=== PATIENT | female | born 1955 | race Caucasian/White ===

== ENCOUNTER 2016-05-11 05:45 | Inpatient (IN) | payer OTHER ==
[2016-05-11] MEDS ORDERED: ASPIRIN 81 MG CHEWABLE TABLETS PO ONE (06:04)
--- NOTE | 2016-05-11 06:14 | PDOC ---
History of Present Illness - General Chief Complaint: Respiratory Distress Stated Complaint: DIFFICULTY BREATHING Time Seen by Provider: 05/11/16 05:53 - History of Present Illness Initial Comments: 05/11/16 06:10 CHIEF COMPLAINT: shortness of breath HISTORY OF PRESENT ILLNESS: 61 yo F with significant PMH of ESRD, breast ca (s/ p surgery, currently undergoing radiation), HTN, SC (s/p CABG- Triple Bypass, 2 Stents), a-fib, aortic stenosis, CHF, GI bleed, anxiety, presents to the ED with shortness of breath. Patient states she is due for dialysis today but "might have drank too much liquid last night" and began feeling short of breath. No recent travel or sick contacts. PAST MEDICAL HISTORY: Denies past medical history FAMILY HISTORY: Denies SOCIAL HISTORY: Denies tobacco, alcohol, illicit drug use. SURGICAL HISTORY: thrombectomy, CABG, stent placement x 2 ALLERGIES: No known drug allergies REVIEW OF SYSTEMS General/Constitutional: Denies fever or chills. Denies weakness, weight change. HEENT: Denies change in vision. Denies ear pain or discharge. Denies sore throat. Cardiovascular: Denies chest pain or shortness of breath. Respiratory: Shortness of breath. Denies cough, wheezing, or hemoptysis. Gastrointestinal: Denies nausea, vomiting, diarrhea or constipation. Genitourinary: ESRD, due for dialysis today. Musculoskeletal: Denies joint or muscle swelling or pain. Denies neck or back pain. Skin and breasts: Denies rash or easy bruising. Neurologic: Denies headache, vertigo, loss of consciousness, or loss of sensation. PHYSICAL EXAM General Appearance: BP 153/136. Anxious, tearful. Appropriately dressed. No apparent distress. HEENT: EOMI, PERRLA. Neck: Supple. Trachea midline. No tenderness, rigidity, carotid bruit, stridor , lymphadenopathy, or thyromegaly. Respiratory/Chest: SOB. Lungs CTAB. No crackles, rales, rhonchi, stridor, wheezing, dullness Cardiovascular: RRR. S1, S2. No JVD, murmur, bradycardia, tachycardia. Vascular Pulses: Dorsalis-Pedis (R): 2+, Dorsalis-Pedis (L): 2+ Gastrointestinal/Abdominal: Normal bowel sounds. Abdomen soft, non-distended. Lymphatic: No adenopathy, tenderness. Musculoskeletal/Extremities: Dialysis fistula to L upper arm. Old dialysis fistula to L forearm, no longer in use. FROM of all extremities, normal capillary refill. No tenderness to extremities, pedal edema, swelling, erythema or deformity. Integumentary: Appropriate color, dry, warm. No cyanosis, erythema, jaundice or rash Neurologic: cleaning specialist II-XII intact. Fully oriented, alert. Appropriate mood/affect. Motor strength 5/5. No appreciable EOM palsy, facial droop or sensory deficit. Past History - Past Medical History Allergies/Adverse Reactions: Allergies Allergy/AdvReac Type Severity Reaction Status Date / Time No Known Drug Allergies Allergy Verified 05/11/16 05:56 PLASTIC TAPE Allergy "RASH,ITCHY Uncoded 05/11/16 05:56 " Home Medications: Ambulatory Orders Aspirin [ASA -] 81 mg PO DAILY 12/04/15 Clopidogrel Bisulfate [Plavix -] 75 mg PO DAILY 12/04/15 Omeprazole [Prilosec] 20 mg PO DAILY 12/04/15 Pravastatin Sodium [Pravachol -] 20 mg PO HS 12/04/15 Sevelamer Carbonate [Renvela -] 2,400 mg PO TID 12/04/15 Metoprolol Succinate [Toprol Xl -] 12.5 mg PO DAILY 01/21/16 Hydrocodone/Acetaminophen [Lortab 5-325 mg Tablet] 1 - 2 each PO QID #30 tablet MDD 5 pills 01/22/16 Anemia: Yes Asthma: Yes Cancer: No Cardiac Disorders: Yes (BYPASS SX X3, 3STENTS) CVA: No COPD: Yes CHF: No Dementia: No Diabetes: No Dialysis: Yes (tues, thurs, sat) GI Disorders: Yes (gerd) Disorders: Yes (esrd) HTN: Yes Hypercholesterolemia: Yes Liver Disease: No Seizures: No Thyroid Disease: No - Surgical History Abdominal Surgery: No Cardiac Surgery: Yes (BYPASS SX X3 stent x 3) Cholecystectomy: Yes Lung Surgery: No Neurologic Surgery: No - Immunization History Immunization Up to Date: Yes (FLU AND PNA ) - Psycho/Social/Smoking Cessation Hx Anxiety: No Suicidal Ideation: No Smoking Status: Yes Smoking History: Former smoker Years of Tobacco Use: 40 Have you smoked in the past 12 months: Yes Number of Cigarettes Smoked Daily: 20 If you are a former smoker, when did you quit?: 4 MONTHS AGO Information on smoking cessation initiated: Yes 'Breaking Loose' booklet given: 05/11/16 Hx Alcohol Use: No Drug/Substance Use Hx: No Substance Use Type: None Hx Substance Use Treatment: No *Physical Exam - Vital Signs Last Vital Signs Temp Pulse Resp BP Pulse Ox 98.1 F 91 H 22 153/136 100 05/11/16 05:56 05/11/16 05:56 05/11/16 05:56 05/11/16 05:56 05/11/16 05:56 ED Treatment Course - LABORATORY CBC & Chemistry Diagram: 05/11/16 10:00 05/11/16 08:03 - RADIOLOGY Radiology Studies Ordered: Category Date Time Status CHEST PA & LAT [RAD] Stat Radiology 05/11/16 06:04 Ordered Medical Decision Making - Medical Decision Making 05/11/16 06:22 61 yo F with significant PMH of ESRD, breast ca, HTN, SC (s/p CABG- Triple Bypass, 2 Stents), a-fib, aortic stenosis, CHF, GI bleed, anxiety, presents to the ED with shortness of breath. BP 153/136 on arrival to ED. EKG indicates ST & T wave changes, inferior/ anterolateral ischemia. Reviewed by myself and ER attending Dawson. Per MD Osman, will start Nitro drip at 10mcg/min. -CBC, CMP, PT/INR, Mg, cardiac profile -CXR -ASA -O2 2L via NC Reviewed most recent EKG from 12/01, EKG is unchanged from previous. BP continues to be elevated to 171/117. Patient complains of headache. -1g Tylenol -1.25 Vasotec IVPB Chest x-ray notable for increased fluids to lower lobes bilaterally. Will admit to tele. Cards consult placed. Nephrology consult ordered as patient is due for dialysis today. *DC/Admit/Observation/Transfer Diagnosis at time of Disposition: Shortness of breath at rest, Renal failure, ESRD (end stage renal disease) on dialysis
[2016-05-11] MEDS ORDERED: NITROGLYCERIN 25MG/D5W 250ML 250 ML IVPB SCH (06:15)
[2016-05-11] MEDS ORDERED: ASPIRIN 81 MG CHEWABLE TABLETS ONE (06:31)
[2016-05-11] MEDS ORDERED: NITROGLYCERIN 25MG/D5W 250ML 250 ML IVPB ONE (06:31)
[2016-05-11 06:40] LABS: EOSINOPHIL 0.2 % (0-4.5); MCH 35.5 pg (25.7-33.7); MCHC 32.7 g/dl (32.0-36.0); MEAN CELL VOLUME 108.4 fl (80-96); MEAN PLT VOLUME 9.7 fl (7.5-11.1); NEUTROPHILS 80.4 % (42.8-82.8); PLATELET COUNT 226 K/MM3 (134-434); RDW 17.9 % (11.6-15.6)
[2016-05-11] MEDS ORDERED: ENALAPRILAT DIHYDRATE 1.25 MG/1 ML VIAL IVPB ONE (07:00)
[2016-05-11] MEDS ORDERED: ACETAMINOPHEN 500 MG TABLET (FP) PO ONE (07:00)
[2016-05-11] MEDS ORDERED: ENALAPRILAT DIHYDRATE 2.5 MG/2 ML VIAL IVPB ONE (07:05)
--- NOTE | 2016-05-11 07:43 | PDOC ---
*Physical Exam - Vital Signs Last Vital Signs Temp Pulse Resp BP Pulse Ox 98.1 F 91 H 22 132/93 100 05/11/16 05:56 05/11/16 05:56 05/11/16 05:56 05/11/16 07:12 05/11/16 05:56 ED Treatment Course - LABORATORY CBC & Chemistry Diagram: 05/11/16 10:00 05/11/16 08:03 - ADDITIONAL ORDERS Additional order review: Laboratory Results 05/11/16 05/11/16 06:26 06:26 INR Cancelled Sodium Cancelled Potassium Cancelled Chloride Cancelled Carbon Dioxide Cancelled Anion Gap Cancelled BUN Cancelled Creatinine Cancelled Creat Clearance w eGFR Cancelled Random Glucose Cancelled Calcium Cancelled Magnesium Cancelled Total Bilirubin Cancelled AST Cancelled ALT Cancelled Alkaline Phosphatase Cancelled Creatine Kinase Cancelled Troponin I Cancelled Total Protein Cancelled Albumin Cancelled 05/11/16 06:26 RBC 3.04 L MCV 108.4 H MCHC 32.7 RDW 17.9 H MPV 9.7 D Neutrophils % 80.4 Lymphocytes % 12.8 D Monocytes % 3.6 L Eosinophils % 0.2 D Basophils % 3.0 H D - Medications Given in the ED: ED Medications Discontinued Medications Generic Name Dose Route Start Last Admin Trade Name Freq PRN Reason Stop Dose Admin Aspirin 162 mg 05/11/16 06:04 05/11/16 06:49 Asa - PO 05/11/16 06:05 162 mg ONCE ONE Administration Enalaprilat 1.25 mg 05/11/16 07:00 05/11/16 07:07 Vasotec Injection - IVPB 05/11/16 07:01 1.25 mg ONCE ONE Administration Nitroglycerin/Dextrose 250 mls @ 6 mls/hr 05/11/16 06:15 05/11/16 06:49 Nitroglycerin 25mg/D5w 250ml IVPB 6 mls/hr TITR JULIO Administration 10 MCG/MIN Medical Decision Making - Medical Decision Making 05/11/16 07:18 Patient received in sign out from KATIE Montanez. Patient with complaints of shortness of breath worsening this morning. Patient with history of end-stage renal, breast CA, and is followed by Dr. Piper for nephrology. Patient states is due for dialysis today. Patient initially was started on a nitro drip and was given Vasotec due to elevated blood pressure. Patient currently is normotensive. Patient be stopped on the nitro drip until I speak with Dr. Piper. Patient's chest x-ray does show increased lung markings, comp is pending. No acute EKG changes noted when compared to previous November 2015. BNP added 05/11/16 07:42 Case discussed with suborbital states will put patient on dialysis today and agrees that nature drip should be. Since she states patient is sensitive hypertensive patient and will become hypotensive in dialysis. Patient otherwise comfortable with 100% nonrebreather but will assess her O2 sat on 3 L nasal cannula. 05/11/16 08:33 D-dimer was also added. Patient currently satting at 97% with 3 L nasal cannula. Awaiting callback from Dr. Philip for [facility] inpatient admission. 05/11/16 10:00 comp hemolyzed and was resent. Case discussed with Dr. Philip who accepted patient. Patient currently in route to dialysis. *DC/Admit/Observation/Transfer Diagnosis at time of Disposition: Shortness of breath at rest, Renal failure, ESRD (end stage renal disease) on dialysis - Discharge Dispostion Admit: Yes
--- NOTE | 2016-05-11 09:47 | CON.NEP ---
Consult Consult Specialty:: Nephrology Referred by:: ER attending Reason for Consultation:: ESRD - History of Present Illness Chief Complaint: Shortness of breath History of Present Illness: 61 with CAD post CABG has stents as well LV dysf 2016 diagnosed with left breast cancer underwent left mastectomy in Jan 2016 Doing poorly post RT Lives alone Weak In with Shortness of breath was due today claims they took off 3 kg less than what she had on on because of hypotension - History Source History Provided By: Patient - Past Medical History Cardio/Vascular: Yes: AFIB, Aortic Stenosis, CAD, CHF, HTN, Hyperlipdemia, [place], Pulmonary Hypertension Pulmonary: Yes: Asthma, COPD Gastrointestinal: Yes: GI Bleed (colitis, requiring transfusions), Other ( COLITIS ) Renal/: Yes: Renal Failure, Hemodialysis ...LMP: 12/11/10 Psych: Yes: Anxiety - Past Surgical History Past Surgical History: Yes: None, AV Fistula/Graft, Stent - Alcohol/Substance Use Hx Alcohol Use: No - Smoking History Smoking history: Former smoker Have you smoked in the past 12 months: Yes Aproximately how many cigarettes per day: 20 If you are a former smoker, when did you quit?: 4 MONTHS AGO - Social History Usual Living Arrangement: Other (daughter is here for 5 days and then sister is arriving on from [facility]) ADL: Independent History of Recent Travel: No Home Medications - Allergies Allergies/Adverse Reactions: Allergies Allergy/AdvReac Type Severity Reaction Status Date / Time No Known Drug Allergies Allergy Verified 05/11/16 05:56 PLASTIC TAPE Allergy "RASH,ITCHY Uncoded 05/11/16 05:56 " - Home Medications Home Medications: Ambulatory Orders Aspirin [ASA -] 81 mg PO DAILY 12/04/15 Clopidogrel Bisulfate [Plavix -] 75 mg PO DAILY 12/04/15 Omeprazole [Prilosec] 20 mg PO DAILY 12/04/15 Pravastatin Sodium [Pravachol -] 20 mg PO HS 12/04/15 Sevelamer Carbonate [Renvela -] 2,400 mg PO TID 12/04/15 Metoprolol Succinate [Toprol Xl -] 12.5 mg PO DAILY 01/21/16 Hydrocodone/Acetaminophen [Lortab 5-325 mg Tablet] 1 - 2 each PO QID #30 tablet MDD 5 pills 01/22/16 Home Medications (free text): arimidex 1 mg daily Review of Systems - Review of Systems Respiratory: reports: Wheezing Nephrology Consult - Height Height: 5 ft 4 in - Weight Weight: 227 lb 1.218 oz - BMI Body Mass Index (BMI): 38.9 - Lab Results Anion Gap: Anion Gap Anion Gap Cancelled 05/11/16 06:26 - Imaging Chest X-ray: Image Reviewed - Physical Examination Vital Signs: Vital Signs Temperature 97.9 F 05/11/16 08:29 Pulse Rate 73 05/11/16 08:29 Respiratory Rate 18 05/11/16 08:29 Blood Pressure 136/92 05/11/16 08:29 O2 Sat by Pulse Oximetry (%) 100 05/11/16 08:29 Respiratory: Yes: Wheezes Edema: Yes Assessment/Plan 61 with CAD ESRD obesity breast cancer post mastectomy RT and now on po arimidex on asa plavix metoprolol REnvela as her binder Appears with fluid on board wheezing To UF her for 1.5 hr target 2 kg HD for 2 hrs target 2 kg admit repeat HD in am
[2016-05-11 09:49] LABS: ANISOCYTOSIS 1+; POLYCHROMASIA 1+
--- NOTE | 2016-05-11 10:54 | PN ---
Progress Note (short form) - Note Progress Note: Cardiology Consult Dictated 1. Chronic COPD 2. ESRD 3. CAD s/p CABG, PCI 11/2015 4. Chronic Diastolic CHF 5. Aortic stenosis, moderate 6. Moderate Carotid Stenosis 7. PAF 8. History of GI bleed 9. Breast CA s/p lumpectomy, completed XRT now on hormonal Rx. 10. Anxiety Presents to ER with worsening PEREZ, CXR appears volume overloaded. REC: 1. HD for volume removal, also planned for tomorrow 2. Echo to re-assess severity 3. Cycle cardiac enzymes 4. Cont ASA and Plavix, recent PCI (within the year) 5. Low dose Toprol XL- 12.5 daily (has been reduced due to low BP at HD)
--- NOTE | 2016-05-11 10:58 | EKG ---
Test Reason : Blood Pressure : / mmHG Vent. Rate : 105 BPM Atrial Rate : 107 BPM P-R Int : 000 ms QRS Dur : 100 ms QT Int : 332 ms P-R-T Axes : 000 049 229 degrees QTc Int : 438 ms UNDETERMINED RHYTHM ABNORMAL ECG WHEN COMPARED WITH ECG OF 06-DEC-2015 01:03, BASELINE ARTIFACT MAKES IT DIFFICULAT TO INTERPRETE Confirmed by ALIYAH HAN MD ([id number]) on 05/11/2016 10:58:08 AM Referred By: Confirmed By:ALIYAH HAN MD
[2016-05-11 11:20] LABS: ALBUMIN 3.3 g/dl (3.4-5.0); BILIRUBIN,TOTAL 0.4 mg/dL (0.2-1.0); CALCIUM 7.4 mg/dL (8.5-10.1); MAGNESIUM 2.1 mg/dL (1.8-2.4); PHOSPHOROUS 5.3 mg/dL (2.5-4.9); TOT PROT 6.7 g/dl (6.4-8.2)
[2016-05-11 11:30] LABS: MCH 35.5 pg (25.7-33.7); MCHC 32.4 g/dl (32.0-36.0); MEAN CELL VOLUME 109.8 fl (80-96); MEAN PLT VOLUME 9.2 fl (7.5-11.1); PLATELET COUNT 166 K/MM3 (134-434); RDW 17.5 % (11.6-15.6); WHITE BLOOD COUNT 5.7 K/mm3 (4.0-10.0)
[2016-05-11 11:34] LABS: TROPONIN I 0.05 ng/ml (0.00-0.05)
[2016-05-11 11:40] LABS: CREATININE 10.7 mg/dL (0.55-1.02)
[2016-05-11 11:48] LABS: INR 1.15 (0.82-1.09); PROTHROMBIN TIME (PATIENT) 12.7 SEC (9.98-11.88)
[2016-05-11] MEDS: METOPROLOL SUCCINATE 25 MG TAB.SR.24H (FP) PO SCH (14:38)
--- NOTE | 2016-05-11 16:35 | CONS ---
CARDIOLOGY CONSULTATION DATE OF CONSULTATION: 05/11/2016 REQUESTING PHYSICIAN: Roxanne Philip MD REASON FOR CONSULTATION: Congestive heart failure. HISTORY OF PRESENT ILLNESS: The patient is well known to our service from office and prior hospitalizations. She is a 61-year-old female with multiple medical problems including chronic COPD, recently quit smoking; end-stage renal disease on dialysis; coronary artery disease status post CABG several years ago and PCI, most recently November 2015; chronic diastolic CHF; moderate aortic stenosis; moderate carotid stenosis; paroxysmal atrial fibrillation, not on full anticoagulation due to history of previous severe GI bleed; breast cancer status post lumpectomy, completed radiation therapy, now on hormonal therapy; and anxiety. She now presents to the emergency room with approximately 1 day of worsening shortness of breath. Patient reports that she has not had dietary indiscretions; she has been going to dialysis regularly, although she reports several sessions have been cut slightly short due to the consistent development of hypotension during dialysis. She denies chest pain, palpitations, PND, orthopnea, fevers, chills, or cough. Her chest x-ray appears mildly volume overloaded, without gross infiltrates. She has allergies to PLASTIC TAPE but no known drug allergies. Her home medications include Toprol-XL 12.5 daily, aspirin 81 daily, Plavix 75 daily, Pravachol 20 mg nightly, Renvela, Prilosec. FAMILY HISTORY: Noncontributory. SOCIAL HISTORY: Patient quit smoking 1 week ago. She denies alcohol or illicit drug use. PHYSICAL EXAMINATION: General: Patient is currently stable, without complaints on dialysis. Vital Signs: Temperature 97.9, pulse 73 and regular, blood pressure 136/92, O2 saturation 100 on room air. Heart: S1, S2. There is a 2/6 systolic murmur at the right sternal border consistent with her known history of aortic stenosis. Chest: With decreased breath sounds at the bases. Abdomen: Generally soft, nontender. No rebound or guarding. Extremities: No edema. Her presenting EKG showed sinus tachycardia at 105 beats per minute with left ventricular hypertrophy and diffuse ST and T changes. Chest x-ray is as above. LABORATORY DATA: White count 8, hematocrit 33, platelets 226. D-dimer pending. Basic metabolic panel is pending including 1st set of troponins and BNP. ASSESSMENT: A 61-year-old female with end-stage renal disease on dialysis; chronic hypotension at dialysis, sometimes limiting full volume removal; coronary artery disease status post coronary artery bypass graft, percutaneous coronary intervention November 2015; paroxysmal atrial fibrillation, not on anticoagulation due to previous history of gastrointestinal bleed; moderate aortic stenosis; chronic diastolic congestive heart failure; now presents with worsening shortness of breath and volume overload. PLAN: 1. Dialysis today and planned again tomorrow for volume removal. 2. Cycle cardiac enzymes. 3. Echocardiogram to reassess EF and severity of aortic stenosis. 4. Continue aspirin and Plavix. 5. Try to continue low-dose Toprol for coronary disease benefit as well as prevention of paroxysmal atrial fibrillation - we have needed to reduce the dose due to hypotension at HD which may be due either to aortic stenosis or perhaps subclavian stenosis. Appreciate nephrology evaluation. Will follow. Thank you for the consultation. NICOLE MENDEZ M.D. [id number]
[2016-05-11] MEDS ORDERED: morphine CARPU-JECT 4 MG/1 ML DISP.SYRIN IVPUSH ONE (17:16)
[2016-05-11] MEDS ORDERED: morphine CARPU-JECT 4 MG/1 ML DISP.SYRIN ONE (17:17)
[2016-05-12 00:36] VITALS: BMI 38.1
--- NOTE | 2016-05-12 01:58 | HP ---
Admitting History and Physical - Admission Chief Complaint: SOB History of Present Illness: Pt is a 61 y/o morbidly obese female w/ multiple medical problems including ESRD on HD(TIW). Pt had dialysis on sat. but states she thinks they did not take off all of her fluid bc pt began to feel SOB. PT denied any chest pain/ palpitations. Pt has also been undergoing RT for breast ca wc has make her weaker. On admission her BNP was >86,000. - Past Medical History Cardiovascular: Yes: AFIB, Aortic Stenosis, CAD, CHF, HTN, Hyperlipdemia, [place], Pulmonary Hypertension Pulmonary: Yes: Asthma, COPD Gastrointestinal: Yes: GI Bleed (colitis, requiring transfusions), Other ( COLITIS ) Renal/: Yes: Renal Failure, Hemodialysis ...LMP: 12/11/10 ...: No Heme/Onc: Yes: Cancer (Recently diagnoses breast Cancer) Psych: Yes: Anxiety - Past Surgical History Past Surgical History: Yes: AV Fistula/Graft, CABG, Cholecystectomy, Stent Additional Past Surgical History: Lt mastectomy - Smoking History Smoking history: Former smoker Have you smoked in the past 12 months: Yes Aproximately how many cigarettes per day: 20 If you are a former smoker, when did you quit?: 1 weak ago - Alcohol/Substance Use Hx Alcohol Use: No - Social History ADL: Independent History of Recent Travel: No Home Medications - Allergies Allergies/Adverse Reactions: Allergies Allergy/AdvReac Type Severity Reaction Status Date / Time No Known Drug Allergies Allergy Verified 05/11/16 05:56 PLASTIC TAPE Allergy "RASH,ITCHY Uncoded 05/11/16 05:56 " - Home Medications Home Medications: Ambulatory Orders Aspirin [ASA -] 81 mg PO DAILY 12/04/15 Clopidogrel Bisulfate [Plavix -] 75 mg PO DAILY 12/04/15 Omeprazole [Prilosec] 20 mg PO DAILY 12/04/15 Pravastatin Sodium [Pravachol -] 20 mg PO HS 12/04/15 Sevelamer Carbonate [Renvela -] 2,400 mg PO TID 12/04/15 Metoprolol Succinate [Toprol Xl -] 12.5 mg PO DAILY 01/21/16 Hydrocodone/Acetaminophen [Lortab 5-325 mg Tablet] 1 - 2 each PO QID #30 tablet MDD 5 pills 01/22/16 Family Disease History - Family Disease History Family History: Unremarkable Review of Systems - Review of Systems Constitutional: reports: Malaise, Weakness Neck: reports: No Symptoms Cardiovascular: reports: Shortness of Breath Respiratory: reports: SOB Gastrointestinal: reports: No Symptoms Genitourinary: reports: No Symptoms Physical Examination Vital Signs: Vital Signs Temperature 97.7 F 05/11/16 23:25 Pulse Rate 85 05/11/16 23:25 Respiratory Rate 20 05/11/16 23:25 Blood Pressure 100/50 05/11/16 23:25 O2 Sat by Pulse Oximetry (%) 96 05/12/16 00:16 Constitutional: Yes: Well Nourished HENT: Yes: WNL Neck: Yes: Supple Cardiovascular: Yes: WNL, Regular Rate and Rhythm, Murmur Respiratory: Yes: Rales Gastrointestinal: Yes: WNL, Normal Bowel Sounds, Soft Musculoskeletal: Yes: WNL Edema: No Neurological: Yes: WNL, Alert, Oriented Labs: CBC, BMP 05/11/16 10:00 05/11/16 10:00 Problem List - Problems (1) ESRD (end stage renal disease) on dialysis Assessment/Plan: Pt received dialysis and is scheduled again for am Monitor electroyltes Cont renvela As per renal Code(s): N18.6 - END STAGE RENAL DISEASE Z99.2 - DEPENDENCE ON RENAL DIALYSIS (2) Chronic combined systolic (congestive) and diastolic (congestive) heart failure Assessment/Plan: Check echo Diuresis as per cardio Code(s): I50.42 - CHRONIC COMBINED SYSTOLIC AND DIASTOLIC HRT FAIL (3) HTN (hypertension) Assessment/Plan: BP stable Code(s): I10 - ESSENTIAL (PRIMARY) HYPERTENSION (4) Aortic stenosis Assessment/Plan: Repeat echo Code(s): I35.0 - NONRHEUMATIC AORTIC (VALVE) STENOSIS (5) Atrial fibrillation Assessment/Plan: Paroxysmal afib Pt is in NSR Code(s): I48.91 - UNSPECIFIED ATRIAL FIBRILLATION Qualifiers: Atrial fibrillation type: paroxysmal Qualified Code(s): I48.0 - Paroxysmal atrial fibrillation (6) CAD (coronary artery disease) Code(s): I25.10 - ATHSCL HEART DISEASE OF [place] CORONARY ARTERY W/O ANG PCTRS (7) HLD (hyperlipidemia) Code(s): E78.5 - HYPERLIPIDEMIA, UNSPECIFIED (8) S/P CABG (coronary artery bypass graft) Code(s): Z95.1 - PRESENCE OF AORTOCORONARY BYPASS GRAFT
[2016-05-12] MEDS ORDERED: ACETAMINOPHEN 325 MG TABLET (FP) PO ONE (06:45)
--- NOTE | 2016-05-12 09:02 | PN ---
Progress Note (short form) - Note Progress Note: RENAL FEELS BETTER CHEST CLEAR MASTECTOMY WOUND HEALED EXT NO EDEMA LEFT ARM AVG POS BRUIT 61 CAD LV DYSF ESRD OBESITY GAINS A LOT OF FLUID BETWEEN TREATMENTS INSPITE OF REPEATED COUNSELLING 4 KG REMOVED YESTERDAY K WAS ELEVATED AT 6.5 YESTERDAY BP LOW 90S TODAY BEST TO HOLD HD TODAY IF GOES HOME WILL COME TO [place] FOR DIALYSIS THURS IF INHOUSE WILL DO HER HERE ERNESTINA GETTING ECHO DONE HERE ALL NOTES REVIEWED
--- NOTE | 2016-05-12 09:18 | PN ---
Progress Note, Physician Chief Complaint: echo being performed. Patient reports skin sensitivity due to prior XRT Explained importance of obtaining echo to assess for progression, especially important in light of low BP at HD History of Present Illness: for HD again today BP running low: 90-100mmHg - Current Medication List Current Medications: Active Medications Aspirin (Asa -) 81 mg PO DAILY [facility] Atorvastatin Calcium (Lipitor -) 10 mg PO HS [facility]UL[facility] Clopidogrel Bisulfate (Plavix -) 75 mg PO DAILY [facility] Epoetin Lobo (Epogen -) 10,000 units SQ ONCE ONE Stop: 05/12/16 09:04 Heparin Sodium (Porcine) (Heparin -) 5,000 unit SQ BID [facility] Metoprolol Succinate (Toprol Xl -) 12.5 mg PO DAILY [facility] Last Admin: 05/11/16 14:38 Dose: Not Given Non-Formulary Medication (Hydrocodone/Acetaminophen [Lortab 5-325 Mg Tablet]) 1 - 2 each PO QID [facility] Sevelamer Carbonate (Renvela -) 2,400 mg PO TIDCM [facility] - Objective Vital Signs: Vital Signs Temperature 97.9 F 05/12/16 06:20 Pulse Rate 76 05/12/16 06:20 Respiratory Rate 20 05/12/16 06:20 Blood Pressure 93/52 05/12/16 06:20 O2 Sat by Pulse Oximetry (%) 96 05/12/16 00:16 Constitutional: Yes: No Distress Eyes: Yes: Conjunctiva Clear Cardiovascular: Yes: Regular Rate and Rhythm (2/6 IRISH RSB) Respiratory: Yes: Other (clear anteriorly with decreased basilar breath sounds, no wheezing.) Gastrointestinal: Yes: Soft, Abdomen, Obese Edema: No Neurological: Yes: Alert, Oriented ...Motor Strength: WNL Labs: INR, PTT INR 1.15 (0.82-1.09) H 05/11/16 10:00 Laboratory Tests 05/11/16 05/11/16 05/11/16 06:26 08:03 10:00 WBC 8.0 Hgb Hct 33.0 Plt Count 226 D Sodium 136 Pending Potassium 6.5 H* D Cancelled BUN 81 H D Pending Creatinine 10.7 H* D Pending Phosphorus 5.3 H Alkaline Phosphatase 228 H D Creatine Kinase 74 Troponin I 0.05 B-Natriuretic Peptide 27558.41 H 05/11/16 10:00 WBC 5.7 Hgb 10.1 L Hct 31.1 L Plt Count 166 D Sodium Potassium BUN Creatinine Phosphorus Alkaline Phosphatase Creatine Kinase Troponin I B-Natriuretic Peptide - ....Imaging Ultrasound: Report Reviewed (Repeat carotid US: moderate to severe b/l carotid stenosis.), Image Reviewed Assessment/Plan Cardiology Consult Dictated 1. Chronic COPD 2. ESRD 3. CAD s/p CABG, PCI 11/2015 at [facility] 4. Chronic Diastolic CHF 5. Aortic stenosis, moderate 6. Moderate to severe bilateral carotid stenosis 7. PAF 8. History of GI bleed 9. Breast CA s/p lumpectomy, completed XRT now on hormonal Rx. 10. Anxiety Presents to ER with worsening PEREZ, volume overloaded: acute on chronic decompensated diastolic CHF, possibly valvular CHF. REC: 1. HD for volume removal, planned again today as/if BP allows. 2. Echo to re-assess severity being performed this morning. 3. Cycle cardiac enzymes, 2nd set was cancelled for unclear reasons. 4. Cont ASA and Plavix, recent PCI (within the year) 5. Low dose Toprol XL- 12.5 daily as BP tolerates(has been reduced from 25mg due to low BP at HD) If aortic stenosis is not found to be severe, then vascular etiology of low BP should be explored (subclavian stenosis?).
[2016-05-12] MEDS ORDERED: HYDROCODONE PO SCH (10:00)
[2016-05-12] MEDS ORDERED: [UNRECOGNIZED DRUG - OTHER] PO SCH (10:00)
[2016-05-12] MEDS ORDERED: ACETAMINOPHEN PO SCH (10:00)
[2016-05-12] MEDS: ASPIRIN 81 MG CHEWABLE TABLETS PO SCH (10:42)
[2016-05-12] MEDS: HEPARIN NA (PORCINE) 5,000 UNITS/ML 1ML VIAL SQ SCH ×3 (10:42→21:57)
[2016-05-12] MEDS: METOPROLOL SUCCINATE 25 MG TAB.SR.24H (FP) PO SCH (10:43)
[2016-05-12] MEDS: CLOPIDOGREL BISULFATE 75 MG TABLET (FP) PO SCH (10:43)
[2016-05-12] MEDS: SEVELAMER CARBONATE 800 MG TAB (FP) PO SCH ×3 (10:48→17:58)
[2016-05-12] MEDS ORDERED: EPOETIN ALFA 10,000 UNIT/1 ML VIAL SQ ONE (11:30)
[2016-05-12] MEDS ORDERED: ACETAMINOPHEN 325 MG TABLET (FP) ONE (21:51)
[2016-05-12] MEDS ORDERED: ATORVASTATIN CA 10 MG TABLET (FP) PO SCH (22:00)
[2016-05-13 00:06] LABS: HEP B SURFACE AB Reactive (.)
[2016-05-13] MEDS: SEVELAMER CARBONATE 800 MG TAB (FP) PO SCH ×2 (09:00→13:45)
--- NOTE | 2016-05-13 10:08 | PN ---
Progress Note, Physician Chief Complaint: no distress HD not done yesterday, BP limited. Scheduled for today She denies CP, less SOB. Echo done yesterday but report not available - Current Medication List Current Medications: Active Medications Aspirin (Asa -) 81 mg PO DAILY [facility] Last Admin: 05/12/16 10:42 Dose: 81 mg Atorvastatin Calcium (Lipitor -) 10 mg PO HS [facility] Last Admin: 05/12/16 21:57 Dose: 10 mg Clopidogrel Bisulfate (Plavix -) 75 mg PO DAILY [facility] Last Admin: 05/12/16 10:43 Dose: 75 mg Epoetin Lobo (Epogen -) 10,000 units SQ ONCE ONE Stop: 05/12/16 09:04 Heparin Sodium (Porcine) (Heparin -) 5,000 unit SQ BID [facility] Last Admin: 05/12/16 21:57 Dose: Not Given Metoprolol Succinate (Toprol Xl -) 12.5 mg PO DAILY [facility] Last Admin: 05/12/16 10:43 Dose: 12.5 mg Non-Formulary Medication (Hydrocodone/Acetaminophen [Lortab 5-325 Mg Tablet]) 1 - 2 each PO QID [facility] Sevelamer Carbonate (Renvela -) 2,400 mg PO TIDCM [facility] Last Admin: 05/13/16 09:00 Dose: 2,400 mg - Objective Vital Signs: Vital Signs Temperature 98.2 F 05/13/16 08:41 Pulse Rate 81 05/13/16 08:41 Respiratory Rate 20 05/13/16 08:41 Blood Pressure 156/67 05/13/16 08:41 O2 Sat by Pulse Oximetry (%) 96 05/12/16 21:00 Constitutional: Yes: No Distress Cardiovascular: Yes: Regular Rate and Rhythm Respiratory: Yes: Other (slight rales right base, overall improved) Gastrointestinal: Yes: Soft Edema: No Neurological: Yes: Alert, Oriented Labs: INR, PTT INR 1.15 (0.82-1.09) H 05/11/16 10:00 Assessment/Plan Cardiology Consult Dictated 1. Chronic COPD 2. ESRD 3. CAD s/p CABG, PCI 11/[address] [facility] 4. Chronic Diastolic CHF 5. Aortic stenosis, moderate 6. Moderate to severe bilateral carotid stenosis 7. PAF 8. History of GI bleed 9. Breast CA s/p lumpectomy, completed XRT now on hormonal Rx. 10. Anxiety Admitted with worsening PEREZ, volume overloaded: acute on chronic decompensated diastolic CHF, possibly valvular CHF. REC: 1. HD for volume removal, planned again today (05/13) as/if BP allows- not done yesterday. 2. Echo to re-assess severity being performed 05/12, awaiting report. 3. Cycle cardiac enzymes, 2nd set was cancelled again yesterday; will order again for today with planned HD. 4. Cont ASA and Plavix, recent PCI (within the year) 5. Low dose Toprol XL- 12.5 daily as BP tolerates(has been reduced from 25mg due to low BP at HD) May need to hold completely on HD days.
[2016-05-13] MEDS: CLOPIDOGREL BISULFATE 75 MG TABLET (FP) PO SCH ×2 (10:52→14:26)
[2016-05-13] MEDS: METOPROLOL SUCCINATE 25 MG TAB.SR.24H (FP) PO SCH ×2 (10:52→14:26)
[2016-05-13] MEDS: ASPIRIN 81 MG CHEWABLE TABLETS PO SCH ×2 (10:52→14:26)
[2016-05-13] MEDS: HEPARIN NA (PORCINE) 5,000 UNITS/ML 1ML VIAL SQ SCH (10:52)
[2016-05-13 11:12] LABS: BASOPHIL 0.5 % (0-2.0); EOSINOPHIL 0.5 % (0-4.5); MCH 35.6 pg (25.7-33.7); MCHC 32.7 g/dl (32.0-36.0); MEAN CELL VOLUME 108.8 fl (80-96); MEAN PLT VOLUME 8.6 fl (7.5-11.1); NEUTROPHILS 78.4 % (42.8-82.8); PLATELET COUNT 149 K/MM3 (134-434); RDW 17.3 % (11.6-15.6); WHITE BLOOD COUNT 4.3 K/mm3 (4.0-10.0)
[2016-05-13] MEDS ORDERED: EPOETIN ALFA 10,000 UNIT/1 ML VIAL SQ ONE (11:30)
[2016-05-13 11:37] LABS: ALBUMIN 2.9 g/dl (3.4-5.0); BILIRUBIN,TOTAL 0.4 mg/dL (0.2-1.0); CALCIUM 7.5 mg/dL (8.5-10.1); TOT PROT 6.1 g/dl (6.4-8.2)
[2016-05-13 11:46] LABS: TROPONIN I 0.05 ng/ml (0.00-0.05)
[2016-05-13 12:07] LABS: CREATININE 10.9 mg/dL (0.55-1.02)
[2016-05-13 14:23] VITALS: BP 111/69; PULSE 82; TEMP 97.9
== END 2016-05-13 18:08 | disposition home or self-care (01) | DRG 291 ==
LOC: JER 05:45 → JERBED 09:12 → J6S 20:16 → OBSVTOIN 05-12 01:51
PROVIDERS: ADMIT Internal Medicine; ATTEND Internal Medicine
PROC: 5A1D60Z (ICD-10-PCS; principal; 2016-05-11)
DX: I13.2 Hypertensive heart and chronic kidney disease with heart failure and with stage 5 chronic kidney disease, or end stage renal disease (principal); N18.6 End stage renal disease; I50.33 Acute on chronic diastolic (congestive) heart failure; E66.2 Morbid (severe) obesity with alveolar hypoventilation; J44.9 Chronic obstructive pulmonary disease, unspecified; I25.10 Atherosclerotic heart disease of native coronary artery without angina pectoris; I35.0 Nonrheumatic aortic (valve) stenosis; I48.0 Paroxysmal atrial fibrillation; Z85.3 Personal history of malignant neoplasm of breast; F41.8 Other specified anxiety disorders; E78.5 Hyperlipidemia, unspecified; I25.2 Old myocardial infarction; I27.2 Other secondary pulmonary hypertension; I65.23 Occlusion and stenosis of bilateral carotid arteries; J45.909 Unspecified asthma, uncomplicated; Z68.38 Body mass index [BMI] 38.0-38.9, adult; Z71.3 Dietary counseling and surveillance; Z87.891 Personal history of nicotine dependence; Z95.1 Presence of aortocoronary bypass graft; Z95.5 Presence of coronary angioplasty implant and graft
CPT/HCPCS: 36415; 71010-TC; 80053; 82550; 83735; 83880; 84100; 84484; 85025; 85027; 85379; 85610; 86704; 86706; 86708; 86803; 87340; 93005; 93010; 93306-TC; 93880-TC; 99285-25; G0378; J0885; J1644

== ENCOUNTER → 2016-09-21 | Emergency (ER) | payer OTHER ==
[2016-09-21 12:33] VITALS: TEMP 97.8; BMI 35.2
--- NOTE | 2016-09-21 12:49 | PDOC ---
History of Present Illness - General History Source: Patient Exam Limitations: No Limitations <Taisha Rios - Last Filed: 09/21/16 14:11> - General History Source: Patient Exam Limitations: No Limitations - History of Present Illness Initial Comments: 09/21/16 13:47 The patient is a 61 year old, with significant past medical history of end stage renal disease (dialysis , , Tue), breast cancer (s/p left breast mastectomy 01/2017), HTN, [place] (s/p CABG - triple bypass, 2 stents), A-fib, aortic stenosis, CHF, GI bleed, and anxiety , who presents today complaining of shortness of breath starting at midnight, and left upper back pain. The patient is due for dialysis today. The patient was elevated on 4 pillows last night with mild relief. She also used her at home O2. The patient has a cough, but states that this usually occurs when she uses the nasal O2. The patients son states that the patient does not seem abnormally bloated and he has been watching what she ate.The patient notes that the left upper back pain has been present since the mastectomy. Her PCP already had an X Ray performed and she has followed up with her oncologist who states that it is muscular. She notes that her dry weight is 103.3 kilos. No chest pain. No fever, chills, nausea, vomiting. Allergies:plastic tape Social Hx: Tobacco use. PCP- Dr. Sandoval Brown Home Based Assistant: Dr. Piper [place] Supervisor: Dr. Cartwright <Geogrina Hanna - Last Filed: 09/21/16 18:34> - General Chief Complaint: Shortness of Breath Stated Complaint: Shortness of Breath Time Seen by Provider: 09/21/16 12:40 Past History - Past Medical History Anemia: Yes Asthma: Yes Cancer: No Cardiac Disorders: Yes (BYPASS SX X3, 3STENTS) CVA: No COPD: Yes CHF: No Dementia: No Diabetes: No Dialysis: Yes (, , tue) GI Disorders: Yes (gerd) Disorders: Yes (esrd) HTN: Yes Hypercholesterolemia: Yes Liver Disease: No Seizures: No Thyroid Disease: No - Surgical History Abdominal Surgery: No Cardiac Surgery: Yes (BYPASS SX X3 stent x 3) Cholecystectomy: Yes Lung Surgery: No Neurologic Surgery: No - Immunization History Immunization Up to Date: Yes (FLU AND PNA 2012-) - Psycho/Social/Smoking Cessation Hx Anxiety: No Suicidal Ideation: No Smoking Status: Yes Smoking History: Current some day smoker Years of Tobacco Use: 40 Have you smoked in the past 12 months: Yes Number of Cigarettes Smoked Daily: 1 If you are a former smoker, when did you quit?: 4 MONTHS AGO Information on smoking cessation initiated: No 'Breaking Loose' booklet given: 05/11/16 Hx Alcohol Use: No Drug/Substance Use Hx: No Substance Use Type: None Hx Substance Use Treatment: No <Taisha Rios - Last Filed: 09/21/16 14:11> <Georgina Hanna - Last Filed: 09/21/16 18:34> - Past Medical History Allergies/Adverse Reactions: Allergies Allergy/AdvReac Type Severity Reaction Status Date / Time No Known Drug Allergies Allergy Verified 09/21/16 12:29 PLASTIC TAPE Allergy "RASH,ITCHY Uncoded 09/21/16 12:29 " Home Medications: Ambulatory Orders Aspirin [ASA -] 81 mg PO DAILY 12/04/15 Omeprazole [Prilosec] 20 mg PO DAILY 12/04/15 Pravastatin Sodium [Pravachol -] 20 mg PO HS 12/04/15 Sevelamer Carbonate [Renvela -] 2,400 mg PO TID 12/04/15 Clopidogrel Bisulfate [Plavix -] 75 mg PO DAILY tablet 05/13/16 Metoprolol Succinate [Toprol XL -] 12.5 mg PO DAILY #30 tab.sr.24h 05/13/16 Review of Systems - Review of Systems Able to Perform ROS?: Yes Comments:: 09/21/16 13:49 GENERAL/CONSTITUTIONAL: No: fever, chills, weakness, loss of appetite. HEAD, EYES, EARS, NOSE AND THROAT: No: change in vision, ear pain, discharge, sore throat, throat swelling. CARDIOVASCULAR: No: chest pain, lightheadedness, palpitations, syncope RESPIRATORY: +cough, SOB. No: wheezing, hemoptysis, stridor. GASTROINTESTINAL: No: nausea, vomiting, abdominal cramping, diarrhea, rectal bleeding, constipation. GENITOURINARY: No: dysuria, hematuria, frequency, urgency, flank pain. MUSCULOSKELETAL: No: back pain, neck pain, joint pain, muscle swelling or pain SKIN: No: lesions, pallor, rash or easy bruising. NEUROLOGIC: No: headache, vertigo, paresthesias, weakness ENDOCRINE: No: unexplained weight gain or loss HEMATOLOGIC/LYMPHATIC: No: anemia, easy bleeding, swelling nodes <CelsabronwynGeorgina marie - Last Filed: 09/21/16 18:34> *Physical Exam - Vital Signs Last Vital Signs Temp Pulse Resp BP Pulse Ox 97.8 F 28 L 93 H 144/64 95 09/21/16 12:29 09/21/16 12:29 09/21/16 12:29 09/21/16 12:29 09/21/16 12:29 <GabrielTaisha - Last Filed: 09/21/16 14:11> - Vital Signs Last Vital Signs Temp Pulse Resp BP Pulse Ox 97.8 F 81 93 H 144/64 99 09/21/16 12:29 09/21/16 12:48 09/21/16 12:29 09/21/16 12:29 09/21/16 12:48 - Physical Exam Comments: 09/21/16 13:49 GENERAL: The patient is in no acute distress. HEAD: Normal with no signs of trauma. EYES: PERRLA, EOMI, sclera anicteric, conjunctiva clear. ENT: Ears normal, nares patent, oropharynx clear without exudates. Moist mucous membranes. NECK: Normal range of motion, supple without lymphadenopathy, JVD, or masses. LUNGS: Faint expiratory wheeze in left lower lobe. Decreased breath sounds. No crackles. HEART:Regular rate and rhythm, 3 out of 6 systolic ejection murmur, No rubs or gallop. CHEST: Left breast mastectomy. Radiation changes. ABDOMEN: Soft, nontender, normoactive bowel sounds. No guarding, no rebound. EXTREMITIES: Normal range of motion, no edema. No clubbing or cyanosis. No erythema, or tenderness. NEUROLOGICAL: Cranial nerves II through XII grossly intact. Normal speech. No focal neurological deficits. MUSCULOSKELETAL: Back nontender to palpation, no CVA tenderness SKIN: Warm, Dry, normal turgor, no rashes or lesions noted. <CyndiGeorgina - Last Filed: 09/21/16 18:34> Heart Score/ECG Review #1 ECG reviewed & interpreted by me at: 13:02 09/21/16 13:02 Twelve-lead EKG was performed and reviewed by me. There is normal sinus rhythm with a normal rate of 82 bpm. The axis is normal. The intervals are normal - pr: 148ms, QRS:104ms, QTc:42ms. There are no ST elevations. T wave inversion I, II , III, AVF, v4-v6 <Taisha Rios - Last Filed: 09/21/16 14:11> ED Treatment Course - LABORATORY CBC & Chemistry Diagram: 09/21/16 12:51 09/21/16 12:51 <Taisha Rios - Last Filed: 09/21/16 14:11> - LABORATORY CBC & Chemistry Diagram: 09/21/16 12:51 09/21/16 12:51 - ADDITIONAL ORDERS Additional order review: 09/21/16 12:51 RBC 3.22 L MCV 110.0 H MCHC 32.4 RDW 18.1 H MPV 8.0 Neutrophils % 82.1 Lymphocytes % 12.5 Monocytes % 3.5 L Eosinophils % 0.6 Basophils % 1.3 - RADIOLOGY Radiograph Interpretation: 09/21/16 13:54 EXAM#: TYPE/EXAM: RESULT: [id number] RAD/CHEST X-RAY PORTABLE* Shortness of breath. Single portable chest x-ray. Comparison study May 11, 2016. Cardiomegaly. Sternal wires. Calcified aortic arch. No evidence of widening of the superior mediastinum. No evidence of vascular congestion, moderate consolidation atelectasis. No pleural effusion, or pneumothorax is seen. Intact visualized osseous structures. Impression. No evidence of active disease. Reported By: Forest Jenkins MD 09/21/16 1329 <Georgina Hanna - Last Filed: 09/21/16 18:34> Medical Decision Making - Medical Decision Making 09/21/16 12:48 A portion of this note was documented by scribe services under my direction. I have reviewed the details of the note, within reason, and agree with the documentation with the following case summary and management plan written by me. Nursing documentation reviewed and incorporated into medical decision making 09/21/16 12:57 61 yo F h/o HTN, HLD, ESRD on HD (dialyzed Tuesday, , Tuesday) Last dialysis was [facility] Weight after dialysis 102.6 (Dry weight 103.3) Pt denies taking excessive salt She has had a cough with sputum, unchanged from prior No fevers or chills No chest pain Pt had left upper back pain which has been present since her mastectomy Presents to the ER with son via EMS due to shortness of breath pt unable to lay flat because she feels that she is drowning Pt has had to use her supplemental O2 According to patient son, she has a new cough He does not believe she is fluid overloaded Will do labs Will do portable cxr EKG Will re assess Pt needs dialysis 09/21/16 13:25 Laboratory Tests 09/21/16 12:51 WBC 6.0 D Hgb 11.5 D Hct 35.4 D Plt Count 205 D Laboratory Tests 09/21/16 12:51 Sodium 136 Potassium 6.1 H* Chloride 97 L Carbon Dioxide 24 BUN 80 H Creatinine 11.0 H* Random Glucose 91 D Creatine Kinase 37 Troponin I 0.04 B-Natriuretic Peptide 56943.64 H 09/21/16 14:[address] Piper Pt can be discharged to her dialysis center She requested that I contact them to be sure that they can take her I have contacted them - [phone] THey state patient should be sent to dialysis now I have explained this to the patient She is upset about this Requesting that she be admitted and have dialysis here I have contacted Dr Piper She states, pt should be sent to dialysis Pt son will pick her up Pt requesting food Will discharge to go to dialysis with son I have had a long conversation with this patient If she feels any new symptoms despite dialysis, she should return to the ER 09/21/16 14:10 <Taisha Rios - Last Filed: 09/21/16 14:11> - Medical Decision Making 09/21/16 18:33 Dr. Piper was called via office phone at 1:50pm. Dr. Piper was connected and spoke with her regarding the patient's care. <Georgina Hanna - Last Filed: 09/21/16 18:34> *DC/Admit/Observation/Transfer - Discharge Dispostion Admit: No <Taisha Rios - Last Filed: 09/21/16 14:11> - Attestations Scribe Attestion: 09/21/16 13:50 Documentation prepared by AMI Alejandro, acting as infertility medical assistant for Taisha Rios MD. <Georgina Hanna - Last Filed: 09/21/16 18:34> Diagnosis at time of Disposition: SOB (shortness of breath) - Discharge Dispostion Disposition: HOME Condition at time of disposition: Stable - Referrals Referrals: aSndoval Brown MD [Primary Care Provider] - Ania Piper MD [Staff Physician] - - Patient Instructions Printed Discharge Instructions: DI for Dialysis Additional Instructions: Return to the emergency department immediately with ANY new, persistent or worsening symptoms. Continue any medications as previously prescribed by your physician. You should follow up with your primary doctor as soon as possible regarding today's emergency department visit. . Please make sure your doctor reviews the results of your emergency evaluation. Thank you for coming to the Emergency Department today for your care. It was a pleasure to see you today. Please note that your evaluation is INCOMPLETE until you follow-up with your doctor.
[2016-09-21 12:57] LABS: BASOPHIL 1.3 % (0-2.0); EOSINOPHIL 0.6 % (0-4.5); MCH 35.6 pg (25.7-33.7); MCHC 32.4 g/dl (32.0-36.0); NEUTROPHILS 82.1 % (42.8-82.8); PLATELET COUNT 205 K/MM3 (134-434); RDW 18.1 % (11.6-15.6)
[2016-09-21 13:26] LABS: ALBUMIN 3.5 g/dl (3.4-5.0); BILIRUBIN,TOTAL 0.4 mg/dL (0.2-1.0); CALCIUM 8.9 mg/dL (8.5-10.1); TOT PROT 7.1 g/dl (6.4-8.2)
[2016-09-21 13:41] LABS: COCKROFT - GAULT 8.5; TROPONIN I 0.04 ng/ml (0.00-0.05)
[2016-09-21 14:20] VITALS: BP 159/59; PULSE 83
--- NOTE | 2016-09-22 12:34 | EKG ---
Test Reason : Blood Pressure : / mmHG Vent. Rate : 082 BPM Atrial Rate : 082 BPM P-R Int : 148 ms QRS Dur : 104 ms QT Int : 364 ms P-R-T Axes : -18 049 228 degrees QTc Int : 425 ms NORMAL SINUS RHYTHM ABNORMAL ECG WHEN COMPARED WITH ECG OF 11-MAY-2016 05:55, SINUS RHYTHM HAS REPLACED JUNCTIONAL RHYTHM Confirmed by FREIDA AREVALO MD ([id number]) on 09/22/2016 12:33:36 PM Referred By: Confirmed By:FREIDA AREVALO MD
== END | disposition home or self-care (01) ==
LOC: JER 12:20
DX: R06.02 Shortness of breath (principal); I25.10 Atherosclerotic heart disease of native coronary artery without angina pectoris; I13.2 Hypertensive heart and chronic kidney disease with heart failure and with stage 5 chronic kidney disease, or end stage renal disease; N18.6 End stage renal disease; I50.9 Heart failure, unspecified; Z99.2 Dependence on renal dialysis; Z95.1 Presence of aortocoronary bypass graft; Z95.5 Presence of coronary angioplasty implant and graft; I25.2 Old myocardial infarction; I48.91 Unspecified atrial fibrillation; Z79.01 Long term (current) use of anticoagulants; I35.0 Nonrheumatic aortic (valve) stenosis; F41.9 Anxiety disorder, unspecified; K21.9 Gastro-esophageal reflux disease without esophagitis; J45.909 Unspecified asthma, uncomplicated; Z85.3 Personal history of malignant neoplasm of breast; Z90.12 Acquired absence of left breast and nipple
CPT/HCPCS: 36415; 71010-TC; 80053; 82550; 83880; 84484; 85025; 93005; 93010; 99284-25

== ENCOUNTER 2017-01-13 13:19 | Inpatient (IN) | payer OTHER ==
--- NOTE | 2017-01-13 13:41 | PDOC ---
History of Present Illness - General Stated Complaint: DIFF BREATHING Time Seen by Provider: 01/13/17 13:39 Past History - Past Medical History Allergies/Adverse Reactions: Allergies Allergy/AdvReac Type Severity Reaction Status Date / Time No Known Drug Allergies Allergy Verified 09/21/16 12:29 PLASTIC TAPE Allergy "RASH,ITCHY Uncoded 09/21/16 12:29 " Home Medications: Ambulatory Orders Aspirin [ASA -] 81 mg PO DAILY 12/04/15 Omeprazole [Prilosec] 20 mg PO DAILY 12/04/15 Pravastatin Sodium [Pravachol -] 20 mg PO HS 12/04/15 Sevelamer Carbonate [Renvela -] 2,400 mg PO TID 12/04/15 Clopidogrel Bisulfate [Plavix -] 75 mg PO DAILY tablet 05/13/16 Metoprolol Succinate [Toprol XL -] 12.5 mg PO DAILY #30 tab.sr.24h 05/13/16 Anemia: Yes Asthma: Yes Cancer: No Cardiac Disorders: Yes (BYPASS SX X3, 3STENTS) CVA: No COPD: Yes CHF: No Dementia: No Diabetes: No Dialysis: Yes (tues, thurs, sat) GI Disorders: Yes (gerd) Disorders: Yes (esrd) HTN: Yes Hypercholesterolemia: Yes Liver Disease: No Seizures: No Thyroid Disease: No - Surgical History Abdominal Surgery: No Cardiac Surgery: Yes (BYPASS SX X3 stent x 3) Cholecystectomy: Yes Lung Surgery: No Neurologic Surgery: No - Immunization History Immunization Up to Date: Yes (FLU AND PNA 2012-) - Suicide/Smoking/Psychosocial Hx Smoking Status: Yes Smoking History: Former smoker Years of Tobacco Use: 40 Have you smoked in the past 12 months: Yes Number of Cigarettes Smoked Daily: 20 If you are a former smoker, when did you quit?: 4 MONTHS AGO 'Breaking Loose' booklet given: 05/11/16 Hx Alcohol Use: No Drug/Substance Use Hx: No Substance Use Type: None Hx Substance Use Treatment: No
--- NOTE | 2017-01-13 13:44 | PDOC ---
Attending Attestation - HPI HPI: 01/13/17 14:25 Pt is a 61 yo F with a PMHx of end stage renal disease (dialysis Tues, Thurs, Sat), breast cancer (s/p left breast mastectomy 01/2017), HTN, [place] (s/p CABG - triple bypass, 2 stents), A-fib, aortic stenosis, CHF, GI bleed, and anxiety who presents to the ED with cough for the past 2 days. Patient complains of diffuse body aches, generalized weakness and chills. Patient reports sick contact with her grand daughter. Note, patient missed HD today. PCP: Dr. Sandoval Brown Associate Software Development Engineer: Dr. Piper Diecast Machine Operator: Dr. Cartwright - Physicial Exam PE: 01/13/17 14:25 GENERAL: Awake, alert, and fully oriented, in no acute distress HEAD: No signs of trauma EYES: PERRLA, EOMI, sclera anicteric, conjunctiva clear ENT: Auricles normal inspection, hearing grossly normal, nares patent, oropharynx clear without exudates. Moist mucosa NECK: Normal ROM, supple, no lymphadenopathy, JVD, or masses LUNGS: + wheezing. Breath sounds equal, clear to auscultation bilaterally. No crackles HEART: Regular rate and rhythm, normal S1 and S2, no murmurs, rubs or gallops ABDOMEN: +obese. Soft, nontender, normoactive bowel sounds. No guarding, no rebound. No masses EXTREMITIES: +LUE AV Fistula with bruit and thrill. +legs are thin Normal range of motion, no edema. No clubbing or cyanosis. No cords, erythema, or tenderness NEUROLOGICAL: Cranial nerves II through XII grossly intact. Normal speech, normal gait SKIN: Warm, Dry, normal turgor, no rashes or lesions noted. - Medical Decision Making 01/13/17 14:25 01/13/17 16:15-- Call placed to Dr. Philip 01/13/17 16:19-- Second call placed to Dr. Philip 01/13/17 16:20-- Dr. Philip responded ot the page and the patients case was discussed. Patient admitted under Maria Luisa Philip's service Documentation prepared by Rhonda Lambert, acting as diploma medical assistant for Deborah Handy DO <Rhonda Lambert - Last Filed: 01/13/17 16:19> - Resident Resident Name: Luan Strauss - ED Attending Attestation I have performed the following: I have examined & evaluated the patient, The case was reviewed & discussed with the resident, I agree w/resident's findings & plan, Exceptions are as noted - Medical Decision Making 01/13/17 13:43 I, Dr. Deborah Handy, DO, attest that this document has been prepared under my direction and personally reviewed by me in its entirety. I further attest, that it accurately reflects all work, treatment, procedures and medical decision -making performed by me. 01/13/17 14:16 a/p: 61yo female with cough/congestion - did miss HD today -wheezing on exam -labs -xray -concern for flu vs pna vs volume overload -cxr -ekg -reassess 01/13/17 14:18 states dry weight 103kg, currently 98kg 01/13/17 14:18 Dr. Piper at the bedside to see the patient. 01/13/17 16:[address] Piper who wants to do HD today 01/13/17 16:[address] Philip for admission 01/13/17 16:[address] Philip who accepts pt to service. <Deborah Handy - Last Filed: 01/13/17 16:23> Discharge Disposition <FaustoRhnoda - Last Filed: 01/13/17 16:19> - Discharge Dispostion Last Admission D/C Date: 05/13/16 Admit: Yes <Deborah Handy - Last Filed: 01/13/17 16:23> - Diagnosis ESRD (end stage renal disease) on dialysis, Shortness of breath at rest - Discharge Dispostion Condition at time of disposition: Fair - Referrals Referrals: Sandoval Brown MD [Primary Care Provider] - Heart Score/ECG Review - ECG Intrepretation Comment:: 01/13/17 14:17 sinus at 79, nl axis, nl interval, t wave inversions inferior/lateral - unchanged from prior <Deborah Handy - Last Filed: 01/13/17 16:23>
--- NOTE | 2017-01-13 14:14 | PDOC ---
History of Present Illness - General Chief Complaint: Respiratory Stated Complaint: DIFF BREATHING Time Seen by Provider: 01/13/17 13:39 History Source: Patient Exam Limitations: No Limitations - History of Present Illness Initial Comments: 01/13/17 14:08 Patient is a 61F with history of ESRD, CHF, CAD, SC s/p stenting, Breast cancer (s/p left sided mastectomy 03/03, radiation therapy and hormonal inhibition), and asthma here today complaining of a dry cough for the past two days. She says specifically that this does not feel like the other times that she's been fluid overloaded. She says that her granddaughter was sick a few days before she was. She's also complaining of diffuse muscle aches in her back , arms and legs. She denies fevers, nausea and vomiting, but endorses chills. She denies chest pain, shortness of breath, abdominal pain and increased leg swelling. She's never had a blood clot in the past. Past History - Past Medical History Allergies/Adverse Reactions: Allergies Allergy/AdvReac Type Severity Reaction Status Date / Time No Known Drug Allergies Allergy Verified 01/13/17 13:42 PLASTIC TAPE Allergy "RASH,ITCHY Uncoded 01/13/17 14:37 " Home Medications: Ambulatory Orders Aspirin [ASA -] 81 mg PO DAILY 12/04/15 Omeprazole [Prilosec] 20 mg PO DAILY 12/04/15 Pravastatin Sodium [Pravachol -] 20 mg PO HS 12/04/15 Sevelamer Carbonate [Renvela -] 2,400 mg PO TID 12/04/15 Clopidogrel Bisulfate [Plavix -] 75 mg PO DAILY tablet 05/13/16 Metoprolol Succinate [Toprol XL -] 12.5 mg PO DAILY #30 tab.sr.24h 05/13/16 Anemia: Yes Asthma: Yes Cancer: No Cardiac Disorders: Yes (BYPASS SX X3, 3STENTS) CVA: No COPD: Yes CHF: No Dementia: No Diabetes: No Dialysis: Yes (tues, thurs, sat) GI Disorders: Yes (gerd) Disorders: Yes (esrd) HTN: Yes Hypercholesterolemia: Yes Liver Disease: No Seizures: No Thyroid Disease: No - Surgical History Abdominal Surgery: No Cardiac Surgery: Yes (BYPASS SX X3 stent x 3) Cholecystectomy: Yes Lung Surgery: No Neurologic Surgery: No - Immunization History Immunization Up to Date: Yes (FLU AND PNA 2012-) - Suicide/Smoking/Psychosocial Hx Smoking Status: Yes Smoking History: Unknown if ever smoked Years of Tobacco Use: 40 Have you smoked in the past 12 months: Yes Number of Cigarettes Smoked Daily: 20 If you are a former smoker, when did you quit?: 4 MONTHS AGO 'Breaking Loose' booklet given: 05/11/16 Hx Alcohol Use: No Drug/Substance Use Hx: No Substance Use Type: None Hx Substance Use Treatment: No Review of Systems - Review of Systems Comments:: 01/13/17 14:12 GENERAL/CONSTITUTIONAL: Positive for chills. Negative for fever. HEAD, EYES, EARS, NOSE AND THROAT: No change in vision. Positive for sore throat. CARDIOVASCULAR: No chest pain. Positive for shortness of breath. RESPIRATORY: Positive for cough. Negative for wheezing, or hemoptysis. GASTROINTESTINAL: No nausea, vomiting, diarrhea or constipation. GENITOURINARY: No dysuria, frequency, or change in urination. MUSCULOSKELETAL: Positive for aches in arms, shoulders, legs and back. SKIN: No rash NEUROLOGIC: Positive for headache. Negative for vertigo, loss of consciousness, or change in strength/sensation. ENDOCRINE: No increased thirst. No abnormal weight change HEMATOLOGIC/LYMPHATIC: No anemia, easy bleeding, or history of blood clots. ALLERGIC/IMMUNOLOGIC: No hives or skin allergy. *Physical Exam - Vital Signs Last Vital Signs Temp Pulse Resp BP Pulse Ox 98.7 F 80 18 132/75 99 01/13/17 13:20 01/13/17 13:20 01/13/17 13:20 01/13/17 13:20 01/13/17 13:20 - Physical Exam Comments: 01/13/17 14:13 GENERAL: Awake, alert, and fully oriented, in no acute distress HEAD: No signs of trauma, normocephalic, atraumatic EYES: PERRLA, EOMI, sclera anicteric, conjunctiva clear ENT: Auricles normal inspection, hearing grossly normal, nares patent, oropharynx clear without exudates. Moist mucosa NECK: Normal ROM, supple, no lymphadenopathy, JVD, or masses LUNGS: No distress, speaks full sentences, scattered wheezes in lower lung [place] HEART: Regular rate and rhythm, normal S1 and S2, no murmurs, rubs or gallops, peripheral pulses normal and equal bilaterally. ABDOMEN: Soft, nontender, normoactive bowel sounds. No guarding, no rebound. No masses EXTREMITIES: Normal inspection, Normal range of motion, no edema. No clubbing or cyanosis. NEUROLOGICAL: Cranial nerves II through XII grossly intact. Normal speech, normal gait, no focal sensorimotor deficits SKIN: Warm, Dry, normal turgor, no rashes or lesions noted. ED Treatment Course - LABORATORY CBC & Chemistry Diagram: 01/13/17 14:00 01/13/17 14:00 Medical Decision Making - Medical Decision Making 01/13/17 14:14 61F with history of ESRD, CHF, CAD s/p stenting, SC, HTN, and breast ca here today complaining of dry cough. Vital signs stable. Positive sick contact. Flu shot a week ago, but would not be effective yet. Will evaluate with ekg, labs, cxr and flu swab. Believe that this is mostly likely a viral infection. Refusing cardiac monitoring due to skin sensitivity to adhesive. Placed on SpO2 monitoring. ECG shows normal sinus rhythm, normal axis, normal rate. Inverted t-waves are in I, II, III, aVL, aVF, V3-V6. Unchanged from prior EKGs. 01/13/17 15:23 Laboratory Tests 01/13/17 01/13/17 14:00 14:00 WBC 5.1 Hgb 11.4 Hct 35.6 Plt Count 216 Potassium 5.3 H BUN 40 H D Creatinine 8.2 H* D Random Glucose 117 H D B-Natriuretic Peptide 00653.27 H CBC normal. K 5.3, Cr 8.2, BNP of 87k, but exam is not consistent with heart failure or fluid overload. 01/13/17 15:57 CXR shows no acute cardiopulmonary process. Shows stable cardiac enlargement. Will admit to [facility] for SOB. Patient requires HD after missing her session.. *DC/Admit/Observation/Transfer Diagnosis at time of Disposition: ESRD (end stage renal disease) on dialysis, Shortness of breath at rest - Discharge Dispostion Disposition: HOME Condition at time of disposition: Fair Admit: No
[2017-01-13] MEDS ORDERED: ALBUTEROL SO4 2.5/IPRATROPIUM 0.5 INH SOL 3 ML VIAL.NEB. NEB ONE ×2 (14:17→14:23)
[2017-01-13 14:30] LABS: BASOPHIL 0.8 % (0-2.0); EOSINOPHIL 0.3 % (0-4.5); MCH 33.7 pg (25.7-33.7); MEAN CELL VOLUME 105.3 fl (80-96); MEAN PLT VOLUME 8.2 fl (7.5-11.1); PLATELET COUNT 216 K/MM3 (134-434); RDW 16.8 % (11.6-15.6); WHITE BLOOD COUNT 5.1 K/mm3 (4.0-10.0)
[2017-01-13 14:43] LABS: INR 1.2 (0.82-1.09); PROTHROMBIN TIME (PATIENT) 13.2 SEC (9.98-11.88)
--- NOTE | 2017-01-13 14:46 | CON.NEP ---
Consult Consult Specialty:: NEPHROLOGY Referred by:: ER Reason for Consultation:: ESRD - History of Present Illness Chief Complaint: SOB FOR 2 DAYS History of Present Illness: 61 WITH CAD LV DYSF RECENT LEFT MASTECTOMY RT END OF 2015 SICK SINCE TUESDAY ACTIVE SMOKER 6 CIG /DAY COUGH WHITE PHLEGM NO FEVER ACHY DENIES RUNNY NOSE FLU SHOT LAST WEEK - History Source History Provided By: Patient - Past Medical History Cardio/Vascular: Yes: AFIB, Aortic Stenosis, CAD, CHF, HTN, Hyperlipdemia, MS, Pulmonary Hypertension Pulmonary: Yes: Asthma, COPD Gastrointestinal: Yes: GI Bleed (colitis, requiring transfusions), Other ( COLITIS ) Renal/: Yes: Renal Failure, Hemodialysis ...LMP: 12/11/10 Psych: Yes: Anxiety - Past Surgical History Past Surgical History: Yes: AV Fistula/Graft, CABG, Cholecystectomy, Stent - Alcohol/Substance Use Hx Alcohol Use: No - Smoking History Smoking history: Current every day smoker Have you smoked in the past 12 months: Yes Aproximately how many cigarettes per day: 20 If you are a former smoker, when did you quit?: 4 MONTHS AGO - Social History Usual Living Arrangement: Other (daughter is here for 5 days and then sister is arriving on tues from [facility]) ADL: Independent History of Recent Travel: No Home Medications - Allergies Allergies/Adverse Reactions: Allergies Allergy/AdvReac Type Severity Reaction Status Date / Time No Known Drug Allergies Allergy Verified 01/13/17 13:42 PLASTIC TAPE Allergy "RASH,ITCHY Uncoded 01/13/17 14:37 " - Home Medications Home Medications: Ambulatory Orders Aspirin [ASA -] 81 mg PO DAILY 12/04/15 Omeprazole [Prilosec] 20 mg PO DAILY 12/04/15 Pravastatin Sodium [Pravachol -] 20 mg PO HS 12/04/15 Sevelamer Carbonate [Renvela -] 2,400 mg PO TID 12/04/15 Clopidogrel Bisulfate [Plavix -] 75 mg PO DAILY tablet 05/13/16 Metoprolol Succinate [Toprol XL -] 12.5 mg PO DAILY #30 tab.sr.24h 05/13/16 Review of Systems Unable to obtain ROS, reason: FEELS VERY ILL CRYING Nephrology Consult - Height Height: 5 ft 5 in - Weight Weight: 217 lb 2.485 oz - BMI Body Mass Index (BMI): 36.1 - Lab Results CBC,BMP: CBC, BMP 01/13/17 14:00 - Imaging Chest X-ray: Image Reviewed - Physical Examination Vital Signs: Vital Signs Temperature 98.7 F 01/13/17 13:20 Pulse Rate 80 01/13/17 13:20 Respiratory Rate 18 01/13/17 13:20 Blood Pressure 132/75 01/13/17 13:20 O2 Sat by Pulse Oximetry (%) 99 01/13/17 13:20 Constitutional: Yes: Anxious Respiratory: Yes: Wheezes Access for Hemodialysis: AV Fistula Edema: No Assessment/Plan 61 WITH ESRD HERE WITH FEELING ILL ACHY NO FEVER SATS OK SOUNDS WHEEZY R/O FLU NEEDS NEBS NO FLUIDS PLEASE DIET 2GM NA 2GM K 1 L FLUID RESTRICTION WILL DIALYZE TODAY FOLLOW CHEM BP RUNS LOW MEDS REVIEWED
[2017-01-13 14:55] LABS: ALBUMIN 3.3 g/dl (3.4-5.0); ANION GAP 14 (8-16); BILIRUBIN,TOTAL 0.4 mg/dL (0.2-1.0); CALCIUM 7.7 mg/dL (8.5-10.1); CO2 28 mmol/L (21-32); GLUCOSE,RANDOM 117 mg/dL (74-106); SGOT/AST 11 U/L (15-37); SGPT/ALT 11 U/L (12-78); TOT PROT 7.1 g/dl (6.4-8.2)
[2017-01-13 15:10] LABS: ALK PHOS 304 U/L (45-117); CPK 52 IU/L (26-192); TROPONIN I 0.03 ng/ml (0.00-0.05)
[2017-01-13 15:15] LABS: CREATININE 8.2 mg/dL (0.55-1.02)
--- NOTE | 2017-01-13 15:53 | EKG ---
Test Reason : Blood Pressure : / mmHG Vent. Rate : 079 BPM Atrial Rate : 079 BPM P-R Int : 144 ms QRS Dur : 102 ms QT Int : 392 ms P-R-T Axes : 006 048 212 degrees QTc Int : 449 ms NORMAL SINUS RHYTHM CANNOT RULE OUT INFERIOR INFARCT , AGE UNDETERMINED ABNORMAL ECG WHEN COMPARED WITH ECG OF 21-SEP-2016 12:34, NO SIGNIFICANT CHANGE WAS FOUND Confirmed by MARIVEL LOWRY MD ([id number]) on 01/13/2017 3:53:36 PM Referred By: Confirmed By:MARVIEL LOWRY MD
[2017-01-13] MEDS ORDERED: ACETAMINOPHEN 325 MG TABLET (FP) PO ONE (23:00)
--- NOTE | 2017-01-13 23:26 | HP ---
Admitting History and Physical - Admission History of Present Illness: Pt is a 61 morbidly obese female w/ PMH significant for ESRD on dialysis, CAD, AFIB, CHF, HTN, HLD, NM, , asthma, GIB and anxiety. Pt states that for the past 3-4 days she has been haivng URI symptoms. She has a productive cough w/ clear mucous production and generalized bodyaches. Pt thinks she has had a temp but in the ER she was afebrile w/ normal WBC. Pt missed her dialysis appointment. Pt denies any SOB and no wheezing. CXR done in er did not show any acute pathology. - Past Medical History Cardiovascular: Yes: AFIB, Aortic Stenosis, CAD, CHF, HTN, Hyperlipdemia, NM, Pulmonary Hypertension Pulmonary: Yes: Asthma, COPD Gastrointestinal: Yes: GI Bleed (colitis, requiring transfusions), Other ( COLITIS ) Renal/: Yes: Renal Failure, Hemodialysis ...LMP: 12/11/10 Heme/Onc: Yes: Cancer (Recently diagnoses breast Cancer) Psych: Yes: Anxiety - Past Surgical History Past Surgical History: Yes: AV Fistula/Graft, CABG, Cholecystectomy, Stent - Smoking History Smoking history: Unknown if ever smoked Have you smoked in the past 12 months: Yes Aproximately how many cigarettes per day: 20 If you are a former smoker, when did you quit?: 4 MONTHS AGO - Alcohol/Substance Use Hx Alcohol Use: No - Social History ADL: Independent History of Recent Travel: No Home Medications - Allergies Allergies/Adverse Reactions: Allergies Allergy/AdvReac Type Severity Reaction Status Date / Time No Known Drug Allergies Allergy Verified 01/13/17 13:42 PLASTIC TAPE Allergy "RASH,ITCHY Uncoded 01/13/17 14:37 " - Home Medications Home Medications: Ambulatory Orders Aspirin [ASA -] 81 mg PO DAILY 12/04/15 Pravastatin Sodium [Pravachol -] 40 mg PO HS 12/04/15 Sevelamer Carbonate [Renvela -] 2,400 mg PO TID 12/04/15 Clopidogrel Bisulfate [Plavix -] 75 mg PO DAILY tablet 05/13/16 Anastrozole [Arimidex -] 1 mg PO HS 01/13/17 Cinacalcet HCl [Sensipar] 60 mg PO DAILY 01/13/17 Folic Acid/Vit Bcomp,C [Alysa-Alexandria Tablet] 0.8 mg PO DAILY 01/13/17 Metoprolol Succinate [Toprol XL -] 12.5 mg PO HS 01/13/17 Pantoprazole Sodium [Protonix] 40 mg PO DAILY 01/13/17 Family Disease History - Family Disease History Family History: Unremarkable Review of Systems - Review of Systems Constitutional: reports: Fever, Loss of Appetite, Malaise, Weakness HENT: reports: No Symptoms Neck: reports: No Symptoms Cardiovascular: reports: No Symptoms Respiratory: reports: Cough Gastrointestinal: reports: No Symptoms Physical Examination Vital Signs: Vital Signs Temperature 98.4 F 01/13/17 17:10 Pulse Rate 72 01/13/17 20:39 Respiratory Rate 18 01/13/17 20:39 Blood Pressure 132/58 01/13/17 20:39 O2 Sat by Pulse Oximetry (%) 99 01/13/17 16:10 Constitutional: Yes: Well Nourished Neck: Yes: WNL, Supple Cardiovascular: Yes: WNL, Regular Rate and Rhythm Respiratory: Yes: Diminished, Wheezes Gastrointestinal: Yes: WNL, Normal Bowel Sounds, Soft Problem List - Problems (1) Asthma exacerbation Assessment/Plan: Cont IV ceftriaxone/nebulizers Will add steroids Pulmonary consult Code(s): J45.901 - UNSPECIFIED ASTHMA WITH (ACUTE) EXACERBATION (2) ESRD (end stage renal disease) on dialysis Assessment/Plan: Pt received dialysis today As per renal Monitor electrolytes Code(s): N18.6 - END STAGE RENAL DISEASE Z99.2 - DEPENDENCE ON RENAL DIALYSIS (3) Chronic combined systolic (congestive) and diastolic (congestive) heart failure Assessment/Plan: BNP elevated >89,000 Check echo Cardio consult Code(s): I50.42 - CHRONIC COMBINED SYSTOLIC AND DIASTOLIC HRT FAIL (4) HTN (hypertension) Assessment/Plan: Cont toprol BP stable Code(s): I10 - ESSENTIAL (PRIMARY) HYPERTENSION (5) CAD (coronary artery disease) Assessment/Plan: Cont plavix Code(s): I25.10 - ATHSCL HEART DISEASE OF [place] CORONARY ARTERY W/O ANG PCTRS (6) HLD (hyperlipidemia) Assessment/Plan: Cont pravachol Code(s): E78.5 - HYPERLIPIDEMIA, UNSPECIFIED (7) Hx of CABG Code(s): Z95.1 - PRESENCE OF AORTOCORONARY BYPASS GRAFT (8) Panic anxiety syndrome Code(s): F41.0 - PANIC DISORDER WITHOUT AGORAPHOBIA (9) Aortic stenosis Code(s): I35.0 - NONRHEUMATIC AORTIC (VALVE) STENOSIS (10) Atrial fibrillation Assessment/Plan: Pt is in NSR Code(s): I48.91 - UNSPECIFIED ATRIAL FIBRILLATION Qualifiers: Atrial fibrillation type: paroxysmal Qualified Code(s): I48.0 - Paroxysmal atrial fibrillation
[2017-01-13] MEDS: METOPROLOL SUCCINATE 25 MG TAB.SR.24H (FP) PO SCH (23:52)
[2017-01-14] MEDS: oxyCODONE HCL 5 MG TABLET PO PRN ×3 (00:03→21:29)
[2017-01-14] MEDS: ACETAMINOPHEN 325 MG TABLET (FP) PO PRN ×3 (00:04→21:30)
[2017-01-14 01:52] VITALS: BMI 31.8
[2017-01-14] MEDS: methylPREDNISolone NA SUCC 40 MG/1 ML VIAL IVPB SCH ×3 (02:55→18:49)
[2017-01-14] MEDS: SEVELAMER CARBONATE 800 MG TAB (FP) PO SCH ×3 (08:24→17:35)
--- NOTE | 2017-01-14 08:45 | CON.CARD ---
Cardiology Consult (text) - Consultation Consultation Note: Cardiology Follow up/Consult: frequent admissions 1. Chronic COPD 2. ESRD 3. CAD s/p CABG, PCI 11/2015 at [facility] 4. Chronic Diastolic CHF 5. Aortic stenosis, moderate 6. Moderate to severe bilateral carotid stenosis 7. PAF 8. History of GI bleed 9. Breast CA s/p lumpectomy, completed XRT now on hormonal Rx. 10. Anxiety HPI: Now presents with several days of dry cough and associated chest tightness. No fever or chills. No anginal sx. Denies palps. No edema. No syncope. No PND or weight gain. Was given IV steroids w/ improvement. ALL: adhesive tape MEDS: reviewed in EMR FH: non contributory SH: still smoking 3-5 cigs per day DATA: Laboratory Tests ECG: NSR 79bpm, LVH, diffuse NSST changes CXR: cardiomegaly, no evidence of CHF Cultures pending, flu negative 01/13/17 01/13/17 01/13/17 14:00 14:00 14:00 WBC 5.1 Hgb 11.4 Plt Count 216 INR 1.20 H Sodium 135 L Potassium 5.3 H Creatinine 8.2 H* D Troponin I 0.03 B-Natriuretic Peptide 81696.27 H Exam: Selected Entries 01/13/17 01/14/17 21:00 08:39 Temperature 97.9 F Pulse Rate 74 Blood Pressure 141/60 O2 Sat by Pulse 98 Oximetry (%) Oxygen Delivery Room Air Method CV: S1, 2. RRR. 2/6 IRISH RSB c/w moderate Chest: decreased breath sounds - chronic COPD, no active wheezing or rales Abd: obese, NT Ext: no edema IMP/PlAN: Acute exacerbation COPD/bronchitis ESRD Moderate History of CAD and PAF REC: -steroid taper/nebs/supp O2 as per PMD -HD -presently stable from CV standpoint: to continue ASA and metoprolol. Not a candidate for full AC (PAF) due to prior h/o severe GI bleed requiring multiple transfusions. Possible d/c over weekend if continued clinical improvement.
[2017-01-14] MEDS ORDERED: cefTRIAXone SODIUM 1 GM VIAL ONE (10:04)
[2017-01-14] MEDS ORDERED: DEXTROSE 5%-WATER - 50 ML IVPB ONE (10:04)
[2017-01-14] MEDS: ASPIRIN 81 MG CHEWABLE TABLETS PO SCH (10:10)
[2017-01-14] MEDS: VITAMIN B COMP W-C 1 EA TABLET PO SCH (10:10)
[2017-01-14] MEDS: CLOPIDOGREL BISULFATE 75 MG TABLET (FP) PO SCH (10:10)
[2017-01-14] MEDS: PANTOPRAZOLE 40 MG TABLET (FP) PO SCH (10:10)
[2017-01-14] MEDS: CINACALCET HCL 30 MG TAB (FP) PO SCH (10:11)
[2017-01-14] MEDS: CEFTRIAXONE 1 GM in DEXTROSE 5%-WATER - 50 ML IVPB SCH (10:12)
--- NOTE | 2017-01-14 16:51 | PN ---
Progress Note (short form) - Note Progress Note: RENAL DIALYZED YESTERDAY 2 KG REMOVED FLU NEG HAS AN ACUTE BRONCHITIS O/E WHEEZY EXT NO EDEMA ON SOLUMEDROL NEBS GOT IV CEFTRIAXONE YESTERDAY AND THIS AM NOW COMPLAINS OF FEELING IF THERES SWELLING INSIDE TONGUE NORMAL NO TONSILLAR ENLARGEMENT DOUBT THIS IS AN ABX REACTION WILL HAVE TO OBSERVE CAREFULLY AFTER THE ANTIOBIOTIC DOSE IN AM HD IN AM
[2017-01-14] MEDS ORDERED: PT OWN MED DRAWER 7, Y5N ONE (20:03)
[2017-01-14] MEDS: ANASTROZOLE 1 MG TABLET PO SCH (21:15)
[2017-01-14] MEDS: ATORVASTATIN CA 10 MG TABLET (FP) PO SCH (21:16)
[2017-01-14] MEDS: METOPROLOL SUCCINATE 25 MG TAB.SR.24H (FP) PO SCH (21:16)
[2017-01-14] MEDS ORDERED: PATIENT'S OWN MEDICATION (NON-FORMULARY) (Pravastatin Sodium 20 MG) PO SCH (22:00)
--- NOTE | 2017-01-14 22:00 | PN ---
Progress Note, Physician History of Present Illness: No new changes - Current Medication List Current Medications: Active Medications Acetaminophen (Tylenol -) 325 mg PO Q6H PRN PRN Reason: PAIN Last Admin: 01/14/17 21:30 Dose: 325 mg Albuterol/Ipratropium (Duoneb -) 1 amp NEB Q6H PRN PRN Reason: SHORTNESS OF BREATH Anastrozole (Arimidex -) 1 mg PO HS [facility] Last Admin: 01/14/17 21:15 Dose: 1 mg Aspirin (Asa -) 81 mg PO DAILY [facility] Last Admin: 01/14/17 10:10 Dose: 81 mg Atorvastatin Calcium (Lipitor -) 10 mg PO HS [facility] Last Admin: 01/14/17 21:16 Dose: 10 mg Cinacalcet (Sensipar -) 60 mg PO DAILY [facility] Last Admin: 01/14/17 10:11 Dose: 60 mg Clopidogrel Bisulfate (Plavix -) 75 mg PO DAILY [facility] Last Admin: 01/14/17 10:10 Dose: 75 mg Ceftriaxone Sodium 1 gm/ (Dextrose) 50 mls @ 100 mls/hr IVPB DAILY [facility] Last Admin: 01/14/17 10:12 Dose: 100 mls/hr Methylprednisolone Sodium Succinate (Solu-Medrol -) 40 mg IVPB Q8H-IV [facility] Last Admin: 01/14/17 18:49 Dose: 40 mg Metoprolol Succinate (Toprol Xl -) 12.5 mg PO HS [facility] Last Admin: 01/14/17 21:16 Dose: Not Given Multivit/Ca Carb/B Cmplx/FA/Prenat (Nephro-Alexandria -) 1 tablet PO DAILY [facility] Last Admin: 01/14/17 10:10 Dose: 1 tablet Oxycodone HCl (Roxicodone -) 5 mg PO Q6H PRN PRN Reason: PAIN 6-10 Last Admin: 01/14/17 21:29 Dose: 5 mg Pantoprazole Sodium (Protonix -) 40 mg PO DAILY [facility] Last Admin: 01/14/17 10:10 Dose: 40 mg Sevelamer Carbonate (Renvela -) 2,400 mg PO TIDCM [facility] Last Admin: 01/14/17 17:35 Dose: 2,400 mg - Objective Vital Signs: Vital Signs Temperature 98.0 F 01/14/17 18:00 Pulse Rate 71 01/14/17 18:00 Respiratory Rate 18 01/14/17 21:00 Blood Pressure 141/60 01/14/17 18:00 O2 Sat by Pulse Oximetry (%) 95 01/14/17 21:00 Constitutional: Yes: Well Nourished HENT: Yes: WNL Neck: Yes: WNL, Supple Cardiovascular: Yes: WNL, Regular Rate and Rhythm Respiratory: Yes: Diminished Gastrointestinal: Yes: WNL, Normal Bowel Sounds, Soft Edema: LLE: Trace, RLE: Trace Labs: INR, PTT INR 1.20 (0.82-1.09) H 01/13/17 14:00 Problem List - Problems (1) Asthma exacerbation Code(s): J45.901 - UNSPECIFIED ASTHMA WITH (ACUTE) EXACERBATION (2) ESRD (end stage renal disease) on dialysis Code(s): N18.6 - END STAGE RENAL DISEASE Z99.2 - DEPENDENCE ON RENAL DIALYSIS (3) Chronic combined systolic (congestive) and diastolic (congestive) heart failure Code(s): I50.42 - CHRONIC COMBINED SYSTOLIC AND DIASTOLIC HRT FAIL (4) HTN (hypertension) Code(s): I10 - ESSENTIAL (PRIMARY) HYPERTENSION (5) CAD (coronary artery disease) Code(s): I25.10 - ATHSCL HEART DISEASE OF [place] CORONARY ARTERY W/O ANG PCTRS (6) HLD (hyperlipidemia) Code(s): E78.5 - HYPERLIPIDEMIA, UNSPECIFIED (7) Hx of CABG Code(s): Z95.1 - PRESENCE OF AORTOCORONARY BYPASS GRAFT (8) Panic anxiety syndrome Code(s): F41.0 - PANIC DISORDER [EPISODIC PAROXYSMAL ANXIETY] (9) Aortic stenosis Code(s): I35.0 - NONRHEUMATIC AORTIC (VALVE) STENOSIS (10) Atrial fibrillation Code(s): I48.91 - UNSPECIFIED ATRIAL FIBRILLATION Qualifiers: Atrial fibrillation type: paroxysmal Qualified Code(s): I48.0 - Paroxysmal atrial fibrillation; I48.0 - Paroxysmal atrial fibrillation; I48.0 - Paroxysmal atrial fibrillation; I48.0 - Paroxysmal atrial fibrillation
[2017-01-14] MEDS: ALBUTEROL SO4 2.5/IPRATROPIUM 0.5 INH SOL 3 ML VIAL.NEB. NEB PRN (22:17)
[2017-01-15] MEDS: methylPREDNISolone NA SUCC 40 MG/1 ML VIAL IVPB SCH ×4 (02:43→21:34)
[2017-01-15] MEDS: ALBUTEROL SO4 2.5/IPRATROPIUM 0.5 INH SOL 3 ML VIAL.NEB. NEB PRN (02:59)
[2017-01-15] MEDS: oxyCODONE HCL 5 MG TABLET PO PRN (04:14)
[2017-01-15] MEDS: ACETAMINOPHEN 325 MG TABLET (FP) PO PRN (04:15)
[2017-01-15] MEDS ORDERED: morphine CARPU-JECT 4 MG/1 ML DISP.SYRIN ONE (06:18)
[2017-01-15] MEDS: morphine CARPU-JECT 4 MG/1 ML DISP.SYRIN IVPUSH PRN ×2 (06:25→22:19)
[2017-01-15] MEDS ORDERED: INSULIN (NOVOLOG) ASPART 100 UNITS/ML 10ML VIAL ONE (07:01)
[2017-01-15] MEDS ORDERED: PT OWN MED DRAWER 7, Y5N ONE ×2 (07:02→11:52)
[2017-01-15] MEDS: SEVELAMER CARBONATE 800 MG TAB (FP) PO SCH ×3 (07:42→16:56)
[2017-01-15] MEDS ORDERED: DEXTROSE 5%-WATER - 50 ML IVPB ONE (11:52)
[2017-01-15] MEDS ORDERED: cefTRIAXone SODIUM 1 GM VIAL ONE (11:52)
[2017-01-15] MEDS: VITAMIN B COMP W-C 1 EA TABLET PO SCH (12:07)
[2017-01-15] MEDS: PANTOPRAZOLE 40 MG TABLET (FP) PO SCH (12:07)
[2017-01-15] MEDS: ASPIRIN 81 MG CHEWABLE TABLETS PO SCH (12:07)
[2017-01-15] MEDS: CINACALCET HCL 30 MG TAB (FP) PO SCH (12:07)
[2017-01-15] MEDS: CEFTRIAXONE 1 GM in DEXTROSE 5%-WATER - 50 ML IVPB SCH (12:08)
[2017-01-15] MEDS: CLOPIDOGREL BISULFATE 75 MG TABLET (FP) PO SCH (12:08)
--- NOTE | 2017-01-15 13:00 | PN ---
Progress Note (short form) - Note Progress Note: RENAL DIALYZED today hips 20 nr 3 hr k2 ca2.5 2.5 KG REMOVED FLU NEG HAS AN ACUTE BRONCHITIS O/E WHEEZY EXT NO EDEMA ON SOLUMEDROL NEBS abx tolerated ceftriaxone fine still wheezy will need to stay in till tuesday most likely
--- NOTE | 2017-01-15 14:07 | CON.PULM ---
Consult Consult Specialty:: PULMONARY Referred by:: JAH Reason for Consultation:: SOB - History of Present Illness Chief Complaint: sob/cough/wheeze History of Present Illness: Patient is a 61F with history of ESRD, CHF, CAD, NM s/p stenting, Breast cancer (s/p left sided mastectomy 03/03, radiation therapy and hormonal inhibition), and asthma here today complaining of a dry cough for the past two days. She says specifically that this does not feel like the other times that she's been fluid overloaded. She says that her granddaughter was sick a few days before she was. She's also complaining of diffuse muscle aches in her back , arms and legs. She denies fevers, nausea and vomiting, but endorses chills. She denies chest pain, shortness of breath, abdominal pain and increased leg swelling. She's never had a blood clot in the past. She had a recent FLU vaccine which she attributes to her present condition. - History Source History Provided By: Patient, Medical Record Limitations to Obtaining History: No Limitations - Past Medical History UTILITY PERSON: No: Alzheimer's Cardio/Vascular: Yes: AFIB, Aortic Stenosis, CAD, CHF, HTN, Hyperlipdemia, NM, Pulmonary Hypertension Pulmonary: Yes: Asthma, COPD Gastrointestinal: Yes: GI Bleed (colitis, requiring transfusions), Other ( COLITIS ) Renal/: Yes: Renal Failure, Hemodialysis ...LMP: 12/11/10 Psych: Yes: Anxiety - Past Surgical History Past Surgical History: Yes: AV Fistula/Graft, CABG, Cholecystectomy, Stent - Alcohol/Substance Use Hx Alcohol Use: No - Smoking History Smoking history: Unknown if ever smoked Have you smoked in the past 12 months: Yes Aproximately how many cigarettes per day: 20 If you are a former smoker, when did you quit?: 4 MONTHS AGO - Social History Usual Living Arrangement: Other (daughter is here for 5 days and then sister is arriving on tues from [place]) ADL: Independent History of Recent Travel: No Home Medications - Allergies Allergies/Adverse Reactions: Allergies Allergy/AdvReac Type Severity Reaction Status Date / Time No Known Drug Allergies Allergy Verified 01/13/17 13:42 PLASTIC TAPE Allergy "RASH,ITCHY Uncoded 01/13/17 14:37 " - Home Medications Home Medications: Ambulatory Orders Aspirin [ASA -] 81 mg PO DAILY 12/04/15 Pravastatin Sodium [Pravachol -] 40 mg PO HS 12/04/15 Sevelamer Carbonate [Renvela -] 2,400 mg PO TID 12/04/15 Clopidogrel Bisulfate [Plavix -] 75 mg PO DAILY tablet 05/13/16 Anastrozole [Arimidex -] 1 mg PO HS 01/13/17 Cinacalcet HCl [Sensipar] 60 mg PO DAILY 01/13/17 Folic Acid/Vit Bcomp,C [Alysa-[place]and[place] Tablet] 0.8 mg PO DAILY 01/13/17 Metoprolol Succinate [Toprol XL -] 12.5 mg PO HS 01/13/17 Pantoprazole Sodium [Protonix] 40 mg PO DAILY 01/13/17 Family Disease History - Family Disease History Family History: Unremarkable Review of Systems - Review of Systems Cardiovascular: reports: Shortness of Breath. denies: Chest Pain Respiratory: reports: Cough, Exercise Intolerance, SOB, SOB on Exertion, Wheezing. denies: Hemoptysis Physical Exam Vital Sings: Vital Signs Temperature 98.4 F 01/15/17 08:15 Pulse Rate 71 01/15/17 12:13 Respiratory Rate 18 01/15/17 11:25 Blood Pressure 115/53 01/15/17 12:13 O2 Sat by Pulse Oximetry (%) 95 01/14/17 21:00 Constitutional: Yes: Anxious Eyes: Yes: EOM Intact HENT: Yes: Normocephalic Neck: Yes: Trachea Midline Cardiovascular: Yes: Regular Rate and Rhythm, S1, S2 Respiratory: Yes: Cough, Rales, Rhonchi, Wheezes Gastrointestinal: Yes: Normal Bowel Sounds, Abdomen, Obese Edema: LLE: 1+, RLE: 1+ Labs: REVIEWED Imaging - Results Chest X-ray: Image Reviewed Problem List - Problems (1) Asthma exacerbation Code(s): J45.901 - UNSPECIFIED ASTHMA WITH (ACUTE) EXACERBATION (2) ESRD (end stage renal disease) on dialysis Code(s): N18.6 - END STAGE RENAL DISEASE Z99.2 - DEPENDENCE ON RENAL DIALYSIS (3) Renal failure Code(s): N19 - UNSPECIFIED KIDNEY FAILURE (4) Shortness of breath at rest Code(s): R06.02 - SHORTNESS OF BREATH (5) Aortic stenosis Code(s): I35.0 - NONRHEUMATIC AORTIC (VALVE) STENOSIS Assessment/Plan ACUTE EXACERBATION B. ASTHMA LIKELY ACUTE BRONCHITIS CRF/AVF/HD CAD/NM/PCI STENT BREAST CA S/P MASTECTOMY/RT/HORMONAL RX IV STEROIDS O2 REX/LABA/LAMA/ICS ANTIBIOTICS DAILY PEAK FLOW WILL FOLLOW Ania UMANZOR MD
[2017-01-15] MEDS: guaiFENesin/D-METHORPHAN HB 10 ML UNIT-DOSE CUPS PO PRN ×2 (15:01→23:18)
[2017-01-15] MEDS: ALBUTEROL SO4 0.083% IH SOL 2.5 MG/3 ML VIAL.NEB. NEB SCH ×2 (17:23→22:59)
[2017-01-15] MEDS: ANASTROZOLE 1 MG TABLET PO SCH (21:34)
[2017-01-15] MEDS: MOMETASONE FUROATE 110 MCG/IH INHALER IH SCH (21:35)
[2017-01-15] MEDS: MONTELUKAST NA 10 MG TABLET PO SCH (21:36)
[2017-01-15] MEDS: ATORVASTATIN CA 10 MG TABLET (FP) PO SCH (21:36)
[2017-01-15] MEDS: METOPROLOL SUCCINATE 25 MG TAB.SR.24H (FP) PO SCH (21:36)
--- NOTE | 2017-01-15 23:47 | PN ---
Progress Note, Physician History of Present Illness: Pt w/ dry nonproductive cough - Current Medication List Current Medications: Active Medications Acetaminophen (Tylenol -) 325 mg PO Q6H PRN PRN Reason: PAIN Last Admin: 01/15/17 04:15 Dose: 325 mg Albuterol Sulfate (Ventolin 0.083% Nebulizer Soln -) 1 amp NEB Q4H [facility] Last Admin: 01/15/17 22:59 Dose: 1 amp Anastrozole (Arimidex -) 1 mg PO HS [facility] Last Admin: 01/15/17 21:34 Dose: 1 mg Aspirin (Asa -) 81 mg PO DAILY [facility] Last Admin: 01/15/17 12:07 Dose: 81 mg Atorvastatin Calcium (Lipitor -) 10 mg PO HS [facility] Last Admin: 01/15/17 21:36 Dose: 10 mg Cinacalcet (Sensipar -) 60 mg PO DAILY [facility] Last Admin: 01/15/17 12:07 Dose: 60 mg Clopidogrel Bisulfate (Plavix -) 75 mg PO DAILY [facility] Last Admin: 01/15/17 12:08 Dose: 75 mg Guaifenesin (Robitussin Dm -) 10 ml PO Q6H PRN PRN Reason: COUGH Last Admin: 01/15/17 23:18 Dose: 10 ml Ceftriaxone Sodium 1 gm/ (Dextrose) 50 mls @ 100 mls/hr IVPB DAILY [facility] Last Admin: 01/15/17 12:08 Dose: 100 mls/hr Methylprednisolone Sodium Succinate (Solu-Medrol -) 40 mg IVPB Q6H-IV [facility] Last Admin: 01/15/17 21:34 Dose: 40 mg Metoprolol Succinate (Toprol Xl -) 12.5 mg PO HS [facility] Last Admin: 01/15/17 21:36 Dose: 12.5 mg Mometasone Furoate (Asmanex 110mcg -) 1 puff IH BID [facility] Last Admin: 01/15/17 21:35 Dose: 1 puff Montelukast Sodium (Singulair -) 10 mg PO HS [facility] Last Admin: 01/15/17 21:36 Dose: 10 mg Morphine Sulfate (Morphine Injection -) 4 mg IVPUSH Q6H PRN PRN Reason: SEVERE PAIN Last Admin: 01/15/17 22:19 Dose: 4 mg Multivit/Ca Carb/B Cmplx/FA/Prenat (Nephro-[place] -) 1 tablet PO DAILY [facility] Last Admin: 01/15/17 12:07 Dose: 1 tablet Oxycodone HCl (Roxicodone -) 5 mg PO Q6H PRN PRN Reason: PAIN 6-10 Last Admin: 01/15/17 04:14 Dose: 5 mg Pantoprazole Sodium (Protonix -) 40 mg PO DAILY [facility] Last Admin: 01/15/17 12:07 Dose: 40 mg Sevelamer Carbonate (Renvela -) 2,400 mg PO TIDCM [facility] Last Admin: 01/15/17 16:56 Dose: 2,400 mg Tiotropium [place] (Spiriva -) 1 puff IH DAILY [facility] - Objective Vital Signs: Vital Signs Temperature 98.1 F 01/15/17 18:00 Pulse Rate 67 01/15/17 18:00 Respiratory Rate 18 01/15/17 18:00 Blood Pressure 141/60 01/15/17 18:00 O2 Sat by Pulse Oximetry (%) 95 01/14/17 21:00 Constitutional: Yes: Well Nourished Neck: Yes: WNL, Supple Cardiovascular: Yes: WNL, Regular Rate and Rhythm Respiratory: Yes: Wheezes Gastrointestinal: Yes: WNL, Normal Bowel Sounds, Soft, Abdomen, Obese Edema: LLE: Trace, RLE: Trace Labs: INR, PTT INR 1.20 (0.82-1.09) H 01/13/17 14:00 Problem List - Problems (1) Asthma exacerbation Assessment/Plan: Acute bronchitis Cont IV ceftriaxone/nebulizers Cont IV steroids Code(s): J45.901 - UNSPECIFIED ASTHMA WITH (ACUTE) EXACERBATION (2) ESRD (end stage renal disease) on dialysis Assessment/Plan: Pt received dialysis today As per renal Monitor electrolytes Code(s): N18.6 - END STAGE RENAL DISEASE Z99.2 - DEPENDENCE ON RENAL DIALYSIS (3) Chronic combined systolic (congestive) and diastolic (congestive) heart failure Assessment/Plan: BNP elevated >89,000 Check echo Cardio consult Code(s): I50.42 - CHRONIC COMBINED SYSTOLIC AND DIASTOLIC HRT FAIL (4) HTN (hypertension) Assessment/Plan: Cont toprol BP stable Code(s): I10 - ESSENTIAL (PRIMARY) HYPERTENSION (5) CAD (coronary artery disease) Code(s): I25.10 - ATHSCL HEART DISEASE OF [place] CORONARY ARTERY W/O ANG PCTRS (6) HLD (hyperlipidemia) Code(s): E78.5 - HYPERLIPIDEMIA, UNSPECIFIED (7) Hx of CABG Code(s): Z95.1 - PRESENCE OF AORTOCORONARY BYPASS GRAFT (8) Panic anxiety syndrome Code(s): F41.0 - PANIC DISORDER WITHOUT AGORAPHOBIA (9) Aortic stenosis Code(s): I35.0 - NONRHEUMATIC AORTIC (VALVE) STENOSIS (10) Atrial fibrillation Code(s): I48.91 - UNSPECIFIED ATRIAL FIBRILLATION Qualifiers: Atrial fibrillation type: paroxysmal Qualified Code(s): I48.0 - Paroxysmal atrial fibrillation; I48.0 - Paroxysmal atrial fibrillation; I48.0 - Paroxysmal atrial fibrillation; I48.0 - Paroxysmal atrial fibrillation
[2017-01-16] MEDS: ALBUTEROL SO4 0.083% IH SOL 2.5 MG/3 ML VIAL.NEB. NEB SCH ×6 (02:00→21:40)
[2017-01-16] MEDS: methylPREDNISolone NA SUCC 40 MG/1 ML VIAL IVPB SCH ×2 (02:49→09:24)
[2017-01-16] MEDS: guaiFENesin/D-METHORPHAN HB 10 ML UNIT-DOSE CUPS PO PRN ×3 (06:10→21:14)
[2017-01-16 06:36] LABS: HEP B SURFACE AB Reactive (.)
[2017-01-16] MEDS: SEVELAMER CARBONATE 800 MG TAB (FP) PO SCH ×3 (08:02→17:19)
[2017-01-16] MEDS ORDERED: PT OWN MED DRAWER 7, Y5N ONE (09:08)
[2017-01-16] MEDS ORDERED: cefTRIAXone SODIUM 1 GM VIAL ONE (09:08)
[2017-01-16] MEDS ORDERED: DEXTROSE 5%-WATER - 50 ML IVPB ONE (09:08)
[2017-01-16] MEDS: CEFTRIAXONE 1 GM in DEXTROSE 5%-WATER - 50 ML IVPB SCH (09:23)
[2017-01-16] MEDS: ASPIRIN 81 MG CHEWABLE TABLETS PO SCH (09:24)
[2017-01-16] MEDS: VITAMIN B COMP W-C 1 EA TABLET PO SCH (09:24)
[2017-01-16] MEDS: CLOPIDOGREL BISULFATE 75 MG TABLET (FP) PO SCH (09:25)
[2017-01-16] MEDS: CINACALCET HCL 30 MG TAB (FP) PO SCH (09:25)
[2017-01-16] MEDS: TIOTROPIUM BROMIDE 18 MCG/INH (DEVICE W/ 5 CAPSULES) IH SCH (09:25)
[2017-01-16] MEDS: PANTOPRAZOLE 40 MG TABLET (FP) PO SCH (09:25)
[2017-01-16] MEDS: MOMETASONE FUROATE 110 MCG/IH INHALER IH SCH ×2 (09:28→21:15)
--- NOTE | 2017-01-16 13:06 | PN ---
Progress Note (short form) - Note Progress Note: PULMONARY SUBJECTIVE IMPROVEMENT VSS/AFEBRILE ANICTERIC MINIMAL B/L RHONCHI S1S2 BS+ AVF LEFT UPPER EXT MEDS/LABS/RADIOGRAPHS REVIEWED ACUTE EXACERBATION B. ASTHMA LIKELY ACUTE BRONCHITIS CRF/AVF/HD CAD/NC/PCI STENT BREAST CA S/P MASTECTOMY/RT/HORMONAL RX IV STEROIDS TO BE TAPERED O2 REX/LABA/LAMA/ICS ANTIBIOTICS DAILY PEAK FLOW WILL FOLLOW Ania UMANZOR MD Problem List - Problems (1) Asthma exacerbation Code(s): J45.901 - UNSPECIFIED ASTHMA WITH (ACUTE) EXACERBATION (2) ESRD (end stage renal disease) on dialysis Code(s): N18.6 - END STAGE RENAL DISEASE Z99.2 - DEPENDENCE ON RENAL DIALYSIS (3) Renal failure Code(s): N19 - UNSPECIFIED KIDNEY FAILURE (4) Shortness of breath at rest Code(s): R06.02 - SHORTNESS OF BREATH (5) Aortic stenosis Code(s): I35.0 - NONRHEUMATIC AORTIC (VALVE) STENOSIS
[2017-01-16] MEDS: DOCUSATE SODIUM 100 MG CAPSULE (FP) PO SCH ×2 (14:51→21:16)
[2017-01-16] MEDS: morphine CARPU-JECT 4 MG/1 ML DISP.SYRIN IVPUSH PRN (17:38)
[2017-01-16] MEDS ORDERED: methylPREDNISolone NA SUCC 40 MG/1 ML VIAL IVPB SCH ×2 (18:00→22:00)
--- NOTE | 2017-01-16 19:29 | PN ---
Progress Note, Physician Chief Complaint: No acute distress Patient was seen and examined around 9am this morning at which time she appeared comfortable with mild cough Echo was essentially unchanged from prior with still appearing moderate - Current Medication List Current Medications: Active Medications Acetaminophen (Tylenol -) 325 mg PO Q6H PRN PRN Reason: PAIN Last Admin: 01/15/17 04:15 Dose: 325 mg Albuterol Sulfate (Ventolin 0.083% Nebulizer Soln -) 1 amp NEB Q4H [facility] Last Admin: 01/16/17 17:26 Dose: 1 amp Anastrozole (Arimidex -) 1 mg PO HS [facility] Last Admin: 01/15/17 21:34 Dose: 1 mg Aspirin (Asa -) 81 mg PO DAILY [facility] Last Admin: 01/16/17 09:24 Dose: 81 mg Atorvastatin Calcium (Lipitor -) 10 mg PO HS [facility] Last Admin: 01/15/17 21:36 Dose: 10 mg Cinacalcet (Sensipar -) 60 mg PO DAILY [facility] Last Admin: 01/16/17 09:25 Dose: 60 mg Clopidogrel Bisulfate (Plavix -) 75 mg PO DAILY [facility] Last Admin: 01/16/17 09:25 Dose: 75 mg Docusate Sodium (Colace -) 100 mg PO TID [facility] Last Admin: 01/16/17 14:51 Dose: 100 mg Guaifenesin (Robitussin Dm -) 10 ml PO Q6H PRN PRN Reason: COUGH Last Admin: 01/16/17 12:27 Dose: 10 ml Ceftriaxone Sodium 1 gm/ (Dextrose) 50 mls @ 100 mls/hr IVPB DAILY [facility] Last Admin: 01/16/17 09:23 Dose: 100 mls/hr Methylprednisolone Sodium Succinate (Solu-Medrol -) 40 mg IVPB Q8H-IV [facility] Last Admin: 01/16/17 17:19 Dose: 40 mg Metoprolol Succinate (Toprol Xl -) 12.5 mg PO HS [facility] Last Admin: 01/15/17 21:36 Dose: 12.5 mg Mometasone Furoate (Asmanex 110mcg -) 1 puff IH BID [facility] Last Admin: 01/16/17 09:28 Dose: 1 puff Montelukast Sodium (Singulair -) 10 mg PO HS [facility] Last Admin: 01/15/17 21:36 Dose: 10 mg Morphine Sulfate (Morphine Injection -) 4 mg IVPUSH Q6H PRN PRN Reason: SEVERE PAIN Last Admin: 01/16/17 17:38 Dose: 4 mg Multivit/Ca Carb/B Cmplx/FA/Prenat (Nephro-[place] -) 1 tablet PO DAILY [facility] Last Admin: 01/16/17 09:24 Dose: 1 tablet Oxycodone HCl (Roxicodone -) 5 mg PO Q6H PRN PRN Reason: PAIN 6-10 Last Admin: 01/15/17 04:14 Dose: 5 mg Pantoprazole Sodium (Protonix -) 40 mg PO DAILY [facility] Last Admin: 01/16/17 09:25 Dose: 40 mg Sevelamer Carbonate (Renvela -) 2,400 mg PO TIDCM [facility] Last Admin: 01/16/17 17:19 Dose: 2,400 mg Tiotropium [place] (Spiriva -) 1 puff IH DAILY [facility] Last Admin: 01/16/17 09:25 Dose: 1 puff - Objective Vital Signs: Vital Signs Temperature 98.1 F 01/16/17 18:00 Pulse Rate 71 01/16/17 18:00 Respiratory Rate 20 01/16/17 18:00 Blood Pressure 134/60 01/16/17 18:00 O2 Sat by Pulse Oximetry (%) 95 01/14/17 21:00 Constitutional: Yes: No Distress, Calm Cardiovascular: Yes: Regular Rate and Rhythm Respiratory: Yes: Other (decreased breath sounds bilaterally, no rales or active wheezing) Gastrointestinal: Yes: Soft Edema: No Neurological: Yes: Alert, Oriented ...Motor Strength: WNL Labs: INR, PTT INR 1.20 (0.82-1.09) H 01/13/17 14:00 Assessment/Plan IMP/PlAN: Acute exacerbation COPD/bronchitis ESRD Moderate History of CAD and PAF Prior severe GI bleed, not candidate for full AC Breast Ca s/p mastectomy, XRT and hormonal Rx ongoing REC: -steroid taper/nebs/supp O2 as per PMD and pulmonary -HD TIW -presently stable from CV standpoint: to continue ASA and metoprolol. Not a candidate for full AC (PAF) due to prior h/o severe GI bleed requiring multiple transfusions. -Continued outpatient f/u for , should have repeat echo in 12 months unless clinical change.
[2017-01-16] MEDS: ANASTROZOLE 1 MG TABLET PO SCH (21:14)
[2017-01-16] MEDS: MONTELUKAST NA 10 MG TABLET PO SCH (21:16)
[2017-01-16] MEDS: ATORVASTATIN CA 10 MG TABLET (FP) PO SCH (21:16)
[2017-01-16] MEDS: METOPROLOL SUCCINATE 25 MG TAB.SR.24H (FP) PO SCH (21:16)
--- NOTE | 2017-01-16 21:44 | PN ---
Progress Note, Physician History of Present Illness: Pt w/ dry nonproductive cough - Current Medication List Current Medications: Active Medications Acetaminophen (Tylenol -) 325 mg PO Q6H PRN PRN Reason: PAIN Last Admin: 01/15/17 04:15 Dose: 325 mg Albuterol Sulfate (Ventolin 0.083% Nebulizer Soln -) 1 amp NEB Q4H [facility] Last Admin: 01/16/17 21:40 Dose: 1 amp Anastrozole (Arimidex -) 1 mg PO HS [facility] Last Admin: 01/16/17 21:14 Dose: 1 mg Aspirin (Asa -) 81 mg PO DAILY [facility] Last Admin: 01/16/17 09:24 Dose: 81 mg Atorvastatin Calcium (Lipitor -) 10 mg PO HS [facility] Last Admin: 01/16/17 21:16 Dose: 10 mg Cinacalcet (Sensipar -) 60 mg PO DAILY [facility] Last Admin: 01/16/17 09:25 Dose: 60 mg Clopidogrel Bisulfate (Plavix -) 75 mg PO DAILY [facility] Last Admin: 01/16/17 09:25 Dose: 75 mg Docusate Sodium (Colace -) 100 mg PO TID [facility] Last Admin: 01/16/17 21:16 Dose: 100 mg Guaifenesin (Robitussin Dm -) 10 ml PO Q6H PRN PRN Reason: COUGH Last Admin: 01/16/17 21:14 Dose: 10 ml Ceftriaxone Sodium 1 gm/ (Dextrose) 50 mls @ 100 mls/hr IVPB DAILY [facility] Last Admin: 01/16/17 09:23 Dose: 100 mls/hr Methylprednisolone Sodium Succinate (Solu-Medrol -) 40 mg IVPB Q8H-IV [facility] Last Admin: 01/16/17 17:19 Dose: 40 mg Metoprolol Succinate (Toprol Xl -) 12.5 mg PO HS [facility] Last Admin: 01/16/17 21:16 Dose: 12.5 mg Mometasone Furoate (Asmanex 110mcg -) 1 puff IH BID [facility] Last Admin: 01/16/17 21:15 Dose: 1 puff Montelukast Sodium (Singulair -) 10 mg PO HS [facility] Last Admin: 01/16/17 21:16 Dose: 10 mg Morphine Sulfate (Morphine Injection -) 4 mg IVPUSH Q6H PRN PRN Reason: SEVERE PAIN Last Admin: 01/16/17 17:38 Dose: 4 mg Multivit/Ca Carb/B Cmplx/FA/Prenat (Nephro-[place] -) 1 tablet PO DAILY [facility] Last Admin: 01/16/17 09:24 Dose: 1 tablet Oxycodone HCl (Roxicodone -) 5 mg PO Q6H PRN PRN Reason: PAIN 6-10 Last Admin: 01/15/17 04:14 Dose: 5 mg Pantoprazole Sodium (Protonix -) 40 mg PO DAILY [facility] Last Admin: 01/16/17 09:25 Dose: 40 mg Sevelamer Carbonate (Renvela -) 2,400 mg PO TIDCM [facility] Last Admin: 01/16/17 17:19 Dose: 2,400 mg Tiotropium [place] (Spiriva -) 1 puff IH DAILY [facility] Last Admin: 01/16/17 09:25 Dose: 1 puff - Objective Vital Signs: Vital Signs Temperature 98.1 F 01/16/17 18:00 Pulse Rate 71 01/16/17 18:00 Respiratory Rate 20 01/16/17 18:00 Blood Pressure 134/60 01/16/17 18:00 O2 Sat by Pulse Oximetry (%) 95 01/14/17 21:00 Constitutional: Yes: Well Nourished Neck: Yes: WNL Cardiovascular: Yes: WNL, Regular Rate and Rhythm Respiratory: Yes: Diminished Gastrointestinal: Yes: WNL, Normal Bowel Sounds, Soft, Abdomen, Obese Edema: LLE: Trace, RLE: Trace Labs: INR, PTT INR 1.20 (0.82-1.09) H 01/13/17 14:00 Problem List - Problems (1) Asthma exacerbation Assessment/Plan: Acute exacerbation D/C ceftriaxone Start ceftin Taper IV steroids PT eval Code(s): J45.901 - UNSPECIFIED ASTHMA WITH (ACUTE) EXACERBATION (2) ESRD (end stage renal disease) on dialysis Assessment/Plan: Dialysis as per renal(TIW) Cont renvela Code(s): N18.6 - END STAGE RENAL DISEASE Z99.2 - DEPENDENCE ON RENAL DIALYSIS (3) HTN (hypertension) Assessment/Plan: Cont toprol/asa BP stable Code(s): I10 - ESSENTIAL (PRIMARY) HYPERTENSION (4) Chronic combined systolic (congestive) and diastolic (congestive) heart failure Code(s): I50.42 - CHRONIC COMBINED SYSTOLIC AND DIASTOLIC HRT FAIL (5) CAD (coronary artery disease) Assessment/Plan: Cont asa/plavix/lipitor Code(s): I25.10 - ATHSCL HEART DISEASE OF [place] CORONARY ARTERY W/O ANG PCTRS (6) HLD (hyperlipidemia) Assessment/Plan: Cont lipitor Code(s): E78.5 - HYPERLIPIDEMIA, UNSPECIFIED (7) Hx of CABG Code(s): Z95.1 - PRESENCE OF AORTOCORONARY BYPASS GRAFT (8) Panic anxiety syndrome Code(s): F41.0 - PANIC DISORDER [EPISODIC PAROXYSMAL ANXIETY] (9) Aortic stenosis Code(s): I35.0 - NONRHEUMATIC AORTIC (VALVE) STENOSIS (10) Atrial fibrillation Assessment/Plan: Pt is in NSR Code(s): I48.91 - UNSPECIFIED ATRIAL FIBRILLATION Qualifiers: Atrial fibrillation type: paroxysmal Qualified Code(s): I48.0 - Paroxysmal atrial fibrillation; I48.0 - Paroxysmal atrial fibrillation; I48.0 - Paroxysmal atrial fibrillation; I48.0 - Paroxysmal atrial fibrillation (11) Breast CA Assessment/Plan: Cont arimidex Code(s): C50.919 - MALIGNANT NEOPLASM OF UNSP SITE OF UNSPECIFIED FEMALE BREAST
[2017-01-16] MEDS: CEFUROXIME AXETIL 500 MG TABLET PO SCH (22:21)
[2017-01-16] MEDS: traMADol HCL 50 MG TABLET PO PRN (23:23)
[2017-01-17] MEDS: ALBUTEROL SO4 0.083% IH SOL 2.5 MG/3 ML VIAL.NEB. NEB SCH ×6 (02:12→22:28)
[2017-01-17] MEDS: methylPREDNISolone NA SUCC 40 MG/1 ML VIAL IVPB SCH ×3 (05:57→21:13)
[2017-01-17] MEDS: DOCUSATE SODIUM 100 MG CAPSULE (FP) PO SCH ×3 (05:57→21:10)
[2017-01-17] MEDS: guaiFENesin/D-METHORPHAN HB 10 ML UNIT-DOSE CUPS PO PRN ×2 (06:14→13:48)
[2017-01-17 07:46] LABS: BASOPHIL 0.2 % (0-2.0); MCH 33.5 pg (25.7-33.7); MCHC 31.2 g/dl (32.0-36.0); MEAN CELL VOLUME 107.3 fl (80-96); MEAN PLT VOLUME 8.4 fl (7.5-11.1); NEUTROPHILS 86.6 % (42.8-82.8); PLATELET COUNT 228 K/MM3 (134-434); RDW 17.3 % (11.6-15.6); WHITE BLOOD COUNT 8.6 K/mm3 (4.0-10.0)
[2017-01-17] MEDS: SEVELAMER CARBONATE 800 MG TAB (FP) PO SCH ×3 (08:07→17:45)
[2017-01-17 08:12] LABS: SGPT/ALT 151 U/L (12-78)
[2017-01-17 08:25] LABS: ALBUMIN 3.2 g/dl (3.4-5.0); ALK PHOS 298 U/L (45-117); ANION GAP 10 (8-16); BILIRUBIN,TOTAL 0.7 mg/dL (0.2-1.0); CO2 29 mmol/L (21-32); GLUCOSE,RANDOM 104 mg/dL (74-106); SGOT/AST 148 U/L (15-37); TOT PROT 6.7 g/dl (6.4-8.2)
[2017-01-17 08:36] LABS: CREATININE 8.1 mg/dL (0.55-1.02)
[2017-01-17] MEDS ORDERED: PT OWN MED DRAWER 7, Y5N ONE ×2 (10:01→10:46)
[2017-01-17] MEDS: PANTOPRAZOLE 40 MG TABLET (FP) PO SCH (10:07)
[2017-01-17] MEDS: ASPIRIN 81 MG CHEWABLE TABLETS PO SCH (10:07)
[2017-01-17] MEDS: MOMETASONE FUROATE 110 MCG/IH INHALER IH SCH ×2 (10:08→21:10)
[2017-01-17] MEDS: TIOTROPIUM BROMIDE 18 MCG/INH (DEVICE W/ 5 CAPSULES) IH SCH (10:09)
[2017-01-17] MEDS: CEFUROXIME AXETIL 500 MG TABLET PO SCH ×2 (10:13→21:10)
[2017-01-17] MEDS: CLOPIDOGREL BISULFATE 75 MG TABLET (FP) PO SCH (10:13)
[2017-01-17] MEDS: CINACALCET HCL 30 MG TAB (FP) PO SCH (10:13)
[2017-01-17] MEDS: VITAMIN B COMP W-C 1 EA TABLET PO SCH (10:14)
--- NOTE | 2017-01-17 10:42 | PN ---
Progress Note, Physician History of Present Illness: seen and examined today in nad. states she is still sob and coughing, no sig change. no overnight events. no new complaints. - Current Medication List Current Medications: Active Medications Albuterol Sulfate (Ventolin 0.083% Nebulizer Soln -) 1 amp NEB Q4H [facility] Last Admin: 01/17/17 06:22 Dose: 1 amp Anastrozole (Arimidex -) 1 mg PO HS [facility] Last Admin: 01/16/17 21:14 Dose: 1 mg Aspirin (Asa -) 81 mg PO DAILY [facility] Last Admin: 01/17/17 10:07 Dose: 81 mg Atorvastatin Calcium (Lipitor -) 10 mg PO HS [facility] Last Admin: 01/16/17 21:16 Dose: 10 mg Cefuroxime Axetil (Ceftin -) 500 mg PO BID [facility] Last Admin: 01/17/17 10:13 Dose: 500 mg Cinacalcet (Sensipar -) 60 mg PO DAILY [facility] Last Admin: 01/17/17 10:13 Dose: 60 mg Clopidogrel Bisulfate (Plavix -) 75 mg PO DAILY [facility] Last Admin: 01/17/17 10:13 Dose: 75 mg Docusate Sodium (Colace -) 100 mg PO TID [facility] Last Admin: 01/17/17 05:57 Dose: 100 mg Guaifenesin (Robitussin Dm -) 10 ml PO Q6H PRN PRN Reason: COUGH Last Admin: 01/17/17 06:14 Dose: 10 ml Methylprednisolone Sodium Succinate (Solu-Medrol -) 40 mg IVPB BID@06,18 [facility] Last Admin: 01/17/17 05:57 Dose: 40 mg Metoprolol Succinate (Toprol Xl -) 12.5 mg PO HS [facility] Last Admin: 01/16/17 21:16 Dose: 12.5 mg Mometasone Furoate (Asmanex 110mcg -) 1 puff IH BID [facility] Last Admin: 01/17/17 10:08 Dose: 1 puff Montelukast Sodium (Singulair -) 10 mg PO [facility] Last Admin: 01/16/17 21:16 Dose: 10 mg Multivit/Ca Carb/B Cmplx/FA/Prenat (Nephro-[place] -) 1 tablet PO DAILY [facility] Last Admin: 01/17/17 10:14 Dose: 1 tablet Pantoprazole Sodium (Protonix -) 40 mg PO DAILY [facility] Last Admin: 01/17/17 10:07 Dose: 40 mg Sevelamer Carbonate (Renvela -) 2,400 mg PO TIDCM [facility] Last Admin: 01/17/17 08:07 Dose: 2,400 mg Tiotropium [place] (Spiriva -) 1 puff IH DAILY [facility] Last Admin: 01/17/17 10:09 Dose: 1 puff Tramadol HCl (Ultram -) 50 mg PO Q6H PRN PRN Reason: PAIN Last Admin: 01/16/17 23:23 Dose: 50 mg - Objective Vital Signs: Vital Signs Temperature 98.2 F 01/17/17 06:00 Pulse Rate 86 01/17/17 06:00 Respiratory Rate 20 01/17/17 06:00 Blood Pressure 130/71 01/17/17 06:00 O2 Sat by Pulse Oximetry (%) 97 01/16/17 21:00 Constitutional: Yes: No Distress, Moderate Distress, Obese Eyes: Yes: Conjunctiva Clear, EOM Intact, PERRL HENT: Yes: Atraumatic, Pharyngeal Erythema Neck: Yes: Supple, Trachea Midline Cardiovascular: Yes: Regular Rate and Rhythm, Murmur, S1, S2. No: Bradycardia, Tachycardia, Pulse Irregular, Bruit, JVD, Gallop, Rub, S3, S4, Varicosities Respiratory: Yes: Regular, Cough, Diminished, Wheezes. No: Rales, Rhonchi, SOB Gastrointestinal: Yes: Normal Bowel Sounds, Soft. No: Distention, Tenderness Edema: No Peripheral Pulses WNL: Yes Peripheral Pulses: Left Doralis Pedis: 2+, Right Dorsalis Pedis: 2+ Neurological: Yes: Alert, Oriented Psychiatric: Yes: Alert, Oriented Labs: CBC, BMP 01/17/17 07:00 01/17/17 07:00 INR, PTT INR 1.20 (0.82-1.09) H 01/13/17 14:00 - ....Imaging Chest X-ray: Report Reviewed, Image Reviewed EKG: Report Reviewed, Image Reviewed Other: Report Reviewed, Image Reviewed Assessment/Plan Acute exacerbation COPD/bronchitis ESRD Moderate History of CAD and PAF Prior severe GI bleed, not candidate for full AC Breast Ca s/p mastectomy, XRT and hormonal Rx ongoing REC: -Pt is euvolemic -Pt reports SOB/cough is unchanged -pulmonary to f/up in regards to management of AE COPD-steroid taper/nebs/supp O2 -HD TIW -Cont ASA and metoprolol. Not a candidate for full AC (PAF) due to prior h/o severe GI bleed requiring multiple transfusions. -Outpatient f/u for , should have repeat echo in 12 months unless clinical change.
[2017-01-17] MEDS ORDERED: LACTULOSE 20 GM/30 ML UDC (FOR ORAL USE ONLY) PO ONE (14:45)
--- NOTE | 2017-01-17 17:41 | PN ---
Progress Note, Physician History of Present Illness: PULMONARY ALERT,STILL C/O SOB,+WHEEZES - Current Medication List Current Medications: Active Medications Albuterol Sulfate (Ventolin 0.083% Nebulizer Soln -) 1 amp NEB Q4H [facility] Last Admin: 01/17/17 14:20 Dose: 1 amp Anastrozole (Arimidex -) 1 mg PO HS [facility] Last Admin: 01/16/17 21:14 Dose: 1 mg Aspirin (Asa -) 81 mg PO DAILY [facility] Last Admin: 01/17/17 10:07 Dose: 81 mg Atorvastatin Calcium (Lipitor -) 10 mg PO HS [facility] Last Admin: 01/16/17 21:16 Dose: 10 mg Cefuroxime Axetil (Ceftin -) 500 mg PO BID [facility] Last Admin: 01/17/17 10:13 Dose: 500 mg Cinacalcet (Sensipar -) 60 mg PO DAILY [facility] Last Admin: 01/17/17 10:13 Dose: 60 mg Clopidogrel Bisulfate (Plavix -) 75 mg PO DAILY [facility] Last Admin: 01/17/17 10:13 Dose: 75 mg Docusate Sodium (Colace -) 100 mg PO TID [facility] Last Admin: 01/17/17 13:48 Dose: 100 mg Guaifenesin (Robitussin Dm -) 10 ml PO Q6H PRN PRN Reason: COUGH Last Admin: 01/17/17 13:48 Dose: 10 ml Methylprednisolone Sodium Succinate (Solu-Medrol -) 40 mg IVPB BID@06,18 [facility] Last Admin: 01/17/17 17:12 Dose: 40 mg Metoprolol Succinate (Toprol Xl -) 12.5 mg PO HS [facility] Last Admin: 01/16/17 21:16 Dose: 12.5 mg Mometasone Furoate (Asmanex 110mcg -) 1 puff IH BID [facility] Last Admin: 01/17/17 10:08 Dose: 1 puff Montelukast Sodium (Singulair -) 10 mg PO HS [facility] Last Admin: 01/16/17 21:16 Dose: 10 mg Multivit/Ca Carb/B Cmplx/FA/Prenat (Nephro-[place] -) 1 tablet PO DAILY [facility] Last Admin: 01/17/17 10:14 Dose: 1 tablet Pantoprazole Sodium (Protonix -) 40 mg PO DAILY [facility] Last Admin: 01/17/17 10:07 Dose: 40 mg Sevelamer Carbonate (Renvela -) 2,400 mg PO TIDCM [facility] Last Admin: 01/17/17 12:15 Dose: 2,400 mg Tiotropium [place] (Spiriva -) 1 puff IH DAILY [facility] Last Admin: 01/17/17 10:09 Dose: 1 puff Tramadol HCl (Ultram -) 50 mg PO Q6H PRN PRN Reason: PAIN Last Admin: 01/16/17 23:23 Dose: 50 mg - Objective Vital Signs: Vital Signs Temperature 98.3 F 01/17/17 14:24 Pulse Rate 69 01/17/17 14:24 Respiratory Rate 20 01/17/17 14:24 Blood Pressure 128/59 01/17/17 14:24 O2 Sat by Pulse Oximetry (%) 98 01/17/17 10:05 Constitutional: Yes: Well Nourished, Calm Eyes: Yes: WNL HENT: Yes: WNL Neck: Yes: WNL Cardiovascular: Yes: Regular Rate and Rhythm, S1, S2 Respiratory: Yes: Wheezes (DILMA WHEEZES) Gastrointestinal: Yes: Normal Bowel Sounds, Soft Extremities: Yes: WNL Edema: No Labs: CBC, BMP 01/17/17 07:00 01/17/17 07:00 INR, PTT INR 1.20 (0.82-1.09) H 01/13/17 14:00 Assessment/Plan ACUTE EXACERBATION ASTHMA LIKELY ACUTE BRONCHITIS CRF AVF/HD CAD/NM/PCI STENT BREAST CA S/P MASTECTOMY/RT/HORMONAL RX IV STEROIDS O2 REX/LABA/LAMA/ICS ANTIBIOTICS DAILY PEAK FLOW HD PER RENAL DR KAUR Problem List - Problems (1) Asthma exacerbation Code(s): J45.901 - UNSPECIFIED ASTHMA WITH (ACUTE) EXACERBATION (2) ESRD (end stage renal disease) on dialysis Code(s): N18.6 - END STAGE RENAL DISEASE Z99.2 - DEPENDENCE ON RENAL DIALYSIS (3) Renal failure Code(s): N19 - UNSPECIFIED KIDNEY FAILURE (4) Shortness of breath at rest Code(s): R06.02 - SHORTNESS OF BREATH (5) Aortic stenosis Code(s): I35.0 - NONRHEUMATIC AORTIC (VALVE) STENOSIS
[2017-01-17] MEDS: traMADol HCL 50 MG TABLET PO PRN (19:43)
--- NOTE | 2017-01-17 20:00 | PN ---
Progress Note, Physician History of Present Illness: Pt w/ some respiratory distress today(increased wheezing/cough) - Current Medication List Current Medications: Active Medications Albuterol Sulfate (Ventolin 0.083% Nebulizer Soln -) 1 amp NEB Q4H [facility] Last Admin: 01/17/17 17:10 Dose: 1 amp Anastrozole (Arimidex -) 1 mg PO HS [facility] Last Admin: 01/16/17 21:14 Dose: 1 mg Aspirin (Asa -) 81 mg PO DAILY [facility] Last Admin: 01/17/17 10:07 Dose: 81 mg Atorvastatin Calcium (Lipitor -) 10 mg PO HS [facility] Last Admin: 01/16/17 21:16 Dose: 10 mg Cefuroxime Axetil (Ceftin -) 500 mg PO BID [facility] Last Admin: 01/17/17 10:13 Dose: 500 mg Cinacalcet (Sensipar -) 60 mg PO DAILY [facility] Last Admin: 01/17/17 10:13 Dose: 60 mg Clopidogrel Bisulfate (Plavix -) 75 mg PO DAILY [facility] Last Admin: 01/17/17 10:13 Dose: 75 mg Docusate Sodium (Colace -) 100 mg PO TID [facility] Last Admin: 01/17/17 13:48 Dose: 100 mg Guaifenesin (Robitussin Dm -) 10 ml PO Q6H PRN PRN Reason: COUGH Last Admin: 01/17/17 13:48 Dose: 10 ml Methylprednisolone Sodium Succinate (Solu-Medrol -) 40 mg IVPB Q6H-IV [facility] Metoprolol Succinate (Toprol Xl -) 12.5 mg PO [facility] Last Admin: 01/16/17 21:16 Dose: 12.5 mg Mometasone Furoate (Asmanex 110mcg -) 1 puff IH BID [facility] Last Admin: 01/17/17 10:08 Dose: 1 puff Montelukast Sodium (Singulair -) 10 mg PO HS [facility] Last Admin: 01/16/17 21:16 Dose: 10 mg Multivit/Ca Carb/B Cmplx/FA/Prenat (Nephro-[place] -) 1 tablet PO DAILY [facility] Last Admin: 01/17/17 10:14 Dose: 1 tablet Pantoprazole Sodium (Protonix -) 40 mg PO DAILY [facility] Last Admin: 01/17/17 10:07 Dose: 40 mg Sevelamer Carbonate (Renvela -) 2,400 mg PO TIDCM [facility] Last Admin: 01/17/17 17:45 Dose: 2,400 mg Tiotropium [place] (Spiriva -) 1 puff IH DAILY [facility] Last Admin: 01/17/17 10:09 Dose: 1 puff Tramadol HCl (Ultram -) 50 mg PO Q6H PRN PRN Reason: PAIN Last Admin: 01/17/17 19:43 Dose: 50 mg - Objective Vital Signs: Vital Signs Temperature 98.4 F 01/17/17 19:07 Pulse Rate 107 H 01/17/17 19:49 Respiratory Rate 18 01/17/17 19:49 Blood Pressure 166/100 01/17/17 19:49 O2 Sat by Pulse Oximetry (%) 98 01/17/17 10:05 Constitutional: Yes: Well Nourished Neck: Yes: WNL, Supple Cardiovascular: Yes: WNL, Regular Rate and Rhythm Respiratory: Yes: Wheezes Gastrointestinal: Yes: WNL, Normal Bowel Sounds, Soft, Abdomen, Obese Labs: CBC, BMP 01/17/17 07:00 01/17/17 07:00 INR, PTT INR 1.20 (0.82-1.09) H 01/13/17 14:00 Problem List - Problems (1) Asthma exacerbation Assessment/Plan: Acute exacerbation IV steroids increased Cont nebulizers Cont ceftin Code(s): J45.901 - UNSPECIFIED ASTHMA WITH (ACUTE) EXACERBATION (2) ESRD (end stage renal disease) on dialysis Assessment/Plan: Dialysis as per renal(TIW) Cont renvela Code(s): N18.6 - END STAGE RENAL DISEASE Z99.2 - DEPENDENCE ON RENAL DIALYSIS (3) HTN (hypertension) Assessment/Plan: Cont toprol/asa BP stable Code(s): I10 - ESSENTIAL (PRIMARY) HYPERTENSION (4) Chronic combined systolic (congestive) and diastolic (congestive) heart failure Code(s): I50.42 - CHRONIC COMBINED SYSTOLIC AND DIASTOLIC HRT FAIL (5) CAD (coronary artery disease) Assessment/Plan: Cont asa/plavix/lipitor Code(s): I25.10 - ATHSCL HEART DISEASE OF [place] CORONARY ARTERY W/O ANG PCTRS (6) HLD (hyperlipidemia) Assessment/Plan: Cont lipitor Code(s): E78.5 - HYPERLIPIDEMIA, UNSPECIFIED (7) Hx of CABG Code(s): Z95.1 - PRESENCE OF AORTOCORONARY BYPASS GRAFT (8) Panic anxiety syndrome Code(s): F41.0 - PANIC DISORDER [EPISODIC PAROXYSMAL ANXIETY] (9) Aortic stenosis Code(s): I35.0 - NONRHEUMATIC AORTIC (VALVE) STENOSIS (10) Atrial fibrillation Code(s): I48.91 - UNSPECIFIED ATRIAL FIBRILLATION Qualifiers: Atrial fibrillation type: paroxysmal Qualified Code(s): I48.0 - Paroxysmal atrial fibrillation; I48.0 - Paroxysmal atrial fibrillation; I48.0 - Paroxysmal atrial fibrillation; I48.0 - Paroxysmal atrial fibrillation (11) Breast CA Code(s): C50.919 - [facility] S[facility] OF UNSPECIFIED FEMALE BREAST
[2017-01-17] MEDS: ANASTROZOLE 1 MG TABLET PO SCH (21:09)
[2017-01-17] MEDS: ATORVASTATIN CA 10 MG TABLET (FP) PO SCH (21:10)
[2017-01-17] MEDS: METOPROLOL SUCCINATE 25 MG TAB.SR.24H (FP) PO SCH (21:10)
[2017-01-17] MEDS: MONTELUKAST NA 10 MG TABLET PO SCH (21:13)
[2017-01-18] MEDS: ALBUTEROL SO4 0.083% IH SOL 2.5 MG/3 ML VIAL.NEB. NEB SCH ×6 (02:18→22:30)
[2017-01-18] MEDS: methylPREDNISolone NA SUCC 40 MG/1 ML VIAL IVPB SCH ×2 (02:28→12:20)
[2017-01-18] MEDS: guaiFENesin/D-METHORPHAN HB 10 ML UNIT-DOSE CUPS PO PRN (04:35)
[2017-01-18] MEDS: DOCUSATE SODIUM 100 MG CAPSULE (FP) PO SCH ×4 (05:28→21:27)
[2017-01-18] MEDS: SEVELAMER CARBONATE 800 MG TAB (FP) PO SCH ×3 (07:19→17:19)
--- NOTE | 2017-01-18 09:37 | PN ---
Progress Note, Physician Chief Complaint: receiving HD, no distress - Current Medication List Current Medications: Active Medications Albuterol Sulfate (Ventolin 0.083% Nebulizer Soln -) 1 amp NEB Q4H [facility] Last Admin: 01/18/17 06:45 Dose: 1 amp Anastrozole (Arimidex -) 1 mg PO HS [facility] Last Admin: 01/17/17 21:09 Dose: 1 mg Aspirin (Asa -) 81 mg PO DAILY [facility] Last Admin: 01/17/17 10:07 Dose: 81 mg Atorvastatin Calcium (Lipitor -) 10 mg PO HS [facility] Last Admin: 01/17/17 21:10 Dose: 10 mg Cefuroxime Axetil (Ceftin -) 500 mg PO BID [facility] Last Admin: 01/17/17 21:10 Dose: 500 mg Cinacalcet (Sensipar -) 60 mg PO DAILY [facility] Last Admin: 01/17/17 10:13 Dose: 60 mg Clopidogrel Bisulfate (Plavix -) 75 mg PO DAILY [facility] Last Admin: 01/17/17 10:13 Dose: 75 mg Docusate Sodium (Colace -) 100 mg PO TID [facility] Last Admin: 01/18/17 05:38 Dose: Not Given Guaifenesin (Robitussin Dm -) 10 ml PO Q6H PRN PRN Reason: COUGH Last Admin: 01/18/17 04:35 Dose: 10 ml Methylprednisolone Sodium Succinate (Solu-Medrol -) 40 mg IVPB Q6H-IV [facility] Last Admin: 01/18/17 02:28 Dose: 40 mg Metoprolol Succinate (Toprol Xl -) 12.5 mg PO [facility] Last Admin: 01/17/17 21:10 Dose: 12.5 mg Mometasone Furoate (Asmanex 110mcg -) 1 puff IH BID [facility] Last Admin: 01/17/17 21:10 Dose: 1 puff Montelukast Sodium (Singulair -) 10 mg PO [facility] Last Admin: 01/17/17 21:13 Dose: 10 mg Multivit/Ca Carb/B Cmplx/FA/Prenat (Nephro-[place] -) 1 tablet PO DAILY [facility] Last Admin: 01/17/17 10:14 Dose: 1 tablet Pantoprazole Sodium (Protonix -) 40 mg PO DAILY [facility] Last Admin: 01/17/17 10:07 Dose: 40 mg Sevelamer Carbonate (Renvela -) 2,400 mg PO TIDCM [facility] Last Admin: 01/18/17 07:19 Dose: 2,400 mg Tiotropium [place] (Spiriva -) 1 puff IH DAILY [facility] Last Admin: 01/17/17 10:09 Dose: 1 puff Tramadol HCl (Ultram -) 50 mg PO Q6H PRN PRN Reason: PAIN Last Admin: 01/17/17 19:43 Dose: 50 mg - Objective Vital Signs: Vital Signs Temperature 98.1 F 01/18/17 06:00 Pulse Rate 75 01/18/17 06:00 Respiratory Rate 20 01/18/17 06:00 Blood Pressure 134/80 01/18/17 06:00 O2 Sat by Pulse Oximetry (%) 98 01/17/17 21:00 Constitutional: Yes: Calm Cardiovascular: Yes: Regular Rate and Rhythm (2/6 IR[place] RSB) Respiratory: Yes: Other (scattered rhonchi) Gastrointestinal: Yes: Soft Edema: No Neurological: Yes: Alert, Oriented Labs: CBC, BMP 01/17/17 07:00 01/17/17 07:00 INR, PTT INR 1.20 (0.82-1.09) H 01/13/17 14:00 Laboratory Tests 01/17/17 01/17/17 07:00 07:00 WBC 8.6 D Hgb 10.9 Plt Count 228 Sodium 136 Potassium 5.4 H Creatinine 8.1 H* Assessment/Plan Assessment/Plan Acute exacerbation COPD/bronchitis ESRD Moderate History of CAD and PAF Prior severe GI bleed, not candidate for full AC Breast Ca s/p mastectomy, XRT and hormonal Rx ongoing REC: -Pt is euvolemic -pulmonary to f/up in regards to management of AE COPD-steroid taper/nebs/supp O2 -HD TIW -Cont ASA and metoprolol. Not a candidate for full AC (PAF) due to prior h/o severe GI bleed requiring multiple transfusions. -Outpatient f/u for , should have repeat echo in 12 months unless clinical change.
[2017-01-18] MEDS: TIOTROPIUM BROMIDE 18 MCG/INH (DEVICE W/ 5 CAPSULES) IH SCH ×2 (10:00→15:36)
[2017-01-18] MEDS: MOMETASONE FUROATE 110 MCG/IH INHALER IH SCH ×2 (11:09→21:27)
[2017-01-18] MEDS: CINACALCET HCL 30 MG TAB (FP) PO SCH (11:57)
[2017-01-18] MEDS: PANTOPRAZOLE 40 MG TABLET (FP) PO SCH (11:58)
[2017-01-18] MEDS: VITAMIN B COMP W-C 1 EA TABLET PO SCH (11:58)
[2017-01-18] MEDS: ASPIRIN 81 MG CHEWABLE TABLETS PO SCH (11:58)
[2017-01-18] MEDS: CEFUROXIME AXETIL 500 MG TABLET PO SCH ×2 (11:58→21:26)
[2017-01-18] MEDS: CLOPIDOGREL BISULFATE 75 MG TABLET (FP) PO SCH (11:59)
--- NOTE | 2017-01-18 12:04 | PN ---
Progress Note (short form) - Note Progress Note: PULMONARY Breathing better after HD. Still with nonproductive cough and wheezing. No fevers or chills. Last Vital Signs Temp Pulse Resp BP Pulse Ox 98.1 F 75 20 134/80 98 01/18/17 06:00 01/18/17 10:58 01/18/17 06:00 01/18/17 06:00 01/18/17 10:58 Gen: NAD at rest Heart: RRR Lung: distant breath sounds, no wheezes appreciated Abd: soft, nontender Ext: no edema CBC, BMP 01/17/17 07:00 01/17/17 07:00 Active Medications Albuterol Sulfate (Ventolin 0.083% Nebulizer Soln -) 1 amp NEB Q4H [facility] Last Admin: 01/18/17 10:20 Dose: 1 amp Anastrozole (Arimidex -) 1 mg PO HS [facility] Last Admin: 01/17/17 21:09 Dose: 1 mg Aspirin (Asa -) 81 mg PO DAILY [facility] Last Admin: 01/18/17 11:58 Dose: 81 mg Atorvastatin Calcium (Lipitor -) 10 mg PO HS [facility] Last Admin: 01/17/17 21:10 Dose: 10 mg Cefuroxime Axetil (Ceftin -) 500 mg PO BID [facility] Last Admin: 01/18/17 11:58 Dose: 500 mg Cinacalcet (Sensipar -) 60 mg PO DAILY [facility] Last Admin: 01/18/17 11:57 Dose: 60 mg Clopidogrel Bisulfate (Plavix -) 75 mg PO DAILY [facility] Last Admin: 01/18/17 11:59 Dose: 75 mg Docusate Sodium (Colace -) 100 mg PO TID [facility] Last Admin: 01/18/17 05:38 Dose: Not Given Guaifenesin (Robitussin Dm -) 10 ml PO Q6H PRN PRN Reason: COUGH Last Admin: 01/18/17 04:35 Dose: 10 ml Methylprednisolone Sodium Succinate (Solu-Medrol -) 40 mg IVPB Q6H-IV [facility] Last Admin: 01/18/17 02:28 Dose: 40 mg Metoprolol Succinate (Toprol Xl -) 12.5 mg PO HS [facility] Last Admin: 01/17/17 21:10 Dose: 12.5 mg Mometasone Furoate (Asmanex 110mcg -) 1 puff IH BID [facility] Last Admin: 01/18/17 11:09 Dose: 1 puff Montelukast Sodium (Singulair -) 10 mg PO HS [facility] Last Admin: 01/17/17 21:13 Dose: 10 mg Multivit/Ca Carb/B Cmplx/FA/Prenat (Nephro-[place] -) 1 tablet PO DAILY [facility] Last Admin: 01/18/17 11:58 Dose: 1 tablet Pantoprazole Sodium (Protonix -) 40 mg PO DAILY [facility] Last Admin: 01/18/17 11:58 Dose: 40 mg Sevelamer Carbonate (Renvela -) 2,400 mg PO TIDCM [facility] Last Admin: 01/18/17 11:59 Dose: 2,400 mg Tiotropium [place] (Spiriva -) 1 puff IH DAILY [facility] Last Admin: 01/17/17 10:09 Dose: 1 puff Tramadol HCl (Ultram -) 50 mg PO Q6H PRN PRN Reason: PAIN Last Admin: 01/17/17 19:43 Dose: 50 mg A/P Acute Asthma Exacerbation Acute Bronchitis ESRD on HD CAD h/o Breast Ca - will decrease medrol to q8h - inhaled bronchodilators - HD per renal with ultrafiltration - O2 to keep SpO2 >90% - DVT prophylaxis
--- NOTE | 2017-01-18 12:57 | PN ---
Progress Note (short form) - Note Progress Note: RENAL DIALYZED today hips 20 3.5 hr k2 ca2.5 4 KG REMOVED FLU NEG HAS AN ACUTE BRONCHITIS O/E much clear no active wheeze EXT NO EDEMA ON SOLUMEDROL will lower to q 8 hope can be switched to po prednisone by am NEBS abx
[2017-01-18] MEDS ORDERED: methylPREDNISolone NA SUCC 40 MG/1 ML VIAL IVPB SCH (18:00)
[2017-01-18] MEDS ORDERED: PT OWN MED DRAWER 7, Y5N ONE (21:21)
[2017-01-18] MEDS: ATORVASTATIN CA 10 MG TABLET (FP) PO SCH (21:25)
[2017-01-18] MEDS: MONTELUKAST NA 10 MG TABLET PO SCH (21:26)
[2017-01-18] MEDS: ANASTROZOLE 1 MG TABLET PO SCH (21:26)
[2017-01-18] MEDS: METOPROLOL SUCCINATE 25 MG TAB.SR.24H (FP) PO SCH (21:26)
--- NOTE | 2017-01-18 23:24 | PN ---
Progress Note, Physician History of Present Illness: Pt feeling better - Current Medication List Current Medications: Active Medications Albuterol Sulfate (Ventolin 0.083% Nebulizer Soln -) 1 amp NEB Q4H [facility] Last Admin: 01/18/17 22:30 Dose: 1 amp Anastrozole (Arimidex -) 1 mg PO HS [facility] Last Admin: 01/18/17 21:26 Dose: 1 mg Aspirin (Asa -) 81 mg PO DAILY [facility] Last Admin: 01/18/17 11:58 Dose: 81 mg Atorvastatin Calcium (Lipitor -) 10 mg PO HS [facility] Last Admin: 01/18/17 21:25 Dose: 10 mg Cefuroxime Axetil (Ceftin -) 500 mg PO BID [facility] Last Admin: 01/18/17 21:26 Dose: 500 mg Cinacalcet (Sensipar -) 60 mg PO DAILY [facility] Last Admin: 01/18/17 11:57 Dose: 60 mg Clopidogrel Bisulfate (Plavix -) 75 mg PO DAILY [facility] Last Admin: 01/18/17 11:59 Dose: 75 mg Docusate Sodium (Colace -) 100 mg PO TID [facility] Last Admin: 01/18/17 21:27 Dose: Not Given Guaifenesin (Robitussin Dm -) 10 ml PO Q6H PRN PRN Reason: COUGH Last Admin: 01/18/17 04:35 Dose: 10 ml Methylprednisolone Sodium Succinate (Solu-Medrol -) 40 mg IVPB Q8H-IV [facility] Last Admin: 01/18/17 17:20 Dose: 40 mg Metoprolol Succinate (Toprol Xl -) 12.5 mg PO [facility] Last Admin: 01/18/17 21:26 Dose: 12.5 mg Mometasone Furoate (Asmanex 110mcg -) 1 puff IH BID [facility] Last Admin: 01/18/17 21:27 Dose: 1 puff Montelukast Sodium (Singulair -) 10 mg PO [facility] Last Admin: 01/18/17 21:26 Dose: 10 mg Multivit/Ca Carb/B Cmplx/FA/Prenat (Nephro-[place] -) 1 tablet PO DAILY [facility] Last Admin: 01/18/17 11:58 Dose: 1 tablet Pantoprazole Sodium (Protonix -) 40 mg PO DAILY [facility] Last Admin: 01/18/17 11:58 Dose: 40 mg Sevelamer Carbonate (Renvela -) 2,400 mg PO TIDCM [facility] Last Admin: 01/18/17 17:19 Dose: 2,400 mg Tiotropium [place] (Spiriva -) 1 puff IH DAILY [facility] Last Admin: 01/18/17 15:36 Dose: 1 puff Tramadol HCl (Ultram -) 50 mg PO Q6H PRN PRN Reason: PAIN Last Admin: 01/17/17 19:43 Dose: 50 mg - Objective Vital Signs: Vital Signs Temperature 98.5 F 01/18/17 18:00 Pulse Rate 79 01/18/17 18:00 Respiratory Rate 20 01/18/17 18:00 Blood Pressure 128/56 01/18/17 18:00 O2 Sat by Pulse Oximetry (%) 96 01/18/17 12:00 Constitutional: Yes: Well Nourished Neck: Yes: WNL, Supple Cardiovascular: Yes: WNL, Regular Rate and Rhythm Respiratory: Yes: WNL, Regular, CTA Bilaterally Gastrointestinal: Yes: WNL, Normal Bowel Sounds, Soft, Abdomen, Obese Labs: CBC, BMP 01/17/17 07:00 01/17/17 07:00 INR, PTT INR 1.20 (0.82-1.09) H 01/13/17 14:00 Problem List - Problems (1) Asthma exacerbation Assessment/Plan: Acute exacerbation Change to prednisone Cont ceftin DC planning for am Code(s): J45.901 - UNSPECIFIED ASTHMA WITH (ACUTE) EXACERBATION (2) ESRD (end stage renal disease) on dialysis Assessment/Plan: Dialysis as per renal(TIW) Cont renvela Code(s): N18.6 - END STAGE RENAL DISEASE Z99.2 - DEPENDENCE ON RENAL DIALYSIS (3) HTN (hypertension) Assessment/Plan: Cont toprol/asa BP stable Code(s): I10 - ESSENTIAL (PRIMARY) HYPERTENSION (4) Chronic combined systolic (congestive) and diastolic (congestive) heart failure Code(s): I50.42 - CHRONIC COMBINED SYSTOLIC AND DIASTOLIC HRT FAIL (5) CAD (coronary artery disease) Code(s): I25.10 - ATHSCL HEART DISEASE OF [place] CORONARY ARTERY W/O ANG PCTRS (6) HLD (hyperlipidemia) Code(s): E78.5 - HYPERLIPIDEMIA, UNSPECIFIED (7) Hx of CABG Code(s): Z95.1 - PRESENCE OF AORTOCORONARY BYPASS GRAFT (8) Panic anxiety syndrome Code(s): F41.0 - PANIC DISORDER [EPISODIC PAROXYSMAL ANXIETY] (9) Aortic stenosis Code(s): I35.0 - NONRHEUMATIC AORTIC (VALVE) STENOSIS (10) Atrial fibrillation Code(s): I48.91 - UNSPECIFIED ATRIAL FIBRILLATION Qualifiers: Atrial fibrillation type: paroxysmal Qualified Code(s): I48.0 - Paroxysmal atrial fibrillation; I48.0 - Paroxysmal atrial fibrillation; I48.0 - Paroxysmal atrial fibrillation; I48.0 - Paroxysmal atrial fibrillation (11) Breast CA Code(s): C50.919 - [facility] S[facility] OF UNSPECIFIED FEMALE BREAST
[2017-01-19] MEDS: ALBUTEROL SO4 0.083% IH SOL 2.5 MG/3 ML VIAL.NEB. NEB SCH ×4 (02:10→14:00)
[2017-01-19] MEDS: guaiFENesin/D-METHORPHAN HB 10 ML UNIT-DOSE CUPS PO PRN ×2 (03:03→15:13)
[2017-01-19] MEDS: traMADol HCL 50 MG TABLET PO PRN (03:05)
[2017-01-19] MEDS: DOCUSATE SODIUM 100 MG CAPSULE (FP) PO SCH ×2 (05:13→13:37)
--- NOTE | 2017-01-19 07:17 | PN ---
Progress Note, Physician Chief Complaint: c/o left scapular pain. Worse when coughs - Current Medication List Current Medications: Active Medications Albuterol Sulfate (Ventolin 0.083% Nebulizer Soln -) 1 amp NEB Q4H [facility] Last Admin: 01/19/17 06:15 Dose: 1 amp Anastrozole (Arimidex -) 1 mg PO HS [facility] Last Admin: 01/18/17 21:26 Dose: 1 mg Aspirin (Asa -) 81 mg PO DAILY [facility] Last Admin: 01/18/17 11:58 Dose: 81 mg Atorvastatin Calcium (Lipitor -) 10 mg PO HS [facility] Last Admin: 01/18/17 21:25 Dose: 10 mg Cefuroxime Axetil (Ceftin -) 500 mg PO BID [facility] Last Admin: 01/18/17 21:26 Dose: 500 mg Cinacalcet (Sensipar -) 60 mg PO DAILY [facility] Last Admin: 01/18/17 11:57 Dose: 60 mg Clopidogrel Bisulfate (Plavix -) 75 mg PO DAILY [facility] Last Admin: 01/18/17 11:59 Dose: 75 mg Docusate Sodium (Colace -) 100 mg PO TID [facility] Last Admin: 01/19/17 05:13 Dose: Not Given Guaifenesin (Robitussin Dm -) 10 ml PO Q6H PRN PRN Reason: COUGH Last Admin: 01/19/17 03:03 Dose: 10 ml Metoprolol Succinate (Toprol Xl -) 12.5 mg PO [facility] Last Admin: 01/18/17 21:26 Dose: 12.5 mg Mometasone Furoate (Asmanex 110mcg -) 1 puff IH BID [facility] Last Admin: 01/18/17 21:27 Dose: 1 puff Montelukast Sodium (Singulair -) 10 mg PO [facility] Last Admin: 01/18/17 21:26 Dose: 10 mg Multivit/Ca Carb/B Cmplx/FA/Prenat (Nephro-[place] -) 1 tablet PO DAILY [facility] Last Admin: 01/18/17 11:58 Dose: 1 tablet Pantoprazole Sodium (Protonix -) 40 mg PO DAILY [facility] Last Admin: 01/18/17 11:58 Dose: 40 mg Prednisone (Deltasone -) 20 mg PO BID [facility] Sevelamer Carbonate (Renvela -) 2,400 mg PO TIDCM [facility] Last Admin: 01/18/17 17:19 Dose: 2,400 mg Tiotropium [place] (Spiriva -) 1 puff IH DAILY [facility] Last Admin: 01/18/17 15:36 Dose: 1 puff Tramadol HCl (Ultram -) 50 mg PO Q6H PRN PRN Reason: PAIN Last Admin: 01/19/17 03:05 Dose: 50 mg - Objective Vital Signs: Vital Signs Temperature 98.4 F 01/18/17 20:30 Pulse Rate 71 01/18/17 20:30 Respiratory Rate 20 01/18/17 20:30 Blood Pressure 138/65 01/18/17 20:30 O2 Sat by Pulse Oximetry (%) 99 01/18/17 21:00 Constitutional: Yes: No Distress Cardiovascular: Yes: Regular Rate and Rhythm, Other (chronic 2/6 [place] RSB) Respiratory: Yes: Other (scattered rhonchi) Gastrointestinal: Yes: Soft Edema: No Neurological: Yes: Alert Labs: CBC, BMP 01/17/17 07:00 01/17/17 07:00 INR, PTT INR 1.20 (0.82-1.09) H 01/13/17 14:00 Assessment/Plan Assessment/Plan Acute exacerbation COPD/bronchitis ESRD Moderate History of CAD and PAF Prior severe GI bleed, not candidate for full AC Breast Ca s/p mastectomy, XRT and hormonal Rx ongoing REC: -Remains euvolemic -Steroid taper as per PMD -HD TIW -Cont ASA and metoprolol. Not a candidate for full AC (PAF) due to prior h/o severe GI bleed requiring multiple transfusions. -Outpatient f/u for , should have repeat echo in 12 months unless clinical change. -Left scapular pain, worse w/ movement and coughing- likely muscular. However, she is concerned it may be her cancer. Advised she discuss w/ oncology; has routine f/u scheduled, may require bone scan.
[2017-01-19] MEDS: SEVELAMER CARBONATE 800 MG TAB (FP) PO SCH ×3 (08:42→17:42)
[2017-01-19] MEDS ORDERED: predniSONE 20 MG TABLET (UD) PO SCH (10:00)
[2017-01-19] MEDS: TIOTROPIUM BROMIDE 18 MCG/INH (DEVICE W/ 5 CAPSULES) IH SCH (10:36)
[2017-01-19] MEDS: CEFUROXIME AXETIL 500 MG TABLET PO SCH (10:38)
[2017-01-19] MEDS: PANTOPRAZOLE 40 MG TABLET (FP) PO SCH (10:38)
[2017-01-19] MEDS: CLOPIDOGREL BISULFATE 75 MG TABLET (FP) PO SCH (10:38)
[2017-01-19] MEDS: ASPIRIN 81 MG CHEWABLE TABLETS PO SCH (10:38)
[2017-01-19] MEDS: VITAMIN B COMP W-C 1 EA TABLET PO SCH (10:38)
[2017-01-19] MEDS: CINACALCET HCL 30 MG TAB (FP) PO SCH (10:39)
[2017-01-19] MEDS: MOMETASONE FUROATE 110 MCG/IH INHALER IH SCH (10:45)
--- NOTE | 2017-01-19 12:54 | PN ---
Progress Note (short form) - Note Progress Note: PULMONARY LEFT POSTERIOR CHEST WALL PAIN VSS/AFEBRILE ANICTERIC MINIMAL B/L RHONCHI EXP S1S2 BS+ AVF LEFT UPPER EXT MEDS/LABS/RADIOGRAPHS REVIEWED ACUTE EXACERBATION B. ASTHMA LIKELY ACUTE BRONCHITIS CRF/AVF/HD CAD/AL/PCI STENT BREAST CA S/P MASTECTOMY/RT/HORMONAL RX LEFT POSTERIOR CHEST WALL PAIN IV STEROIDS TO BE TAPERED O2 REX/LABA/LAMA/ICS ANTIBIOTICS DAILY PEAK FLOW IMAGING OF LEFT RIBS WILL FOLLOW Ania UMANZOR MD Problem List - Problems (1) Asthma exacerbation Code(s): J45.901 - UNSPECIFIED ASTHMA WITH (ACUTE) EXACERBATION (2) ESRD (end stage renal disease) on dialysis Code(s): N18.6 - END STAGE RENAL DISEASE Z99.2 - DEPENDENCE ON RENAL DIALYSIS (3) Renal failure Code(s): N19 - UNSPECIFIED KIDNEY FAILURE (4) Shortness of breath at rest Code(s): R06.02 - SHORTNESS OF BREATH (5) Aortic stenosis Code(s): I35.0 - NONRHEUMATIC AORTIC (VALVE) STENOSIS
--- NOTE | 2017-01-19 14:47 | DS ---
Physical Examination Vital Signs: Vital Signs Temperature 97.2 F L 01/19/17 10:00 Pulse Rate 62 01/19/17 10:17 Respiratory Rate 20 01/19/17 10:00 Blood Pressure 140/78 01/19/17 10:00 O2 Sat by Pulse Oximetry (%) 95 01/19/17 10:17 Labs: CBC, BMP 01/17/17 07:00 01/17/17 07:00 Discharge Summary Reason For Visit: SHORTNESS OF BREATH Current Active Problems Asthma exacerbation (Acute) Breast CA (Acute) ESRD (end stage renal disease) on dialysis (Acute) Renal failure (Acute) Shortness of breath at rest (Acute) Condition: Good - Instructions Diet, Activity, Other Instructions: 2 gram sodium renal diet See Dr Philip in 1 week [phone] Referrals: Sandoval Brown MD [Primary Care Provider] - Disposition: HOME - Home Medications Comprehensive Discharge Medication List: Ambulatory Orders Aspirin [ASA -] 81 mg PO DAILY 12/04/15 Pravastatin Sodium [Pravachol -] 40 mg PO HS 12/04/15 Sevelamer Carbonate [Renvela -] 2,400 mg PO TID 12/04/15 Clopidogrel Bisulfate [Plavix -] 75 mg PO DAILY tablet 05/13/16 Anastrozole [Arimidex -] 1 mg PO HS 01/13/17 Cinacalcet HCl [Sensipar] 60 mg PO DAILY 01/13/17 Folic Acid/Vit Bcomp,C [[place]sa-[place] Tablet] 0.8 mg PO DAILY 01/13/17 Metoprolol Succinate [Toprol XL -] 12.5 mg PO HS 01/13/17 Pantoprazole Sodium [Protonix] 40 mg PO DAILY 01/13/17 Atorvastatin Ca [Lipitor] 10 mg PO HS #30 tablet 01/19/17 Budesonide [Pulmicort Flexhaler] 90 mcg IH BID #1 [email or web address] 01/19/17 Cefuroxime Axetil [Ceftin -] 500 mg PO BID #14 tablet 01/19/17 Montelukast Na [Singulair -] 10 mg PO HS #30 tablet 01/19/17 Prednisone [Deltasone -] 20 mg PO BID #20 tablet 01/19/17 Tiotropium [place] [Spiriva] 1 puff IH DAILY #1 inh 01/19/17
[2017-01-19 15:13] VITALS: BP 140/59; PULSE 58; TEMP 97.8
== END 2017-01-19 18:10 | disposition home health service (06) | DRG 190 ==
LOC: JER 13:19 → JERBED 16:22 → J5S 20:27
PROVIDERS: ADMIT Internal Medicine; ATTEND Internal Medicine
PROC: 5A1D70Z Performance of Urinary Filtration, Intermittent, Less than 6 Hours Per Day (ICD-10-PCS; principal; 2017-01-13)
DX: J44.0 Chronic obstructive pulmonary disease with (acute) lower respiratory infection (principal); N18.6 End stage renal disease; I13.2 Hypertensive heart and chronic kidney disease with heart failure and with stage 5 chronic kidney disease, or end stage renal disease; I50.42 Chronic combined systolic (congestive) and diastolic (congestive) heart failure; J44.1 Chronic obstructive pulmonary disease with (acute) exacerbation; I25.2 Old myocardial infarction; Z95.1 Presence of aortocoronary bypass graft; Z99.2 Dependence on renal dialysis; Z85.3 Personal history of malignant neoplasm of breast; I35.0 Nonrheumatic aortic (valve) stenosis; I25.10 Atherosclerotic heart disease of native coronary artery without angina pectoris; I27.20 Pulmonary hypertension, unspecified; F17.210 Nicotine dependence, cigarettes, uncomplicated; E66.01 Morbid (severe) obesity due to excess calories; F41.0 Panic disorder [episodic paroxysmal anxiety]; I48.0 Paroxysmal atrial fibrillation; Z68.34 Body mass index [BMI] 34.0-34.9, adult; J20.9 Acute bronchitis, unspecified
CPT/HCPCS: 36415; 71010-TC; 71101-TC; 80053; 83735; 83880; 84484; 85025; 85610; 86704; 86706; 86708; 86803; 87340; 87804; 93005; 93010; 93306-TC; 94640; 97116-GP; 97161-GP; 99283-25

== ENCOUNTER 2017-01-22 15:29 | Inpatient (IN) | payer OTHER ==
[2017-01-22 15:54] VITALS: BMI 33.8
[2017-01-22] MEDS ORDERED: morphine CARPU-JECT 4 MG/1 ML DISP.SYRIN IVPUSH ONE (16:34)
--- NOTE | 2017-01-22 16:47 | PDOC ---
History of Present Illness <Dalia Verdin - Last Filed: 01/22/17 17:02> - History of Present Illness Initial Comments: 01/22/17 16:52 The patient is a 61-year-old female BIBA with a significant past medical history of end-stage renal disease (dialysis , , Tue), breast cancer (s /p left breast mastectomy 04/2016), HTN, [place] (s/p CABG - triple bypass, 2 stents) , A-fib, aortic stenosis, CHF, GI bleed, anxiety, and presents to the emergency department with worsening back pain since 2pm today. Patient was recently discharged this week from [facility] for bronchitis. She reports the pain is located in her left upper back, with mild radiation of pain to the chest. She took two Tylenols with no significant relief. She reports she has had this pain since her mastectomy, but it acutely worsened today. She notes associated SOB. She states she missed her dialysis today secondary to pain. Pt denies headache and dizziness. Denies F/C, N/V/D. Pt denies urinary changes. Denies acute trauma. Allergies: NKDA. Past Surgical History: cardiac surgery (triple bypass, 2 stents ), left breast mastectomy, cholecystectomy. Social History: Former smoker, denies ETOH or drug use. PCP: Dr. Sandoval Brown. Irs Agent: Dr. Piper. Fuel Efficient Aircraft Designer: Dr. Cartwright <Anival Curry - Last Filed: 01/23/17 07:55> - General Chief Complaint: Chest Pain Stated Complaint: BACK PAIN Time Seen by Provider: 01/22/17 16:12 Past History <Dalia eVrdin - Last Filed: 01/22/17 17:02> - Past Medical History Anemia: Yes Asthma: Yes Cancer: No Cardiac Disorders: Yes (BYPASS SX X3, 3STENTS) CVA: No COPD: Yes CHF: No Dementia: No Diabetes: No Dialysis: Yes (,,TUE) GI Disorders: Yes (gerd) Disorders: Yes (esrd) HTN: Yes Hypercholesterolemia: Yes Liver Disease: No Seizures: No Thyroid Disease: No - Surgical History Abdominal Surgery: No Cardiac Surgery: Yes (BYPASS SX X3 stent x 3) Cholecystectomy: Yes Lung Surgery: No Neurologic Surgery: No - Immunization History Immunization Up to Date: Yes (FLU AND PNA 2012-) - Suicide/Smoking/Psychosocial Hx Smoking Status: Yes Smoking History: Unknown if ever smoked Years of Tobacco Use: 40 Have you smoked in the past 12 months: Yes Number of Cigarettes Smoked Daily: 20 If you are a former smoker, when did you quit?: 4 MONTHS AGO Information on smoking cessation initiated: No 'Breaking Loose' booklet given: 05/11/16 Hx Alcohol Use: No Drug/Substance Use Hx: No Substance Use Type: None Hx Substance Use Treatment: No <Anival Curry - Last Filed: 01/23/17 07:55> - Past Medical History Allergies/Adverse Reactions: Allergies Allergy/AdvReac Type Severity Reaction Status Date / Time No Known Drug Allergies Allergy Verified 01/22/17 15:54 PLASTIC TAPE Allergy "RASH,ITCHY Uncoded 01/22/17 15:54 " Home Medications: Ambulatory Orders Aspirin [ASA -] 81 mg PO DAILY 12/04/15 Pravastatin Sodium [Pravachol -] 40 mg PO HS 12/04/15 Sevelamer Carbonate [Renvela -] 2,400 mg PO TID 12/04/15 Clopidogrel Bisulfate [Plavix -] 75 mg PO DAILY tablet 05/13/16 Anastrozole [Arimidex -] 1 mg PO HS 01/13/17 Cinacalcet HCl [Sensipar] 60 mg PO DAILY 01/13/17 Folic Acid/Vit Bcomp,C [Alysa-[place] Tablet] 0.8 mg PO DAILY 01/13/17 Metoprolol Succinate [Toprol XL -] 12.5 mg PO HS 01/13/17 Pantoprazole Sodium [Protonix] 40 mg PO DAILY 01/13/17 Atorvastatin Ca [Lipitor] 10 mg PO HS #30 tablet 01/19/17 Budesonide [Pulmicort Flexhaler] 90 mcg IH BID #1 aer.pow.ba 01/19/17 Cefuroxime Axetil [Ceftin -] 500 mg PO BID #14 tablet 01/19/17 Montelukast Na [Singulair -] 10 mg PO HS #30 tablet 01/19/17 Prednisone [Deltasone -] 20 mg PO BID #20 tablet 01/19/17 Tiotropium [place] [Spiriva] 1 puff IH DAILY #1 inh 01/19/17 Review of Systems - Review of Systems Comments:: 01/22/17 17:00 "GENERAL/CONSTITUTIONAL: No fever or chills. No weakness. HEAD, EYES, EARS, NOSE AND THROAT: No change in vision. No ear pain or discharge. No sore throat. CARDIOVASCULAR: No chest pain or shortness of breath. RESPIRATORY: No cough, wheezing, or hemoptysis. GASTROINTESTINAL: No nausea, vomiting, diarrhea or constipation. GENITOURINARY: No dysuria, frequency, or change in urination. MUSCULOSKELETAL: (+) Back pain. No joint or muscle swelling. No neck pain. SKIN: No rash NEUROLOGIC: No headache, vertigo, loss of consciousness, or change in strength/ sensation. ENDOCRINE: No increased thirst. No abnormal weight change. HEMATOLOGIC/LYMPHATIC: No anemia, easy bleeding, or history of blood clots. ALLERGIC/IMMUNOLOGIC: No hives or skin allergy. " <Anival Curry - Last Filed: 01/23/17 07:55> *Physical Exam - Vital Signs Last Vital Signs Temp Pulse Resp BP Pulse Ox 98.6 F 104 H 16 134/78 100 01/22/17 16:31 01/22/17 16:31 01/22/17 16:31 01/22/17 16:31 01/22/17 16:31 <Verdin,Dalia - Last Filed: 01/22/17 17:02> - Vital Signs Last Vital Signs Temp Pulse Resp BP Pulse Ox 98.6 F 104 H 16 134/78 100 01/22/17 16:31 01/22/17 16:31 01/22/17 16:31 01/22/17 16:31 01/22/17 16:31 - Physical Exam Comments: 01/22/17 17:00 "GENERAL: Awake, alert, and fully oriented, in no acute distress HEAD: No signs of trauma EYES: PERRLA, EOMI, sclera anicteric, conjunctiva clear ENT: Auricles normal inspection, hearing grossly normal, nares patent, oropharynx clear without exudates. Moist mucosa NECK: Nontender, no stepoffs, Normal ROM, supple, no lymphadenopathy, JVD, or masses LUNGS: Breath sounds equal, clear to auscultation bilaterally. No wheezes, and no crackles HEART: Regular rate and rhythm, normal S1 and S2, no murmurs, rubs or gallops ABDOMEN: Soft, nontender, normoactive bowel sounds. No guarding, no rebound. No masses EXTREMITIES: Normal range of motion, no edema. No clubbing or cyanosis. No cords, erythema, or tenderness NEUROLOGICAL: Cranial nerves II through XII intact. 5/5 strength and sensation in all extremities, Normal speech, normal gait SKIN: Warm, Dry, normal turgor, no rashes or lesions noted. " <Ou,Anival - Last Filed: 01/23/17 07:55> Heart Score/ECG Review - History History: Slightly suspicious - Electrocardiogram EKG: Non specific repolarization disturbance - Age Age: 45-65 - Risk Factors Risk Factors Heart Score: Yes Hx Hypertension, Yes Hx Diabetes Based on the list above the patient has:: >/=3 risk factors or Hx atherosclerotic disease - ECG Impressions Comment:: 01/22/17 16:48 sinus tachycardia, no MARIA INES/STDs, inferolateral TWIs seen on prior EKG <Ou,Anival - Last Filed: 01/23/17 07:55> ED Treatment Course - LABORATORY CBC & Chemistry Diagram: 01/22/17 17:00 01/22/17 17:00 - RADIOLOGY Radiology Studies Ordered: Category Date Time Status CHEST CTA [CT] Stat CT Scan 01/22/17 16:34 Ordered <Anival - Last Filed: 01/23/17 07:55> Medical Decision Making - Medical Decision Making 01/22/17 17:00 61 F with ESRD, CAD, breast CA, multiple other medical problems, presenting with acute on chronic L upper back pain. Pt is tachycardic, and given h/o breast cancer, is at risk for PE. ACS unlikely given unchanged EKG. Also consider dissection, though less likely as pt is without chest pain. - CTA chest to r/o PE and dissection - Labs - Analgesia 01/22/17 19:00 Pt with elevated troponin. EKG without signs of acute ischemia but pt has been persistently tachycardic, likely causing some demand ischemia. Pt also ESRD with h/o elevated trops in past. Discussed with Dr. Singleton, java front end web developer for Dr. Cartwright, who recommends trending trop and admission to hospital. Sign out given to night team, pending CTA results and admission to hospital. Case discussed in detail with oncoming Emergency Physician including history, physical exam and ancillary studies. Oncoming Emergency Physician has assumed care for the patient and will complete the evaluation and treatment. Patient is aware of the plan. <Anival Curry - Last Filed: 01/23/17 07:55> *DC/Admit/Observation/Transfer - Attestations Scribe Attestion: 01/22/17 17:02 Documentation prepared by Dalia Verdin, acting as medical staff physician for Anival Curry MD. <Dalia Verdin - Last Filed: 01/22/17 17:02> - Attestations Physician Attestion: 01/23/17 07:55 I, Dr. Anival Curry MD, attest that this document has been prepared under my direction and personally reviewed by me in its entirety. I further attest, that it accurately reflects all work, treatment, procedures and medical decision -making performed by me. <Anival Curry - Last Filed: 01/23/17 07:55> Diagnosis at time of Disposition: ESRD (end stage renal disease) on dialysis CAD (coronary artery disease) Qualifiers: Coronary Disease-Associated Artery/Lesion type: unspecified vessel or lesion type [place] vs. transplanted heart: [place] heart Associated angina: without angina Qualified Code(s): I25.10 - Atherosclerotic heart disease of [place] coronary artery without angina pectoris
[2017-01-22] MEDS ORDERED: morphine CARPU-JECT 2 MG/1 ML DISP.SYRIN ONE (17:12)
[2017-01-22 17:25] LABS: MCHC 32.5 g/dl (32.0-36.0); MEAN CELL VOLUME 104.5 fl (80-96); MEAN PLT VOLUME 9.1 fl (7.5-11.1); PLATELET COUNT 181 K/MM3 (134-434); WHITE BLOOD COUNT 9.2 K/mm3 (4.0-10.0)
[2017-01-22 17:36] LABS: INR 1.16 (0.82-1.09); PROTHROMBIN TIME (PATIENT) 12.8 SEC (9.98-11.88)
[2017-01-22 18:05] LABS: TROPONIN I 1.3 ng/ml (0.00-0.05)
--- NOTE | 2017-01-22 19:26 | PDOC ---
*Physical Exam - Vital Signs Last Vital Signs Temp Pulse Resp BP Pulse Ox 98.6 F 104 H 16 134/78 100 01/22/17 16:31 01/22/17 16:31 01/22/17 16:31 01/22/17 16:31 01/22/17 16:31 ED Treatment Course - LABORATORY CBC & Chemistry Diagram: 01/22/17 17:00 01/22/17 17:00 - ADDITIONAL ORDERS Additional order review: Laboratory Results 01/22/17 01/22/17 17:00 17:00 PT with INR 12.80 H INR 1.16 H PTT (Actin FS) 28.0 Creatine Kinase 118 Troponin I 1.30 H* B-Natriuretic Peptide [id number] H 01/22/17 17:00 RBC 3.09 L MCV 104.5 H MCHC 32.5 RDW 17.0 H MPV 9.1 Neutrophils % No Result Required. Lymphocytes % No Result Required. - Medications Given in the ED: ED Medications Discontinued Medications Generic Name Dose Route Start Last Admin Trade Name Devora PRN Reason Stop Dose Admin Lorazepam 1 mg 01/22/17 17:15 01/22/17 17:27 Ativan Injection - IVPUSH 01/22/17 17:16 1 mg ONCE ONE Administration Lorazepam 2 mg 01/22/17 19:15 01/22/17 19:24 Ativan Injection - IVPUSH 01/22/17 19:16 2 mg ONCE ONE Administration Morphine Sulfate 4 mg 01/22/17 16:34 01/22/17 17:12 Morphine Injection - IVPUSH 01/22/17 16:35 4 mg ONCE ONE Administration Medical Decision Making - Medical Decision Making 01/22/17 19:26 Pt signed out to me from Dr. Lemons. The pt is a 60y F hx of ESRD (T,Th,), breast ca s/p mastectomy, htn, CAD s/p cabg, afib, chf, gib, presents with complaint of left upper back pain w radiation of kaylyn to chest. The pt also missed dialysis today. pt is awaiting blood work, cta. her trop is slightly elevated to 1.2, possibly secondary to her ESRD. dr. lemons d/w dr. hernández, agree with admission after her results are back. pmd [facility] [place] 01/22/17 22:38 ct neg for PE will admit for further management will admit to tele awaiting call back from dr. Philip 01/22/17 22:[address] philip agreed with admission for further management and for dialysis stil awaiting chemistry panel - will notify dr. de la cruz (renal) 01/22/17 23:45 pts ntoed tacy to 140s - ekg shows afib with rvr suspect due to pt not having taken her metoprolo will give her 5mg iv and reassess CRITICAL CARE DOCUMENTATION: I spent ~35 minutes of Critical Care time, excluding separately billable procedures, involving high complexity decision making to assess, manipulate and support vital system function(s) to treat single or multiple vital organ system failure and/or to prevent further life threatening deterioration of the patient' s condition. 01/23/17 00:39 HR improved to 110 with metolpro[address]ol case dw dr. vargas will see pt tmorrow for dialysis *DC/Admit/Observation/Transfer Diagnosis at time of Disposition: ESRD (end stage renal disease) on dialysis CAD (coronary artery disease) Qualifiers: Coronary Disease-Associated Artery/Lesion type: unspecified vessel or lesion type [place] vs. transplanted heart: [place] heart Associated angina: without angina Qualified Code(s): I25.10 - Atherosclerotic heart disease of [place] coronary artery without angina pectoris - Discharge Dispostion Admit: Yes
[2017-01-22 19:40] LABS: PLATELET ESTIMATE ADEQUATE (NORMAL); TOTAL CELLS COUNTED 100
[2017-01-22 19:41] LABS: HYPOCHROMIA 2+; MACROCYTOSIS 1+; MICROCYTOSIS 2+; POLYCHROMASIA 1+
[2017-01-22 23:01] LABS: ALBUMIN 3.3 g/dl (3.4-5.0); ANION GAP 22 (8-16); BILIRUBIN,TOTAL 0.6 mg/dL (0.2-1.0); CALCIUM 7.3 mg/dL (8.5-10.1); CO2 18 mmol/L (21-32); GLUCOSE,RANDOM 118 mg/dL (74-106); SGOT/AST 17 U/L (15-37); SGPT/ALT 50 U/L (12-78); TOT PROT 6.5 g/dl (6.4-8.2)
[2017-01-22 23:06] LABS: ALK PHOS 211 U/L (45-117)
[2017-01-22 23:13] LABS: CREATININE 8.1 mg/dL (0.55-1.02)
[2017-01-22] MEDS ORDERED: METOPROLOL TARTRATE 5 MG/5 ML VIAL IVPUSH ONE (23:44)
[2017-01-22] MEDS ORDERED: METOPROLOL TARTRATE 5 MG/5 ML VIAL ONE (23:45)
[2017-01-22] MEDS ORDERED: METOCLOPRAMIDE HCL INJECTION 10 MG/2 ML VIAL ONE (23:58)
[2017-01-23] MEDS: ANASTROZOLE 1 MG TABLET PO SCH ×3 (02:35→21:33)
[2017-01-23] MEDS: METOPROLOL SUCCINATE 25 MG TAB.SR.24H (FP) PO SCH ×5 (02:35→21:33)
[2017-01-23 03:56] LABS: TROPONIN I 5.6 ng/ml (0.00-0.05)
[2017-01-23] MEDS ORDERED: METOPROLOL TARTRATE 5 MG/5 ML VIAL IVPUSH PRN (07:45)
[2017-01-23] MEDS: SEVELAMER CARBONATE 800 MG TAB (FP) PO SCH ×3 (07:53→17:23)
[2017-01-23] MEDS: ASPIRIN 81 MG CHEWABLE TABLETS PO SCH (09:01)
[2017-01-23] MEDS: PANTOPRAZOLE 40 MG TABLET (FP) PO SCH (09:01)
[2017-01-23] MEDS: CINACALCET HCL 30 MG TAB (FP) PO SCH (09:01)
[2017-01-23] MEDS: CLOPIDOGREL BISULFATE 75 MG TABLET (FP) PO SCH (09:01)
--- NOTE | 2017-01-23 09:51 | PN ---
Progress Note, Physician History of Present Illness: Pt discharged 01/19, came back to ER yesterday and was admitted for continued productive cough, sob, Afib with RVR, elevated troponin. Pt seen and examined today in nad. states she came back to the ER for continued productive cough, some blood tinged sputum. She also noted continued L back/scapular pain which she reported on last admission. Pt missed HD yesterday because she came to the ER instead of going to HD. Cardiac enzymes were sent and pt noted to have an elevated troponin. Pt also noted to be in Afib with RVR on presentation. Currently pts only complaints is productive cough. denies any chest pain. no palpitations. no lightheadedness or dizziness. - Current Medication List Current Medications: Active Medications Anastrozole (Arimidex -) 1 mg PO HS [facility] Last Admin: 01/23/17 05:31 Dose: Not Given Aspirin (Asa -) 81 mg PO DAILY [facility] Last Admin: 01/23/17 09:01 Dose: 81 mg Atorvastatin Calcium (Lipitor -) 10 mg PO HS [facility] Cinacalcet (Sensipar -) 60 mg PO DAILY [facility] Last Admin: 01/23/17 09:01 Dose: 60 mg Clopidogrel Bisulfate (Plavix -) 75 mg PO DAILY [facility] Last Admin: 01/23/17 09:01 Dose: 75 mg Metoprolol Succinate (Toprol Xl -) 12.5 mg PO HS [facility] Last Admin: 01/23/17 05:31 Dose: Not Given Metoprolol Succinate (Toprol Xl -) 12.5 mg PO DAILY [facility] Last Admin: 01/23/17 09:00 Dose: Not Given Metoprolol Tartrate (Lopressor Injection -) 2.5 mg IVPUSH Q4H PRN PRN Reason: TACHYCARDIA Mometasone Furoate (Asmanex 220mcg -) 1 puff IH [facility] Montelukast Sodium (Singulair -) 10 mg PO HS [facility] Pantoprazole Sodium (Protonix -) 40 mg PO DAILY [facility] Last Admin: 01/23/17 09:01 Dose: 40 mg Sevelamer Carbonate (Renvela -) 2,400 mg PO TIDCM [facility] Last Admin: 01/23/17 07:53 Dose: 2,400 mg Tiotropium [place] (Spiriva -) 1 puff IH DAILY [facility] - Objective Vital Signs: Vital Signs Temperature 98.1 F 01/23/17 07:56 Pulse Rate 126 H 01/23/17 07:56 Respiratory Rate 20 01/23/17 07:56 Blood Pressure 135/87 01/23/17 07:56 O2 Sat by Pulse Oximetry (%) 99 01/23/17 02:28 Constitutional: Yes: No Distress, Calm Eyes: Yes: Conjunctiva Clear, EOM Intact, PERRL HENT: Yes: Atraumatic, Normocephalic Neck: Yes: Supple, Trachea Midline Cardiovascular: Yes: Tachycardia, Pulse Irregular, Murmur, S1, S2. No: Bradycardia, Bruit, JVD, Gallop, Rub, S3, S4, Varicosities Respiratory: Yes: Regular, Cough, Diminished, On Nasal O2, Rhonchi. No: SOB, Wheezes Gastrointestinal: Yes: Normal Bowel Sounds, Soft. No: Distention, Tenderness Edema: No Peripheral Pulses WNL: Yes Peripheral Pulses: Left Doralis Pedis: 2+, Right Dorsalis Pedis: 2+ Integumentary: Yes: WNL Neurological: Yes: Alert, Oriented Psychiatric: Yes: Alert, Oriented Labs: INR, PTT INR 1.16 (0.82-1.09) H 01/22/17 17:00 - ....Imaging Chest X-ray: Report Reviewed, Image Reviewed EKG: Report Reviewed, Image Reviewed (EKG-Afib 141bpm, LVH, ST depressions and T inversions V4, V5, V6, I, II, III, aVF) Other: Report Reviewed, Image Reviewed (tele-AFib with RVR) Assessment/Plan Continued Acute exacerbation COPD/bronchitis Paroxysmal afib with RVR Elevated troponin ESRD Moderate History of CAD, CABG, stents Prior severe GI bleed, not candidate for full AC Breast Ca s/p mastectomy, XRT and hormonal Rx ongoing REC: -Troponin trended up to 5.6 overnight with normal CK levels -most likely demand ischemia secondary to AFib with RVR -pt denies chest pain -trend cardiac enzymes and ekgs -rate control AFib, given Toprol XL 12.5mg this am, insufficient BP room to uptitrate -will avoid digoxin if possible given ESRD -if needed for further rate control will consider Amiodarone -cont telemetry monitoring -not candidate for full AC as above -cont ASA 81mg daily and Plavix for now -cont statin -f/up CTA chest results that was done yesterday -mildly volume overloaded, missed HD yesterday, nephrology contacted to schedule HD -tx of AE COPD as per Pulmonary -Outpatient f/u for , should have repeat echo in 12 months unless clinical change. -Left scapular pain, worse w/ movement and coughing- likely muscular, she was advised to discuss w/ oncology; has routine f/u scheduled, may require bone scan , can review CT chest that was done yesterday for any chest wall abnl
--- NOTE | 2017-01-23 12:17 | HP ---
Admitting History and Physical - Admission History of Present Illness: Pt is a 61 y/o morbidly obese female w/ PMH significant for ESRD on HD ( dialysis Tues, Thurs, Sat), breast cancer (s/p left breast mastectomy 04/2016), HTN, [place] (s/p CABG 2 stents), A-fib, aortic stenosis, CHF, GI bleed, and anxiety , Pt was recently dc'ed from [facility] after being treated for asthmatic bronchitis. However pt states at home that her cough has not improved. Cough is productive w/ greenish sputum. Pt denies any fever/chills. Pt also c/o worsening back. She reports the pain is located in her left upper back. She took two Tylenols with no significant relief. She reports she has had this pain since her mastectomy, but it acutely worsened today. She states she missed her dialysis today secondary to pain. - Past Medical History Cardiovascular: Yes: AFIB, Aortic Stenosis, CAD, CHF, HTN, Hyperlipdemia, [place], Pulmonary Hypertension Pulmonary: Yes: Asthma, COPD Gastrointestinal: Yes: GI Bleed (colitis, requiring transfusions), Other ( COLITIS ) Renal/: Yes: Renal Failure, Hemodialysis ...LMP: 12/11/10 Heme/Onc: Yes: Cancer (Recently diagnoses breast Cancer) Psych: Yes: Anxiety - Past Surgical History Past Surgical History: Yes: AV Fistula/Graft, CABG, Cholecystectomy, Stent - Smoking History Smoking history: Unknown if ever smoked Have you smoked in the past 12 months: Yes Aproximately how many cigarettes per day: 20 If you are a former smoker, when did you quit?: 4 MONTHS AGO - Alcohol/Substance Use Hx Alcohol Use: No - Social History ADL: Independent History of Recent Travel: No Home Medications - Allergies Allergies/Adverse Reactions: Allergies Allergy/AdvReac Type Severity Reaction Status Date / Time No Known Drug Allergies Allergy Verified 01/22/17 15:54 PLASTIC TAPE Allergy "RASH,ITCHY Uncoded 01/22/17 15:54 " - Home Medications Home Medications: Ambulatory Orders Aspirin [ASA -] 81 mg PO DAILY 12/04/15 Pravastatin Sodium [Pravachol -] 40 mg PO HS 12/04/15 Sevelamer Carbonate [Renvela -] 2,400 mg PO TID 12/04/15 Clopidogrel Bisulfate [Plavix -] 75 mg PO DAILY tablet 05/13/16 Anastrozole [Arimidex -] 1 mg PO HS 01/13/17 Cinacalcet HCl [Sensipar] 60 mg PO DAILY 01/13/17 Folic Acid/Vit Bcomp,C [Alysa-[place] Tablet] 0.8 mg PO DAILY 01/13/17 Metoprolol Succinate [Toprol XL -] 12.5 mg PO HS 01/13/17 Pantoprazole Sodium [Protonix] 40 mg PO DAILY 01/13/17 Atorvastatin Ca [Lipitor] 10 mg PO HS #30 tablet 01/19/17 Budesonide [Pulmicort Flexhaler] 90 mcg IH BID #1 aer.pow.ba 01/19/17 Cefuroxime Axetil [Ceftin -] 500 mg PO BID #14 tablet 01/19/17 Montelukast Na [Singulair -] 10 mg PO HS #30 tablet 01/19/17 Prednisone [Deltasone -] 20 mg PO BID #20 tablet 01/19/17 Tiotropium [place] [Spiriva] 1 puff IH DAILY #1 inh 01/19/17 Family Disease History - Family Disease History Family History: Unremarkable Review of Systems - Review of Systems Constitutional: reports: No Symptoms HENT: reports: No Symptoms Neck: reports: No Symptoms Cardiovascular: reports: No Symptoms Respiratory: reports: Cough Gastrointestinal: reports: No Symptoms Musculoskeletal: reports: Muscle Pain Physical Examination Vital Signs: Vital Signs Temperature 98.4 F 01/23/17 10:00 Pulse Rate 115 H 01/23/17 10:00 Respiratory Rate 20 01/23/17 10:00 Blood Pressure 122/80 01/23/17 10:00 O2 Sat by Pulse Oximetry (%) 97 01/23/17 10:00 Constitutional: Yes: Well Nourished HENT: Yes: WNL Neck: Yes: WNL, Supple Cardiovascular: Yes: Tachycardia Respiratory: Yes: WNL, Regular, CTA Bilaterally Gastrointestinal: Yes: WNL, Normal Bowel Sounds Musculoskeletal: Yes: WNL Extremities: Yes: WNL Edema: No Problem List - Problems (1) Elevated troponin Assessment/Plan: Probably due to demand ischemia Cont to trend troponin As per cardio consu Code(s): R74.8 - ABNORMAL LEVELS OF OTHER SERUM ENZYMES (2) Asthmatic bronchitis Assessment/Plan: IV solumedrol/ceftriaxone Pulmonary consult Code(s): J45.909 - UNSPECIFIED ASTHMA, UNCOMPLICATED (3) Chronic pain syndrome Assessment/Plan: Cont morphine Pain management consult Pt states that she cannot tolerate MrI due to claustrophobia Check CT scan T spine PT eval Code(s): G89.4 - CHRONIC PAIN SYNDROME (4) ESRD (end stage renal disease) on dialysis Code(s): N18.6 - END STAGE RENAL DISEASE Z99.2 - DEPENDENCE ON RENAL DIALYSIS (5) Asthma exacerbation Code(s): J45.901 - UNSPECIFIED ASTHMA WITH (ACUTE) EXACERBATION (6) Breast CA Code(s): C50.919 - MALIGNANT NEOPLASM OF UNSP SITE OF UNSPECIFIED FEMALE BREAST (7) HLD (hyperlipidemia) Code(s): E78.5 - HYPERLIPIDEMIA, UNSPECIFIED (8) HTN (hypertension) Code(s): I10 - ESSENTIAL (PRIMARY) HYPERTENSION (9) Hx of CABG Code(s): Z95.1 - PRESENCE OF AORTOCORONARY BYPASS GRAFT
[2017-01-23] MEDS: TIOTROPIUM BROMIDE 18 MCG/INH (DEVICE W/ 5 CAPSULES) IH SCH (12:56)
[2017-01-23] MEDS ORDERED: traMADol HCL 50 MG TABLET PO ONE (13:45)
--- NOTE | 2017-01-23 16:05 | EKG ---
Test Reason : Blood Pressure : / mmHG Vent. Rate : 139 BPM Atrial Rate : 147 BPM P-R Int : 000 ms QRS Dur : 114 ms QT Int : 274 ms P-R-T Axes : 000 054 244 degrees QTc Int : 416 ms SUPRAVENTRICULAR TACHYCARDIIA, MOST LIKELYATRIAL FIBRILLATION WITH RAPID RESPONSE VOLTAGE CRITERIA FOR LEFT VENTRICULAR HYPERTROPHY MARKED ST ABNORMALITY, POSSIBLE LATERAL SUBENDOCARDIAL INJURY ABNORMAL ECG WHEN COMPARED WITH ECG OF 22-JAN-2017 15:44, ATRIAL FIBRILLATION HAS REPLACED SINUS RHYTHM NO OTHER MAJOR CHANGE SEEN REPEAT EKG IF CLINICALLY INDICATED Confirmed by ADI ALVAREZ MD ([id number]) on 01/23/2017 4:05:16 PM Referred By: Confirmed By:ADI ALVAREZ MD
[2017-01-23] MEDS ORDERED: methylPREDNISolone NA SUCC 40 MG/1 ML VIAL IVPB SCH (21:00)
[2017-01-23] MEDS ORDERED: DEXTROSE 5%-WATER - 50 ML IVPB ONE (21:02)
[2017-01-23] MEDS ORDERED: cefTRIAXone SODIUM 1 GM VIAL ONE (21:02)
[2017-01-23] MEDS: morphine CARPU-JECT 2 MG/1 ML DISP.SYRIN IVPUSH PRN (21:07)
[2017-01-23] MEDS: CEFTRIAXONE 1 GM in DEXTROSE 5%-WATER - 50 ML IVPB SCH (21:16)
[2017-01-23] MEDS: methylPREDNISolone NA SUCC 40 MG/1 ML VIAL IVPB SCH (21:17)
[2017-01-23] MEDS: MONTELUKAST NA 10 MG TABLET PO SCH (21:32)
[2017-01-23] MEDS: ATORVASTATIN CA 10 MG TABLET (FP) PO SCH (21:32)
[2017-01-23] MEDS: guaiFENesin 200 MG/10 ML 10 ML UNIT-DOSE CUPS PO PRN (21:34)
[2017-01-23] MEDS: HEPARIN NA (PORCINE) 5,000 UNITS/ML 1ML VIAL SQ SCH (21:38)
[2017-01-23] MEDS ORDERED: PATIENT'S OWN MEDICATION (NON-FORMULARY) (Pravastatin Sodium 40 MG) PO SCH (22:00)
[2017-01-23] MEDS ORDERED: PT OWN MED DRAWER 7, Y5N ONE (22:52)
[2017-01-24] MEDS: MOMETASONE FUROATE 220 MCG/IH INHALER IH SCH ×2 (00:06→21:57)
[2017-01-24] MEDS: methylPREDNISolone NA SUCC 40 MG/1 ML VIAL IVPB SCH ×3 (02:52→17:20)
[2017-01-24] MEDS ORDERED: ACETAMINOPHEN 325 MG TABLET (FP) PO ONE (04:45)
[2017-01-24] MEDS: SEVELAMER CARBONATE 800 MG TAB (FP) PO SCH ×3 (08:15→17:19)
[2017-01-24] MEDS ORDERED: cefTRIAXone SODIUM 1 GM VIAL ONE (09:12)
[2017-01-24] MEDS ORDERED: DEXTROSE 5%-WATER - 50 ML IVPB ONE (09:13)
--- NOTE | 2017-01-24 10:34 | PN ---
Progress Note (short form) - Note Progress Note: RENAL 61 WITH ESRD LVDYSFUNCTION ADMITTED WITH CP AFIB WITH RVR ONLY ON METOPROLOL 12.5 Q HS FOR RATE CONTROL BACK ON SOLUMEDROL CT SHOWED INTERSTITIAL EDEMA NO FOCAL CONSOLIDATION DIALYZED YESTERDAY 2.5 KG REMOVED COUGH CONGESTED ALL MEDS REVIEWED CHEST MILD WHEEZE COUGH CONGESTED LEFT ARM AVG ABD SOFT EXT NO EDEMA HB 10.5 61 WITH LV DYSF ACTIVE SMOKER WILL DIALYZE IN AM TO KEEP ON TTS SCHEDULE
--- NOTE | 2017-01-24 11:36 | PN ---
Progress Note (short form) - Note Progress Note: PULMONARY CONSULTATION DICTATED 01/24/17 IMP ACUTE EXACERBATION COPD/BRONCHITIS ? CHF + TROPONINS LIKELY DEMAND ISCHEMIA LEFT POSTERIOR SCAPULAR PAIN H/O BREAST CA S/P MASTECTOMY ESRD ON HD HTN AFIB ASHD S/P CABG PLAN INHALED BRONCHODILATORS IV STEROIDS O2 HD PER RENAL ANALGESICS TREND TROPONINS F/U CHEST X-RAY ONCOLOGY CONSULT DR KAUR Problem List - Problems (1) Asthmatic bronchitis Code(s): J45.909 - UNSPECIFIED ASTHMA, UNCOMPLICATED (2) CAD (coronary artery disease) Code(s): I25.10 - ATHSCL HEART DISEASE OF [place] CORONARY ARTERY W/O ANG PCTRS Qualifiers: Coronary Disease-Associated Artery/Lesion type: unspecified vessel or lesion type [place] vs. transplanted heart: [place] heart Associated angina: without angina Qualified Code(s): I25.10 - Atherosclerotic heart disease of [place] coronary artery without angina pectoris; I25.10 - Atherosclerotic heart disease of [place] coronary artery without angina pectoris ; I25.10 - Atherosclerotic heart disease of [place] coronary artery without angina pectoris (3) Chronic pain syndrome Code(s): G89.4 - CHRONIC PAIN SYNDROME (4) ESRD (end stage renal disease) on dialysis Code(s): N18.6 - END STAGE RENAL DISEASE Z99.2 - DEPENDENCE ON RENAL DIALYSIS (5) Elevated troponin Code(s): R74.8 - ABNORMAL LEVELS OF OTHER SERUM ENZYMES (6) Renal failure Code(s): N19 - UNSPECIFIED KIDNEY FAILURE (7) Aortic stenosis Code(s): I35.0 - NONRHEUMATIC AORTIC (VALVE) STENOSIS (8) Atrial fibrillation Code(s): I48.91 - UNSPECIFIED ATRIAL FIBRILLATION Qualifiers: Atrial fibrillation type: paroxysmal Qualified Code(s): I48.0 - Paroxysmal atrial fibrillation; I48.0 - Paroxysmal atrial fibrillation; I48.0 - Paroxysmal atrial fibrillation; I48.0 - Paroxysmal atrial fibrillation (9) Breast CA Code(s): C50.919 - MALIGNANT NEOPLASM OF UNSP SITE OF UNSPECIFIED FEMALE BREAST (10) HTN (hypertension) Code(s): I10 - ESSENTIAL (PRIMARY) HYPERTENSION (11) Hx of CABG Code(s): Z95.1 - PRESENCE OF AORTOCORONARY BYPASS GRAFT (12) SOB (shortness of breath) Code(s): R06.02 - SHORTNESS OF BREATH (13) COPD exacerbation Code(s): J44.1 - CHRONIC OBSTRUCTIVE PULMONARY DISEASE W (ACUTE) EXACERBATION
[2017-01-24] MEDS: CLOPIDOGREL BISULFATE 75 MG TABLET (FP) PO SCH (11:38)
[2017-01-24] MEDS: HEPARIN NA (PORCINE) 5,000 UNITS/ML 1ML VIAL SQ SCH ×3 (11:38→21:58)
[2017-01-24] MEDS: ASPIRIN 81 MG CHEWABLE TABLETS PO SCH (11:38)
[2017-01-24] MEDS: PANTOPRAZOLE 40 MG TABLET (FP) PO SCH (11:38)
[2017-01-24] MEDS: CINACALCET HCL 30 MG TAB (FP) PO SCH (11:39)
[2017-01-24] MEDS: METOPROLOL SUCCINATE 25 MG TAB.SR.24H (FP) PO SCH ×2 (11:39→21:59)
[2017-01-24] MEDS: CEFTRIAXONE 1 GM in DEXTROSE 5%-WATER - 50 ML IVPB SCH (11:39)
--- NOTE | 2017-01-24 11:42 | PN ---
Progress Note, Physician History of Present Illness: seen and examined today in nad. states she is feeling slightly better today. cough slightly better. no overnight events. - Current Medication List Current Medications: Active Medications Anastrozole (Arimidex -) 1 mg PO HS COUNTS INCLUDE 234 BEDS AT THE [facility] Last Admin: 01/23/17 21:33 Dose: 1 mg Aspirin (Asa -) 81 mg PO DAILY COUNTS INCLUDE 234 BEDS AT THE [facility] Last Admin: 01/23/17 09:01 Dose: 81 mg Atorvastatin Calcium (Lipitor -) 10 mg PO HS COUNTS INCLUDE 234 BEDS AT THE [facility] Last Admin: 01/23/17 21:32 Dose: 10 mg Cinacalcet (Sensipar -) 60 mg PO DAILY COUNTS INCLUDE 234 BEDS AT THE [facility] Last Admin: 01/23/17 09:01 Dose: 60 mg Clopidogrel Bisulfate (Plavix -) 75 mg PO DAILY COUNTS INCLUDE 234 BEDS AT THE [facility] Last Admin: 01/23/17 09:01 Dose: 75 mg Guaifenesin (Robitussin -) 10 ml PO Q6H PRN PRN Reason: COUGH Last Admin: 01/23/17 21:34 Dose: 10 ml Heparin Sodium (Porcine) (Heparin -) 5,000 unit SQ BID COUNTS INCLUDE 234 BEDS AT THE [facility] Last Admin: 01/23/17 21:38 Dose: Not Given Ceftriaxone Sodium 1 gm/ (Dextrose) 50 mls @ 100 mls/hr IVPB DAILY COUNTS INCLUDE 234 BEDS AT THE [facility] Last Admin: 01/23/17 21:16 Dose: 100 mls/hr Methylprednisolone Sodium Succinate (Solu-Medrol -) 40 mg IVPB Q8H-IV COUNTS INCLUDE 234 BEDS AT THE [facility] Last Admin: 01/24/17 02:52 Dose: 40 mg Metoprolol Succinate (Toprol Xl -) 12.5 mg PO HS COUNTS INCLUDE 234 BEDS AT THE [facility] Last Admin: 01/23/17 21:33 Dose: 12.5 mg Metoprolol Succinate (Toprol Xl -) 12.5 mg PO DAILY COUNTS INCLUDE 234 BEDS AT THE [facility] Last Admin: 01/23/17 09:00 Dose: Not Given Metoprolol Tartrate (Lopressor Injection -) 2.5 mg IVPUSH Q4H PRN PRN Reason: TACHYCARDIA Mometasone Furoate (Asmanex 220mcg -) 1 puff [facility] Last Admin: 01/24/17 00:06 Dose: 1 puff Montelukast Sodium (Singulair -) 10 mg PO HS COUNTS INCLUDE 234 BEDS AT THE [facility] Last Admin: 01/23/17 21:32 Dose: 10 mg Morphine Sulfate (Morphine Injection -) 2 mg IVPUSH Q6H PRN PRN Reason: PAIN Last Admin: 01/23/17 21:07 Dose: 2 mg Pantoprazole Sodium (Protonix -) 40 mg PO DAILY COUNTS INCLUDE 234 BEDS AT THE [facility] Last Admin: 01/23/17 09:01 Dose: 40 mg Sevelamer Carbonate (Renvela -) 2,400 mg PO TIDCM COUNTS INCLUDE 234 BEDS AT THE [facility] Last Admin: 01/24/17 08:15 Dose: 2,400 mg Tiotropium [place] (Spiriva -) 1 puff IH DAILY COUNTS INCLUDE 234 BEDS AT THE [facility] Last Admin: 01/23/17 12:56 Dose: Not Given - Objective Vital Signs: Vital Signs Temperature 98.3 F 01/24/17 05:51 Pulse Rate 129 H 01/24/17 05:51 Respiratory Rate 20 01/24/17 05:51 Blood Pressure 106/66 01/24/17 05:51 O2 Sat by Pulse Oximetry (%) 100 01/23/17 21:00 Constitutional: Yes: No Distress, Calm, Obese Eyes: Yes: Conjunctiva Clear, EOM Intact, PERRL HENT: Yes: Atraumatic, Normocephalic Neck: Yes: Supple, Trachea Midline Cardiovascular: Yes: Pulse Irregular, Murmur, S1, S2. No: Bradycardia, Tachycardia, Bruit, JVD, Gallop, Rub, S3, S4, Varicosities Respiratory: Yes: Regular, Diminished, On Nasal O2, Rales. No: Rhonchi, SOB, Wheezes Gastrointestinal: Yes: Normal Bowel Sounds, Soft. No: Distention, Tenderness Edema: No Peripheral Pulses WNL: Yes Peripheral Pulses: Left Doralis Pedis: 2+, Right Dorsalis Pedis: 2+ Neurological: Yes: Alert, Oriented Psychiatric: Yes: Alert, Oriented Labs: INR, PTT INR 1.16 (0.82-1.09) H 01/22/17 17:00 - ....Imaging Chest X-ray: Report Reviewed, Image Reviewed EKG: Report Reviewed, Image Reviewed Other: Report Reviewed, Image Reviewed (tele-AFib, HR currently adequate, frequent episodes of RVR, PVCs) Assessment/Plan Continued Acute exacerbation COPD/bronchitis Paroxysmal afib with RVR Elevated troponin ESRD Moderate History of CAD, CABG, stents Prior severe GI bleed, not candidate for full AC Breast Ca s/p mastectomy, XRT and hormonal Rx ongoing REC: Elevated troponin-with normal CK most likely secondary to AFib with RVR and demand ischemia in setting of ESRD and missing a day of HD, HD done yesterday and planned today, f/up repeat cardiac enzymes today Afib with RVR-HR currently adequate but overall above goal with frequent episodes of RVR -there has been insufficient BP room to uptitrate meds -will change Toprol XL to 12.5mg bid and cont IV metoprolol prn -will avoid digoxin if possible given ESRD -if needed for further rate control will consider Amiodarone -cont telemetry monitoring -not candidate for full AC as above -cont ASA 81mg daily and Plavix for now CAD h/o CABG and stents -cont ASA 81mg daily and Plavix for now -cont statin -CTA chest showed no PE SOB -mildly volume overloaded, missed 1 session of HD, s/p HD yesterday and planned today -tx of AE COPD as per Pulmonary -Outpatient f/u for , should have repeat echo in 12 months unless clinical change. -Left scapular pain, worse w/ movement and coughing- likely muscular, she was advised to discuss w/ oncology; has routine f/u scheduled, may require bone scan , can review CT chest that was done yesterday for any chest wall abnl
--- NOTE | 2017-01-24 13:22 | CONS ---
DATE OF CONSULTATION: 01/24/2017 REFERRING PHYSICIAN: Rxoanne Philip MD HISTORY: The patient is a 61-year-old female known to me from previous hospitalization with past medical history of end-stage renal disease on hemodialysis 3 times with a history of breast cancer status post left mastectomy April 2016 , hypertension, ASHD status post VT, status post CABG as well as 2 stents, atrial fibrillation, aortic stenosis, CHF, GI bleed, anxiety recently hospitalized at [facility] secondary to COPD, asthmatic bronchitis. The patient was discharged on January 19 and returned to the ER on January 20. She was subsequently admitted with complaint of productive cough, two episodes of hemoptysis, and shortness of breath. She was also noted to be in atrial fibrillation with rapid ventricular response. Of note, the patient denied any fevers or chills. She has also complained of left posterior scapular pain, which apparently was in remission. The pain is not associated with movement and nonpleuritic. Of note, she states she missed hemodialysis the day prior to admission. Of note, the patient is noted on admission to have elevated troponin. She was evaluated by cardiology who felt that the patient most likely had demand ischemia. The patient has a history of tobacco use. Stopped approximately 20 days ago. She denies any history of occupational exposure to chemicals or fumes. There is no history of DVT or PE in the past. There is no history of recent travel. PAST MEDICAL HISTORY: Includes end-stage renal disease on hemodialysis, atrial fibrillation, ASHD status post CABG, status post stent, hypertension, history of breast cancer status post left mastectomy, aortic stenosis, CHF, and GI bleeding. REVIEW OF SYSTEMS: Positive cough, positive sputum, positive shortness of breath, positive orthopnea. Positive posterior chest pain. No abdominal pain. No lower extremity edema. MEDICATIONS: Include Solu-Medrol 40 q.8 hours, ceftriaxone, Asmanex, heparin, Spiriva, Arimidex, Toprol, Lopressor, Robitussin, Lipitor, Singulair, asthma, Sensipar, Renvela, Plavix, and Protonix. PHYSICAL EXAMINATION: General: The patient is a well-developed, well-nourished female awake and alert in no acute distress. Vital Signs: She is currently afebrile. Blood pressure 140/59, respiratory rate 20, O2 saturation 95% on 2 L. HEENT: Normocephalic and atraumatic. Neck: Supple. Heart: Irregularly irregular. Normal S1, S2. Chest: Scattered bilateral wheezes and rhonchi. Abdomen: Soft. Bowel sounds positive. Extremities: No cyanosis or edema. LABORATORIES: BUN 94, creatinine 8.1, troponin 5.6, CK 16, CK-MB 16. WBC 9.2, hemoglobin 10.5, hematocrit 32.3 with a platelet count of 181,000. INR 1.16. Blood gas not performed. Chest CT: There is no evidence of pulmonary emboli. No masses are appreciated. There is noted to be left subclavian ostial stenosis and severe stenosis along the proximal left subclavian artery. There is cardiomegaly. There are little hazy ground-glass opacities bilaterally. IMPRESSION: 1. Acute exacerbation of chronic obstructive pulmonary disease/bronchitis. 2. Positive troponins, likely demand ischemia. 3. Left posterior scapular pain, etiology to be determined. 4. History of breast cancer status post left mastectomy. 5. End-stage renal disease. PLAN: Hemodialysis as per Renal. IV steroids. Inhaled bronchodilators. Supplemental O2. Analgesics. Will get an Oncology consult. Trend cardiac enzymes. Telemetry monitoring. PFts as an outpatient. MATT KAUR M.D. WALTER/[id number] MTDD
[2017-01-24] MEDS: TIOTROPIUM BROMIDE 18 MCG/INH (DEVICE W/ 5 CAPSULES) IH SCH (13:27)
[2017-01-24] MEDS: BUDESONIDE/FORMETEROL FUMARATE 160/4.5 mcg INHALER IH SCH ×2 (13:28→21:58)
--- NOTE | 2017-01-24 17:33 | PN ---
Progress Note, Physician History of Present Illness: Pt still c/o Lt scapula pain - Current Medication List Current Medications: Active Medications Albuterol Sulfate (Ventolin 0.083% Nebulizer Soln -) 1 amp NEB Q4H PRN PRN Reason: SHORT OF BREATH/WHEEZING Anastrozole (Arimidex -) 1 mg PO HS [facility] Last Admin: 01/23/17 21:33 Dose: 1 mg Aspirin (Asa -) 81 mg PO DAILY [facility] Last Admin: 01/24/17 11:38 Dose: 81 mg Atorvastatin Calcium (Lipitor -) 10 mg PO HS [facility] Last Admin: 01/23/17 21:32 Dose: 10 mg Budesonide/Formoterol Fumarate (Symbicort 160/4.5mcg -) 2 puff IH BID [facility] Last Admin: 01/24/17 13:28 Dose: 2 inh Cinacalcet (Sensipar -) 60 mg PO DAILY [facility] Last Admin: 01/24/17 11:39 Dose: 60 mg Clopidogrel Bisulfate (Plavix -) 75 mg PO DAILY [facility] Last Admin: 01/24/17 11:38 Dose: 75 mg Guaifenesin (Robitussin -) 10 ml PO Q6H PRN PRN Reason: COUGH Last Admin: 01/23/17 21:34 Dose: 10 ml Heparin Sodium (Porcine) (Heparin -) 5,000 unit SQ BID [facility] Last Admin: 01/24/17 11:52 Dose: Not Given CEFTRIAXONE 1 G/50 ML PREMIX (Ceftriaxone 1 Gm-D5w Bag) 50 mls @ 100 mls/hr IVPB DAILY [facility] Stop: 01/29/17 10:29 Methylprednisolone Sodium Succinate (Solu-Medrol -) 40 mg IVPB Q8H-IV [facility] Last Admin: 01/24/17 17:20 Dose: 40 mg Metoprolol Succinate (Toprol Xl -) 12.5 mg PO BID [facility] Metoprolol Tartrate (Lopressor Injection -) 2.5 mg IVPUSH Q4H PRN PRN Reason: TACHYCARDIA Mometasone Furoate (Asmanex 220mcg -) 1 puff IH HS [facility] Last Admin: 01/24/17 00:06 Dose: 1 puff Montelukast Sodium (Singulair -) 10 mg PO HS [facility] Last Admin: 01/23/17 21:32 Dose: 10 mg Morphine Sulfate (Morphine Injection -) 2 mg IVPUSH Q6H PRN PRN Reason: PAIN Last Admin: 01/23/17 21:07 Dose: 2 mg Pantoprazole Sodium (Protonix -) 40 mg PO DAILY [facility] Last Admin: 01/24/17 11:38 Dose: 40 mg Sevelamer Carbonate (Renvela -) 2,400 mg PO TIDCM [facility] Last Admin: 01/24/17 17:19 Dose: 2,400 mg Tiotropium [place] (Spiriva -) 1 puff IH DAILY [facility] Last Admin: 01/24/17 13:27 Dose: 1 inh - Objective Vital Signs: Vital Signs Temperature 98.1 F 01/24/17 14:00 Pulse Rate 72 01/24/17 14:00 Respiratory Rate 20 01/24/17 14:00 Blood Pressure 128/85 01/24/17 14:00 O2 Sat by Pulse Oximetry (%) 98 01/24/17 10:00 Constitutional: Yes: Well Nourished HENT: Yes: WNL Neck: Yes: WNL, Supple Cardiovascular: Yes: Pulse Irregular Respiratory: Yes: WNL, Regular, CTA Bilaterally Gastrointestinal: Yes: WNL, Normal Bowel Sounds, Soft, Abdomen, Obese Labs: INR, PTT INR 1.16 (0.82-1.09) H 01/22/17 17:00 Problem List - Problems (1) Elevated troponin Assessment/Plan: Probably due to demand ischemia Cont to trend troponin As per cardio consu Code(s): R74.8 - ABNORMAL LEVELS OF OTHER SERUM ENZYMES (2) Asthmatic bronchitis Assessment/Plan: IV solumedrol/ceftriaxone Pulmonary consult Code(s): J45.909 - UNSPECIFIED ASTHMA, UNCOMPLICATED (3) Chronic pain syndrome Assessment/Plan: Cont morphine Pain management consult Pt states that she cannot tolerate MRI due to claustrophobia CT scan T spine showed osteosclerosis Cont morphine Check bone scan/xray shoulder Onco consult Code(s): G89.4 - CHRONIC PAIN SYNDROME (4) ESRD (end stage renal disease) on dialysis Assessment/Plan: Dialysis as per renal Code(s): N18.6 - END STAGE RENAL DISEASE Z99.2 - DEPENDENCE ON RENAL DIALYSIS (5) Breast CA Code(s): C50.919 - MALIGNANT NEOPLASM OF UNSP SITE OF UNSPECIFIED FEMALE BREAST (6) HLD (hyperlipidemia) Code(s): E78.5 - HYPERLIPIDEMIA, UNSPECIFIED (7) HTN (hypertension) Code(s): I10 - ESSENTIAL (PRIMARY) HYPERTENSION (8) Hx of CABG Code(s): Z95.1 - PRESENCE OF AORTOCORONARY BYPASS GRAFT
[2017-01-24] MEDS ORDERED: PT OWN MED DRAWER 7, Y5N ONE (21:45)
[2017-01-24] MEDS: ANASTROZOLE 1 MG TABLET PO SCH (21:58)
[2017-01-24] MEDS: ATORVASTATIN CA 10 MG TABLET (FP) PO SCH (21:58)
[2017-01-24] MEDS: MONTELUKAST NA 10 MG TABLET PO SCH (21:58)
--- NOTE | 2017-01-24 22:32 | CONSULT ---
Consult - text type - Consultation Consultation Note: The patient is a 61-year-old female with a significant past medical history of end-stage renal disease (dialysis , , Tue), breast cancer (s/p left breast mastectomy 01/2016), HTN, [place] (s/p CABG - triple bypass, 2 stents), A-fib , aortic stenosis, CHF, GI bleed, anxiety, and presents to the emergency department with worsening back pain since 2pm today. Patient was recently discharged this week from [facility] for bronchitis. She reports the pain is located in her left upper back, with mild radiation of pain to the chest. She took two Tylenols with no significant relief. She reports she has had this pain since her mastectomy, . She notes associated SOB. - Past Medical History Anemia: Yes Asthma: Yes Cardiac Disorders: Yes (BYPASS SX X3, 3STENTS) COPD: Yes Dialysis: Yes (,,TUE) GI Disorders: Yes (gerd) Disorders: Yes (esrd) HTN: Yes Hypercholesterolemia: Yes - Surgical History Cardiac Surgery: Yes (BYPASS SX X3 stent x 3) Cholecystectomy: Yes - Suicide/Smoking/Psychosocial Hx Smoking Status: Yes Allergies/Adverse Reactions: Allergies Allergy/AdvReac Type Severity Reaction Status Date / Time No Known Drug Allergies Allergy Verified 01/22/17 15:54 PLASTIC TAPE Allergy "RASH,ITCHY Uncoded 01/22/17 15:54 " Home Medications: Ambulatory Orders Aspirin [ASA -] 81 mg PO DAILY 12/04/15 Pravastatin Sodium [Pravachol -] 40 mg PO HS 12/04/15 Sevelamer Carbonate [Renvela -] 2,400 mg PO TID 12/04/15 Clopidogrel Bisulfate [Plavix -] 75 mg PO DAILY tablet 05/13/16 Anastrozole [Arimidex -] 1 mg PO HS 01/13/17 Cinacalcet HCl [Sensipar] 60 mg PO DAILY 01/13/17 Folic Acid/Vit Bcomp,C [[place] Tablet] 0.8 mg PO DAILY 01/13/17 Metoprolol Succinate [Toprol XL -] 12.5 mg PO HS 01/13/17 Pantoprazole Sodium [Protonix] 40 mg PO DAILY 01/13/17 Atorvastatin Ca [Lipitor] 10 mg PO HS #30 tablet 01/19/17 Budesonide [Pulmicort Flexhaler] 90 mcg IH BID #1 [email or web address] 01/19/17 Cefuroxime Axetil [Ceftin -] 500 mg PO BID #14 tablet 01/19/17 Montelukast Na [Singulair -] 10 mg PO HS #30 tablet 01/19/17 Prednisone [Deltasone -] 20 mg PO BID #20 tablet 01/19/17 Tiotropium [place] [Spiriva] 1 puff IH DAILY #1 inh 01/19/17 Active Medications Albuterol Sulfate (Ventolin 0.083% Nebulizer Soln -) 1 amp NEB Q4H PRN PRN Reason: SHORT OF BREATH/WHEEZING Anastrozole (Arimidex -) 1 mg PO HS [facility] Last Admin: 01/24/17 21:58 Dose: 1 mg Aspirin (Asa -) 81 mg PO DAILY [facility] Last Admin: 01/24/17 11:38 Dose: 81 mg Atorvastatin Calcium (Lipitor -) 10 mg PO HS [facility] Last Admin: 01/24/17 21:58 Dose: 10 mg Budesonide/Formoterol Fumarate (Symbicort 160/4.5mcg -) 2 puff IH BID [facility] Last Admin: 01/24/17 21:58 Dose: 1 inh Cinacalcet (Sensipar -) 60 mg PO DAILY [facility] Last Admin: 01/24/17 11:39 Dose: 60 mg Clopidogrel Bisulfate (Plavix -) 75 mg PO DAILY [facility] Last Admin: 01/24/17 11:38 Dose: 75 mg Guaifenesin (Robitussin -) 10 ml PO Q6H PRN PRN Reason: COUGH Last Admin: 01/25/17 00:45 Dose: 10 ml Heparin Sodium (Porcine) (Heparin -) 5,000 unit SQ BID [facility] Last Admin: 01/24/17 21:58 Dose: Not Given CEFTRIAXONE 1 G/50 ML PREMIX (Ceftriaxone 1 Gm-D5w Bag) 50 mls @ 100 mls/hr IVPB DAILY [facility] Stop: 01/29/17 10:29 Methylprednisolone Sodium Succinate (Solu-Medrol -) 40 mg IVPB Q8H-IV [facility] Last Admin: 01/25/17 01:49 Dose: 40 mg Metoprolol Succinate (Toprol Xl -) 12.5 mg PO BID [facility] Last Admin: 01/24/17 21:59 Dose: Not Given Metoprolol Tartrate (Lopressor Injection -) 2.5 mg IVPUSH Q4H PRN PRN Reason: TACHYCARDIA Mometasone Furoate (Asmanex 220mcg -) 1 puff IH HS [facility] Last Admin: 01/24/17 21:57 Dose: 1 puff Montelukast Sodium (Singulair -) 10 mg PO HS [facility] Last Admin: 01/24/17 21:58 Dose: 10 mg Morphine Sulfate (Morphine Injection -) 2 mg IVPUSH Q6H PRN PRN Reason: PAIN Last Admin: 01/25/17 00:44 Dose: 2 mg Pantoprazole Sodium (Protonix -) 40 mg PO DAILY [facility] Last Admin: 01/24/17 11:38 Dose: 40 mg Sevelamer Carbonate (Renvela -) 2,400 mg PO TIDCM [facility] Last Admin: 01/24/17 17:19 Dose: 2,400 mg Tiotropium [place] (Spiriva -) 1 puff IH DAILY [facility] Last Admin: 01/24/17 13:27 Dose: 1 inh - Vital Signs AFVSS Cor: RSR, No murmurs, No gallops Lungs: decreased breath sounds at bases Abd: Soft, Normal bowel sounds, No organomegaly Ext:No significant edema Skin: No rashes, Integument intact Labs/meds reviewed A/P 61 y/o female with multiple comorbidities COPD/ESRD/CABG/AFib/CHF/Anxiety, h/o breast cancer on arimidex comes in with Lt. scapular pain, shortness of breath Being treated for CHF/COPD On ASA/plavix CTA of chest shows no e/o PE, shows interstitial edema CT tspine--diffuse osteosclerosis due to ESRD? Breast cancer--s/p mastectomy/RT left 1 yr. ago. On arimidex Lt. scapular pain--non obvious etiology on CT scans refusing bone scan pain consult continue arimidex
[2017-01-25] MEDS: morphine CARPU-JECT 2 MG/1 ML DISP.SYRIN IVPUSH PRN (00:44)
[2017-01-25] MEDS: guaiFENesin 200 MG/10 ML 10 ML UNIT-DOSE CUPS PO PRN (00:45)
[2017-01-25] MEDS: methylPREDNISolone NA SUCC 40 MG/1 ML VIAL IVPB SCH ×3 (01:49→17:35)
[2017-01-25] MEDS: SEVELAMER CARBONATE 800 MG TAB (FP) PO SCH ×3 (08:44→17:35)
--- NOTE | 2017-01-25 09:10 | PN ---
Progress Note, Physician Chief Complaint: sitting up, alert No distress TELE: NSR, NSST changes. One short self limited episode NSVT - Current Medication List Current Medications: Active Medications Albuterol Sulfate (Ventolin 0.083% Nebulizer Soln -) 1 amp NEB Q4H PRN PRN Reason: SHORT OF BREATH/WHEEZING Anastrozole (Arimidex -) 1 mg PO HS [facility] Last Admin: 01/24/17 21:58 Dose: 1 mg Aspirin (Asa -) 81 mg PO DAILY [facility] Last Admin: 01/24/17 11:38 Dose: 81 mg Atorvastatin Calcium (Lipitor -) 10 mg PO HS [facility] Last Admin: 01/24/17 21:58 Dose: 10 mg Budesonide/Formoterol Fumarate (Symbicort 160/4.5mcg -) 2 puff IH BID [facility] Last Admin: 01/24/17 21:58 Dose: 1 inh Cinacalcet (Sensipar -) 60 mg PO DAILY [facility] Last Admin: 01/24/17 11:39 Dose: 60 mg Clopidogrel Bisulfate (Plavix -) 75 mg PO DAILY [facility] Last Admin: 01/24/17 11:38 Dose: 75 mg Guaifenesin (Robitussin -) 10 ml PO Q6H PRN PRN Reason: COUGH Last Admin: 01/25/17 00:45 Dose: 10 ml Heparin Sodium (Porcine) (Heparin -) 5,000 unit SQ BID [facility] Last Admin: 01/24/17 21:58 Dose: Not Given CEFTRIAXONE 1 G/50 ML PREMIX (Ceftriaxone 1 Gm-D5w Bag) 50 mls @ 100 mls/hr IVPB DAILY [facility] Stop: 01/29/17 10:29 Methylprednisolone Sodium Succinate (Solu-Medrol -) 40 mg IVPB Q8H-IV [facility] Last Admin: 01/25/17 01:49 Dose: 40 mg Metoprolol Succinate (Toprol Xl -) 12.5 mg PO BID [facility] Last Admin: 01/24/17 21:59 Dose: Not Given Metoprolol Tartrate (Lopressor Injection -) 2.5 mg IVPUSH Q4H PRN PRN Reason: TACHYCARDIA Mometasone Furoate (Asmanex 220mcg -) 1 puff IH HS [facility] Last Admin: 01/24/17 21:57 Dose: 1 puff Montelukast Sodium (Singulair -) 10 mg PO HS [facility] Last Admin: 01/24/17 21:58 Dose: 10 mg Morphine Sulfate (Morphine Injection -) 2 mg IVPUSH Q6H PRN PRN Reason: PAIN Last Admin: 01/25/17 00:44 Dose: 2 mg Pantoprazole Sodium (Protonix -) 40 mg PO DAILY [facility] Last Admin: 01/24/17 11:38 Dose: 40 mg Sevelamer Carbonate (Renvela -) 2,400 mg PO TIDCM [facility] Last Admin: 01/25/17 08:44 Dose: 2,400 mg Tiotropium [place] (Spiriva -) 1 puff IH DAILY [facility] Last Admin: 01/24/17 13:27 Dose: 1 inh - Objective Vital Signs: Vital Signs Temperature 98.1 F 01/25/17 08:05 Pulse Rate 78 01/25/17 08:05 Respiratory Rate 20 01/25/17 08:05 Blood Pressure 123/59 01/25/17 08:05 O2 Sat by Pulse Oximetry (%) 97 01/24/17 21:00 Constitutional: Yes: No Distress Cardiovascular: Yes: Regular Rate and Rhythm Respiratory: Yes: Other (scattered rhonchi) Gastrointestinal: Yes: Soft Edema: Yes Edema: LLE: 1+, RLE: 1+ Neurological: Yes: Alert, Oriented Labs: INR, PTT INR 1.16 (0.82-1.09) H 01/22/17 17:00 - ....Imaging EKG: Image Reviewed Assessment/Plan Assessment/Plan Continued Acute exacerbation COPD/bronchitis Paroxysmal afib with RVR Elevated troponin ESRD Moderate History of CAD, CABG, stents Prior severe GI bleed, not candidate for full AC Breast Ca s/p mastectomy, XRT and hormonal Rx ongoing REC: Elevated troponin-with normal CK most likely secondary to AFib with RVR and demand ischemia in setting of ESRD and missing a day of HD Afib with RVR on admission, now in sinus. -cont current meds -if needed for further rate control will consider Amiodarone -cont telemetry monitoring -not candidate for full AC as above -cont ASA 81mg daily and Plavix for now CAD h/o CABG and stents -cont ASA 81mg daily and Plavix for now -cont statin -CTA chest showed no PE SOB -mildly volume overloaded, missed 1 session of HD, now seems more euvolemic -tx of AE COPD as per Pulmonary -Outpatient f/u for , should have repeat echo in 12 months unless clinical change. - Left scapular pain: worse w/ movement and coughing- likely muscular, she was advised to discuss w/ oncology; has routine f/u scheduled, may require bone scan
--- NOTE | 2017-01-25 10:26 | PN ---
Progress Note, Physician History of Present Illness: pulmonary no change still dyspneic,+cough - Current Medication List Current Medications: Active Medications Albuterol Sulfate (Ventolin 0.083% Nebulizer Soln -) 1 amp NEB Q4H PRN PRN Reason: SHORT OF BREATH/WHEEZING Anastrozole (Arimidex -) 1 mg PO HS [facility] Last Admin: 01/24/17 21:58 Dose: 1 mg Aspirin (Asa -) 81 mg PO DAILY [facility] Last Admin: 01/24/17 11:38 Dose: 81 mg Atorvastatin Calcium (Lipitor -) 10 mg PO HS [facility] Last Admin: 01/24/17 21:58 Dose: 10 mg Budesonide/Formoterol Fumarate (Symbicort 160/4.5mcg -) 2 puff IH BID [facility] Last Admin: 01/24/17 21:58 Dose: 1 inh Cinacalcet (Sensipar -) 60 mg PO DAILY [facility] Last Admin: 01/24/17 11:39 Dose: 60 mg Clopidogrel Bisulfate (Plavix -) 75 mg PO DAILY [facility] Last Admin: 01/24/17 11:38 Dose: 75 mg Guaifenesin (Robitussin -) 10 ml PO Q6H PRN PRN Reason: COUGH Last Admin: 01/25/17 00:45 Dose: 10 ml Heparin Sodium (Porcine) (Heparin -) 5,000 unit SQ BID [facility] Last Admin: 01/24/17 21:58 Dose: Not Given CEFTRIAXONE 1 G/50 ML PREMIX (Ceftriaxone 1 Gm-D5w Bag) 50 mls @ 100 mls/hr IVPB DAILY [facility] Stop: 01/29/17 10:29 Methylprednisolone Sodium Succinate (Solu-Medrol -) 40 mg IVPB Q8H-IV [facility] Last Admin: 01/25/17 01:49 Dose: 40 mg Metoprolol Succinate (Toprol Xl -) 12.5 mg PO BID [facility] Last Admin: 01/24/17 21:59 Dose: Not Given Metoprolol Tartrate (Lopressor Injection -) 2.5 mg IVPUSH Q4H PRN PRN Reason: TACHYCARDIA Mometasone Furoate (Asmanex 220mcg -) 1 puff IH HS [facility] Last Admin: 01/24/17 21:57 Dose: 1 puff Montelukast Sodium (Singulair -) 10 mg PO HS [facility] Last Admin: 01/24/17 21:58 Dose: 10 mg Morphine Sulfate (Morphine Injection -) 2 mg IVPUSH Q6H PRN PRN Reason: PAIN Last Admin: 01/25/17 00:44 Dose: 2 mg Pantoprazole Sodium (Protonix -) 40 mg PO DAILY [facility] Last Admin: 01/24/17 11:38 Dose: 40 mg Sevelamer Carbonate (Renvela -) 2,400 mg PO TIDCM [facility] Last Admin: 01/25/17 08:44 Dose: 2,400 mg Tiotropium [place] (Spiriva -) 1 puff IH DAILY [facility] Last Admin: 01/24/17 13:27 Dose: 1 inh - Objective Vital Signs: Vital Signs Temperature 98.1 F 01/25/17 08:05 Pulse Rate 78 01/25/17 08:05 Respiratory Rate 20 01/25/17 08:05 Blood Pressure 123/59 01/25/17 08:05 O2 Sat by Pulse Oximetry (%) 97 01/24/17 21:00 Constitutional: Yes: Well Nourished, Calm Eyes: Yes: WNL HENT: Yes: WNL Neck: Yes: WNL Cardiovascular: Yes: Pulse Irregular, S1, S2 Respiratory: Yes: Rhonchi ([place] wheezes and rhonchi), Wheezes Gastrointestinal: Yes: Normal Bowel Sounds, Soft Extremities: Yes: WNL Edema: Yes Labs: INR, PTT INR 1.16 (0.82-1.09) H 01/22/17 17:00 Problem List - Problems (1) Asthmatic bronchitis Code(s): J45.909 - UNSPECIFIED ASTHMA, UNCOMPLICATED (2) CAD (coronary artery disease) Code(s): I25.10 - ATHSCL HEART DISEASE OF [place] CORONARY ARTERY W/O ANG PCTRS Qualifiers: Qualified Code(s): I25.10 - Atherosclerotic heart disease of [place] coronary artery without angina pectoris; I25.10 - Atherosclerotic heart disease of [place] coronary artery without angina pectoris; I25.10 - Atherosclerotic heart disease of [place] coronary artery without angina pectoris (3) Chronic pain syndrome Code(s): G89.4 - CHRONIC PAIN SYNDROME (4) ESRD (end stage renal disease) on dialysis Code(s): N18.6 - END STAGE RENAL DISEASE Z99.2 - DEPENDENCE ON RENAL DIALYSIS (5) Elevated troponin Code(s): R74.8 - ABNORMAL LEVELS OF OTHER SERUM ENZYMES (6) Renal failure Code(s): N19 - UNSPECIFIED KIDNEY FAILURE (7) Aortic stenosis Code(s): I35.0 - NONRHEUMATIC AORTIC (VALVE) STENOSIS (8) Atrial fibrillation Code(s): I48.91 - UNSPECIFIED ATRIAL FIBRILLATION Qualifiers: Qualified Code(s): I48.0 - Paroxysmal atrial fibrillation; I48.0 - Paroxysmal atrial fibrillation; I48.0 - Paroxysmal atrial fibrillation; I48.0 - Paroxysmal atrial fibrillation (9) Breast CA Code(s): C50.919 - MALIGNANT NEOPLASM OF UNSP SITE OF UNSPECIFIED FEMALE BREAST (10) HTN (hypertension) Code(s): I10 - ESSENTIAL (PRIMARY) HYPERTENSION (11) Hx of CABG Code(s): Z95.1 - PRESENCE OF AORTOCORONARY BYPASS GRAFT (12) SOB (shortness of breath) Code(s): R06.02 - SHORTNESS OF BREATH (13) COPD exacerbation Code(s): J44.1 - CHRONIC OBSTRUCTIVE PULMONARY DISEASE W (ACUTE) EXACERBATION Assessment/Plan IMP ACUTE EXACERBATION COPD/BRONCHITIS ? CHF + TROPONINS LIKELY DEMAND ISCHEMIA LEFT POSTERIOR SCAPULAR PAIN H/O BREAST CA S/P MASTECTOMY ESRD ON HD HTN AFIB ASHD S/P CABG PLAN INHALED BRONCHODILATORS IV STEROIDS SAME DOSE O2 HD PER RENAL ANALGESICS TREND TROPONINS F/U CHEST X-RAY DR KAUR Problem List - Problems (1) Asthmatic bronchitis Code(s): J45.909 - UNSPECIFIED ASTHMA, UNCOMPLICATED (2) CAD (coronary artery disease) Code(s): I25.10 - ATHSCL HEART DISEASE OF [place] CORONARY ARTERY W/O ANG PCTRS Qualifiers: Coronary Disease-Associated Artery/Lesion type: unspecified vessel or lesion type [place] vs. transplanted heart: [place] heart Associated angina: without angina Qualified Code(s): I25.10 - Atherosclerotic heart disease of [place] coronary artery without angina pectoris; I25.10 - Atherosclerotic heart disease of [place] coronary artery without angina pectoris ; I25.10 - Atherosclerotic heart disease of [place] coronary artery without angina pectoris (3) Chronic pain syndrome Code(s): G89.4 - CHRONIC PAIN SYNDROME (4) ESRD (end stage renal disease) on dialysis Code(s): N18.6 - END STAGE RENAL DISEASE Z99.2 - DEPENDENCE ON RENAL DIALYSIS (5) Elevated troponin Code(s): R74.8 - ABNORMAL LEVELS OF OTHER SERUM ENZYMES (6) Renal failure Code(s): N19 - UNSPECIFIED KIDNEY FAILURE (7) Aortic stenosis Code(s): I35.0 - NONRHEUMATIC AORTIC (VALVE) STENOSIS (8) Atrial fibrillation Code(s): I48.91 - UNSPECIFIED ATRIAL FIBRILLATION Qualifiers: Atrial fibrillation type: paroxysmal Qualified Code(s): I48.0 - Paroxysmal atrial fibrillation; I48.0 - Paroxysmal atrial fibrillation; I48.0 - Paroxysmal atrial fibrillation; I48.0 - Paroxysmal atrial fibrillation (9) Breast CA Code(s): C50.919 - MALIGNANT NEOPLASM OF UNSP SITE OF UNSPECIFIED FEMALE BREAST (10) HTN (hypertension) Code(s): I10 - ESSENTIAL (PRIMARY) HYPERTENSION (11) Hx of CABG Code(s): Z95.1 - PRESENCE OF AORTOCORONARY BYPASS GRAFT (12) SOB (shortness of breath) Code(s): R06.02 - SHORTNESS OF BREATH (13) COPD exacerbation Code(s): J44.1 - CHRONIC OBSTRUCTIVE PULMONARY DISEASE W (ACUTE) EXACERBATION
[2017-01-25 11:49] LABS: BASOPHIL 0.2 % (0-2.0); MCH 37.7 pg (25.7-33.7); MCHC 34.1 g/dl (32.0-36.0); MEAN CELL VOLUME 110.6 fl (80-96); MEAN PLT VOLUME 9.5 fl (7.5-11.1); NEUTROPHILS 93.2 % (42.8-82.8); PLATELET COUNT 172 K/MM3 (134-434); WHITE BLOOD COUNT 10.1 K/mm3 (4.0-10.0)
[2017-01-25 12:23] LABS: ALBUMIN 2.9 g/dl (3.4-5.0); ALK PHOS 210 U/L (45-117); ANION GAP 16 (8-16); BILIRUBIN,TOTAL 0.4 mg/dL (0.2-1.0); CALCIUM 7.2 mg/dL (8.5-10.1); CO2 25 mmol/L (21-32); GLUCOSE,RANDOM 214 mg/dL (74-106); SGOT/AST 40 U/L (15-37); SGPT/ALT 53 U/L (12-78)
[2017-01-25 12:29] LABS: CREATININE 7.9 mg/dL (0.55-1.02)
[2017-01-25 12:31] LABS: ANISOCYTOSIS 1+; HYPOCHROMIA 1+; MICROCYTOSIS 1+; PLATELET ESTIMATE ADEQUATE (NORMAL); POLYCHROMASIA F
[2017-01-25] MEDS: CINACALCET HCL 30 MG TAB (FP) PO SCH (15:13)
[2017-01-25] MEDS: HEPARIN NA (PORCINE) 5,000 UNITS/ML 1ML VIAL SQ SCH ×2 (15:14→21:42)
[2017-01-25] MEDS: ASPIRIN 81 MG CHEWABLE TABLETS PO SCH (15:14)
[2017-01-25] MEDS: CLOPIDOGREL BISULFATE 75 MG TABLET (FP) PO SCH (15:14)
[2017-01-25] MEDS: METOPROLOL SUCCINATE 25 MG TAB.SR.24H (FP) PO SCH ×2 (15:15→21:42)
[2017-01-25] MEDS: PANTOPRAZOLE 40 MG TABLET (FP) PO SCH (15:15)
[2017-01-25] MEDS: CEFTRIAXONE 1 G/50 ML PREMIX 50 ML IVPB SCH (15:16)
[2017-01-25] MEDS: TIOTROPIUM BROMIDE 18 MCG/INH (DEVICE W/ 5 CAPSULES) IH SCH (15:16)
[2017-01-25] MEDS: BUDESONIDE/FORMETEROL FUMARATE 160/4.5 mcg INHALER IH SCH ×2 (15:16→21:46)
--- NOTE | 2017-01-25 20:18 | PN ---
Progress Note, Physician History of Present Illness: Pt feels that she cannot go home until lt scapula pain is resolved - Current Medication List Current Medications: Active Medications Albuterol Sulfate (Ventolin 0.083% Nebulizer Soln -) 1 amp NEB Q4H PRN PRN Reason: SHORT OF BREATH/WHEEZING Anastrozole (Arimidex -) 1 mg PO HS [facility] Last Admin: 01/24/17 21:58 Dose: 1 mg Aspirin (Asa -) 81 mg PO DAILY [facility] Last Admin: 01/25/17 15:14 Dose: 81 mg Atorvastatin Calcium (Lipitor -) 10 mg PO HS [facility] Last Admin: 01/24/17 21:58 Dose: 10 mg Budesonide/Formoterol Fumarate (Symbicort 160/4.5mcg -) 2 puff IH BID [facility] Last Admin: 01/25/17 15:16 Dose: 2 inh Cinacalcet (Sensipar -) 60 mg PO DAILY [facility] Last Admin: 01/25/17 15:13 Dose: 60 mg Clopidogrel Bisulfate (Plavix -) 75 mg PO DAILY [facility] Last Admin: 01/25/17 15:14 Dose: 75 mg Guaifenesin (Robitussin -) 10 ml PO Q6H PRN PRN Reason: COUGH Last Admin: 01/25/17 00:45 Dose: 10 ml Heparin Sodium (Porcine) (Heparin -) 5,000 unit SQ BID [facility] Last Admin: 01/25/17 15:14 Dose: 5,000 unit CEFTRIAXONE 1 G/50 ML PREMIX (Ceftriaxone 1 Gm-D5w Bag) 50 mls @ 100 mls/hr IVPB DAILY [facility] Stop: 01/29/17 10:29 Last Admin: 01/25/17 15:16 Dose: 100 mls/hr Methylprednisolone Sodium Succinate (Solu-Medrol -) 40 mg IVPB Q8H-IV [facility] Last Admin: 01/25/17 17:35 Dose: 40 mg Metoprolol Succinate (Toprol Xl -) 12.5 mg PO BID [facility] Last Admin: 01/25/17 15:15 Dose: 12.5 mg Metoprolol Tartrate (Lopressor Injection -) 2.5 mg IVPUSH Q4H PRN PRN Reason: TACHYCARDIA Mometasone Furoate (Asmanex 220mcg -) 1 puff IH HS [facility] Last Admin: 01/24/17 21:57 Dose: 1 puff Montelukast Sodium (Singulair -) 10 mg PO HS [facility] Last Admin: 01/24/17 21:58 Dose: 10 mg Morphine Sulfate (Morphine Injection -) 2 mg IVPUSH Q6H PRN PRN Reason: PAIN Last Admin: 01/25/17 00:44 Dose: 2 mg Pantoprazole Sodium (Protonix -) 40 mg PO DAILY [facility] Last Admin: 01/25/17 15:15 Dose: 40 mg Sevelamer Carbonate (Renvela -) 2,400 mg PO TIDCM [facility] Last Admin: 01/25/17 17:35 Dose: 2,400 mg Tiotropium [place] (Spiriva -) 1 puff IH DAILY [facility] Last Admin: 01/25/17 15:16 Dose: 1 inh - Objective Vital Signs: Vital Signs Temperature 99.2 F 01/25/17 17:00 Pulse Rate 76 01/25/17 17:00 Respiratory Rate 20 01/25/17 17:00 Blood Pressure 138/67 01/25/17 17:00 O2 Sat by Pulse Oximetry (%) 98 01/25/17 10:06 Constitutional: Yes: Well Nourished HENT: Yes: WNL Neck: Yes: WNL Cardiovascular: Yes: WNL, Regular Rate and Rhythm Respiratory: Yes: Diminished, Wheezes Gastrointestinal: Yes: WNL, Normal Bowel Sounds, Soft, Abdomen, Obese Labs: CBC, BMP 01/25/17 11:00 01/25/17 11:00 INR, PTT INR 1.16 (0.82-1.09) H 01/22/17 17:00 Problem List - Problems (1) Asthmatic bronchitis Assessment/Plan: Pt still requiring same dose of IV solumedrol DC ceftriaxone and start ceftin Code(s): J45.909 - UNSPECIFIED ASTHMA, UNCOMPLICATED (2) Chronic pain syndrome Assessment/Plan: Cont morphine Pain management consult Pt states that she cannot tolerate MRI due to claustrophobia CT scan T spine showed osteosclerosis Cont morphine Check bone scan/xray shoulder Onco consult/ortho consult Code(s): G89.4 - CHRONIC PAIN SYNDROME (3) Elevated troponin Assessment/Plan: Probably due to demand ischemia Cont to trend troponin As per cardio consu Code(s): R74.8 - ABNORMAL LEVELS OF OTHER SERUM ENZYMES (4) ESRD (end stage renal disease) on dialysis Assessment/Plan: Dialysis as per renal Code(s): N18.6 - END STAGE RENAL DISEASE Z99.2 - DEPENDENCE ON RENAL DIALYSIS (5) Breast CA Assessment/Plan: Onco consult Code(s): C50.919 - MALIGNANT NEOPLASM OF UNSP SITE OF UNSPECIFIED FEMALE BREAST (6) HLD (hyperlipidemia) Code(s): E78.5 - HYPERLIPIDEMIA, UNSPECIFIED (7) HTN (hypertension) Code(s): I10 - ESSENTIAL (PRIMARY) HYPERTENSION (8) Hx of CABG Code(s): Z95.1 - PRESENCE OF AORTOCORONARY BYPASS GRAFT
[2017-01-25] MEDS: ANASTROZOLE 1 MG TABLET PO SCH (21:42)
[2017-01-25] MEDS: MONTELUKAST NA 10 MG TABLET PO SCH (21:42)
[2017-01-25] MEDS: ATORVASTATIN CA 10 MG TABLET (FP) PO SCH (21:42)
[2017-01-25] MEDS: MOMETASONE FUROATE 220 MCG/IH INHALER IH SCH (21:46)
[2017-01-26] MEDS: methylPREDNISolone NA SUCC 40 MG/1 ML VIAL IVPB SCH ×3 (02:20→22:18)
[2017-01-26] MEDS: SEVELAMER CARBONATE 800 MG TAB (FP) PO SCH ×3 (07:55→17:07)
--- NOTE | 2017-01-26 09:04 | PN ---
Progress Note, Physician History of Present Illness: seen and examined today in nad. down in bone scan. states she is still coughing and sob. otherwise no new complaints. - Current Medication List Current Medications: Active Medications Albuterol Sulfate (Ventolin 0.083% Nebulizer Soln -) 1 amp NEB Q4H PRN PRN Reason: SHORT OF BREATH/WHEEZING Anastrozole (Arimidex -) 1 mg PO HS [facility] Last Admin: 01/25/17 21:42 Dose: 1 mg Aspirin (Asa -) 81 mg PO DAILY [facility] Last Admin: 01/25/17 15:14 Dose: 81 mg Atorvastatin Calcium (Lipitor -) 10 mg PO HS [facility] Last Admin: 01/25/17 21:42 Dose: 10 mg Budesonide/Formoterol Fumarate (Symbicort 160/4.5mcg -) 2 puff IH BID [facility] Last Admin: 01/25/17 21:46 Dose: 2 inh Cinacalcet (Sensipar -) 60 mg PO DAILY [facility] Last Admin: 01/25/17 15:13 Dose: 60 mg Clopidogrel Bisulfate (Plavix -) 75 mg PO DAILY [facility] Last Admin: 01/25/17 15:14 Dose: 75 mg Guaifenesin (Robitussin -) 10 ml PO Q6H PRN PRN Reason: COUGH Last Admin: 01/25/17 00:45 Dose: 10 ml Heparin Sodium (Porcine) (Heparin -) 5,000 unit SQ BID [facility] Last Admin: 01/25/17 21:42 Dose: Not Given CEFTRIAXONE 1 G/50 ML PREMIX (Ceftriaxone 1 Gm-D5w Bag) 50 mls @ 100 mls/hr IVPB DAILY [facility] Stop: 01/29/17 10:29 Last Admin: 01/25/17 15:16 Dose: 100 mls/hr Methylprednisolone Sodium Succinate (Solu-Medrol -) 40 mg IVPB Q8H-IV [facility] Last Admin: 01/26/17 02:20 Dose: 40 mg Metoprolol Succinate (Toprol Xl -) 12.5 mg PO BID [facility] Last Admin: 01/25/17 21:42 Dose: 12.5 mg Metoprolol Tartrate (Lopressor Injection -) 2.5 mg IVPUSH Q4H PRN PRN Reason: TACHYCARDIA Mometasone Furoate (Asmanex 220mcg -) 1 puff IH HS [facility] Last Admin: 01/25/17 21:46 Dose: 1 puff Montelukast Sodium (Singulair -) 10 mg PO HS [facility] Last Admin: 01/25/17 21:42 Dose: 10 mg Morphine Sulfate (Morphine Injection -) 2 mg IVPUSH Q6H PRN PRN Reason: PAIN Last Admin: 01/25/17 00:44 Dose: 2 mg Pantoprazole Sodium (Protonix -) 40 mg PO DAILY [facility] Last Admin: 01/25/17 15:15 Dose: 40 mg Sevelamer Carbonate (Renvela -) 2,400 mg PO TIDCM [facility] Last Admin: 01/26/17 07:55 Dose: 2,400 mg Tiotropium [place] (Spiriva -) 1 puff IH DAILY [facility] Last Admin: 01/25/17 15:16 Dose: 1 inh - Objective Vital Signs: Vital Signs Temperature 98.5 F 01/26/17 07:56 Pulse Rate 60 01/26/17 07:56 Respiratory Rate 18 01/26/17 07:56 Blood Pressure 107/51 01/26/17 07:56 O2 Sat by Pulse Oximetry (%) 98 01/26/17 06:00 Constitutional: Yes: No Distress, Calm, Obese Eyes: Yes: Conjunctiva Clear, EOM Intact HENT: Yes: Atraumatic, Normocephalic Neck: Yes: Supple, Trachea Midline Cardiovascular: Yes: Regular Rate and Rhythm, Murmur, S1, S2. No: Bradycardia, Tachycardia, Pulse Irregular, Bruit, JVD, Gallop, Rub, S3, S4, Varicosities Respiratory: Yes: Regular, Diminished, Wheezes. No: Rales, Rhonchi, SOB Gastrointestinal: Yes: Normal Bowel Sounds, Soft. No: Distention, Tenderness Edema: No Peripheral Pulses WNL: Yes Peripheral Pulses: Left Doralis Pedis: 2+, Right Dorsalis Pedis: 2+ Neurological: Yes: Alert, Oriented Psychiatric: Yes: Alert, Oriented Labs: CBC, BMP 01/25/17 11:00 01/25/17 11:00 INR, PTT INR 1.16 (0.82-1.09) H 01/22/17 17:00 - ....Imaging Chest X-ray: Report Reviewed, Image Reviewed EKG: Report Reviewed, Image Reviewed Other: Report Reviewed, Image Reviewed (tele-nsr, sinus rita, 6 beats nsvt) Assessment/Plan Continued Acute exacerbation COPD/bronchitis Paroxysmal afib with RVR Elevated troponin ESRD Moderate History of CAD, CABG, stents Prior severe GI bleed, not candidate for full AC Breast Ca s/p mastectomy, XRT and hormonal Rx ongoing REC: Elevated troponin-with normal CK most likely secondary to AFib with RVR and demand ischemia in setting of ESRD and missing a day of HD -ordered repeat troponins several times but pt refused -no additional planned work up at this time -cont medical therapy Afib with RVR on admission, now in sinus. -cont current meds -cont telemetry monitoring for now -not candidate for full AC as above -cont ASA 81mg daily and Plavix for now CAD h/o CABG and stents -cont ASA 81mg daily and Plavix for now -cont statin -CTA chest showed no PE SOB -mildly volume overloaded, missed 1 session of HD, now seems more euvolemic -tx of AE COPD as per Pulmonary Aortic stenosis -Outpatient f/u should have repeat echo in 12 months unless clinical change. Left scapular pain: worse w/ movement and coughing- likely muscular -having bone scan today
[2017-01-26] MEDS: ASPIRIN 81 MG CHEWABLE TABLETS PO SCH (09:24)
[2017-01-26] MEDS: guaiFENesin 200 MG/10 ML 10 ML UNIT-DOSE CUPS PO PRN ×2 (09:24→22:19)
[2017-01-26] MEDS: HEPARIN NA (PORCINE) 5,000 UNITS/ML 1ML VIAL SQ SCH ×2 (09:25→22:29)
[2017-01-26] MEDS: CINACALCET HCL 30 MG TAB (FP) PO SCH (09:25)
[2017-01-26] MEDS: TIOTROPIUM BROMIDE 18 MCG/INH (DEVICE W/ 5 CAPSULES) IH SCH (09:25)
[2017-01-26] MEDS: CLOPIDOGREL BISULFATE 75 MG TABLET (FP) PO SCH (09:25)
[2017-01-26] MEDS: METOPROLOL SUCCINATE 25 MG TAB.SR.24H (FP) PO SCH ×2 (09:25→22:18)
[2017-01-26] MEDS: PANTOPRAZOLE 40 MG TABLET (FP) PO SCH (09:25)
[2017-01-26] MEDS: BUDESONIDE/FORMETEROL FUMARATE 160/4.5 mcg INHALER IH SCH ×2 (09:26→22:18)
[2017-01-26] MEDS: CEFTRIAXONE 1 G/50 ML PREMIX 50 ML IVPB SCH (09:26)
[2017-01-26] MEDS ORDERED: POLYETHYLENE GLYCOL 3350 119 GM BTL PO PRN (09:54)
--- NOTE | 2017-01-26 10:36 | PN ---
Progress Note, Physician History of Present Illness: PULMONARY ALERT,FEELING BETTER,LESS DYSPNEIC,LESS CONGESTED,+ COUGH WITH TRACE HEME - Current Medication List Current Medications: Active Medications Albuterol Sulfate (Ventolin 0.083% Nebulizer Soln -) 1 amp NEB Q4H PRN PRN Reason: SHORT OF BREATH/WHEEZING Anastrozole (Arimidex -) 1 mg PO HS [facility] Last Admin: 01/25/17 21:42 Dose: 1 mg Aspirin (Asa -) 81 mg PO DAILY [facility] Last Admin: 01/26/17 09:24 Dose: 81 mg Atorvastatin Calcium (Lipitor -) 10 mg PO HS [facility] Last Admin: 01/25/17 21:42 Dose: 10 mg Budesonide/Formoterol Fumarate (Symbicort 160/4.5mcg -) 2 puff IH BID [facility] Last Admin: 01/26/17 09:26 Dose: 2 inh Cinacalcet (Sensipar -) 60 mg PO DAILY [facility] Last Admin: 01/26/17 09:25 Dose: 60 mg Clopidogrel Bisulfate (Plavix -) 75 mg PO DAILY [facility] Last Admin: 01/26/17 09:25 Dose: 75 mg Guaifenesin (Robitussin -) 10 ml PO Q6H PRN PRN Reason: COUGH Last Admin: 01/26/17 09:24 Dose: 10 ml Heparin Sodium (Porcine) (Heparin -) 5,000 unit SQ BID [facility] Last Admin: 01/26/17 09:25 Dose: 5,000 unit CEFTRIAXONE 1 G/50 ML PREMIX (Ceftriaxone 1 Gm-D5w Bag) 50 mls @ 100 mls/hr IVPB DAILY [facility] Stop: 01/29/17 10:29 Last Admin: 01/26/17 09:26 Dose: 100 mls/hr Methylprednisolone Sodium Succinate (Solu-Medrol -) 40 mg IVPB Q8H-IV [facility] Last Admin: 01/26/17 09:25 Dose: 40 mg Metoprolol Succinate (Toprol Xl -) 12.5 mg PO BID [facility] Last Admin: 01/26/17 09:25 Dose: 12.5 mg Metoprolol Tartrate (Lopressor Injection -) 2.5 mg IVPUSH Q4H PRN PRN Reason: TACHYCARDIA Mometasone Furoate (Asmanex 220mcg -) 1 puff IH HS [facility] Last Admin: 01/25/17 21:46 Dose: 1 puff Montelukast Sodium (Singulair -) 10 mg PO HS [facility] Last Admin: 01/25/17 21:42 Dose: 10 mg Morphine Sulfate (Morphine Injection -) 2 mg IVPUSH Q6H PRN PRN Reason: PAIN Last Admin: 01/25/17 00:44 Dose: 2 mg Pantoprazole Sodium (Protonix -) 40 mg PO DAILY [facility] Last Admin: 01/26/17 09:25 Dose: 40 mg Polyethylene Glycol (Miralax (For Daily Use) -) 17 gm PO Q6H PRN Sevelamer Carbonate (Renvela -) 2,400 mg PO TIDCM [facility] Last Admin: 01/26/17 07:55 Dose: 2,400 mg Tiotropium Wilson (Spiriva -) 1 puff IH DAILY [facility] Last Admin: 01/26/17 09:25 Dose: 1 inh - Objective Vital Signs: Vital Signs Temperature 98.5 F 01/26/17 07:56 Pulse Rate 60 01/26/17 07:56 Respiratory Rate 20 01/26/17 08:00 Blood Pressure 107/51 01/26/17 07:56 O2 Sat by Pulse Oximetry (%) 99 01/26/17 08:00 Constitutional: Yes: Well Nourished, Calm Eyes: Yes: WNL HENT: Yes: WNL Neck: Yes: WNL Cardiovascular: Yes: Pulse Irregular, S1, S2 Respiratory: Yes: Rhonchi (FEW RHONCHI) Gastrointestinal: Yes: Normal Bowel Sounds, Soft Extremities: Yes: WNL Edema: No Labs: CBC, BMP 01/25/17 11:00 01/25/17 11:00 INR, PTT INR 1.16 (0.82-1.09) H 01/22/17 17:00 Problem List - Problems (1) Asthmatic bronchitis Code(s): J45.909 - UNSPECIFIED ASTHMA, UNCOMPLICATED (2) CAD (coronary artery disease) Code(s): I25.10 - ATHSCL HEART DISEASE OF [place] CORONARY ARTERY W/O ANG PCTRS Qualifiers: Qualified Code(s): I25.10 - Atherosclerotic heart disease of [place] coronary artery without angina pectoris; I25.10 - Atherosclerotic heart disease of [place] coronary artery without angina pectoris; I25.10 - Atherosclerotic heart disease of [place] coronary artery without angina pectoris (3) Chronic pain syndrome Code(s): G89.4 - CHRONIC PAIN SYNDROME (4) ESRD (end stage renal disease) on dialysis Code(s): N18.6 - END STAGE RENAL DISEASE Z99.2 - DEPENDENCE ON RENAL DIALYSIS (5) Elevated troponin Code(s): R74.8 - ABNORMAL LEVELS OF OTHER SERUM ENZYMES (6) Renal failure Code(s): N19 - UNSPECIFIED KIDNEY FAILURE (7) Aortic stenosis Code(s): I35.0 - NONRHEUMATIC AORTIC (VALVE) STENOSIS (8) Atrial fibrillation Code(s): I48.91 - UNSPECIFIED ATRIAL FIBRILLATION Qualifiers: Qualified Code(s): I48.0 - Paroxysmal atrial fibrillation; I48.0 - Paroxysmal atrial fibrillation; I48.0 - Paroxysmal atrial fibrillation; I48.0 - Paroxysmal atrial fibrillation (9) Breast CA Code(s): C50.919 - MALIGNANT NEOPLASM OF UNSP SITE OF UNSPECIFIED FEMALE BREAST (10) HTN (hypertension) Code(s): I10 - ESSENTIAL (PRIMARY) HYPERTENSION (11) Hx of CABG Code(s): Z95.1 - PRESENCE OF AORTOCORONARY BYPASS GRAFT (12) SOB (shortness of breath) Code(s): R06.02 - SHORTNESS OF BREATH (13) COPD exacerbation Code(s): J44.1 - CHRONIC OBSTRUCTIVE PULMONARY DISEASE W (ACUTE) EXACERBATION Assessment/Plan IMP ACUTE EXACERBATION COPD/BRONCHITIS SLOWLY IMPROVING ? CHF + TROPONINS LIKELY DEMAND ISCHEMIA LEFT POSTERIOR SCAPULAR PAIN H/O BREAST CA S/P MASTECTOMY ESRD ON HD HTN AFIB ASHD S/P CABG PLAN INHALED BRONCHODILATORS TAPER STEROIDS O2 HD PER RENAL ANALGESICS TREND TROPONINS DR KAUR Problem List - Problems (1) Asthmatic bronchitis Code(s): J45.909 - UNSPECIFIED ASTHMA, UNCOMPLICATED (2) CAD (coronary artery disease) Code(s): I25.10 - ATHSCL HEART DISEASE OF [place] CORONARY ARTERY W/O ANG PCTRS Qualifiers: Coronary Disease-Associated Artery/Lesion type: unspecified vessel or lesion type [place] vs. transplanted heart: [place] heart Associated angina: without angina Qualified Code(s): I25.10 - Atherosclerotic heart disease of [place] coronary artery without angina pectoris; I25.10 - Atherosclerotic heart disease of [place] coronary artery without angina pectoris ; I25.10 - Atherosclerotic heart disease of [place] coronary artery without angina pectoris (3) Chronic pain syndrome Code(s): G89.4 - CHRONIC PAIN SYNDROME (4) ESRD (end stage renal disease) on dialysis Code(s): N18.6 - END STAGE RENAL DISEASE Z99.2 - DEPENDENCE ON RENAL DIALYSIS (5) Elevated troponin Code(s): R74.8 - ABNORMAL LEVELS OF OTHER SERUM ENZYMES (6) Renal failure Code(s): N19 - UNSPECIFIED KIDNEY FAILURE (7) Aortic stenosis Code(s): I35.0 - NONRHEUMATIC AORTIC (VALVE) STENOSIS (8) Atrial fibrillation Code(s): I48.91 - UNSPECIFIED ATRIAL FIBRILLATION Qualifiers: Atrial fibrillation type: paroxysmal Qualified Code(s): I48.0 - Paroxysmal atrial fibrillation; I48.0 - Paroxysmal atrial fibrillation; I48.0 - Paroxysmal atrial fibrillation; I48.0 - Paroxysmal atrial fibrillation (9) Breast CA Code(s): C50.919 - MALIGNANT NEOPLASM OF UNSP SITE OF UNSPECIFIED FEMALE BREAST (10) HTN (hypertension) Code(s): I10 - ESSENTIAL (PRIMARY) HYPERTENSION (11) Hx of CABG Code(s): Z95.1 - PRESENCE OF AORTOCORONARY BYPASS GRAFT (12) SOB (shortness of breath) Code(s): R06.02 - SHORTNESS OF BREATH (13) COPD exacerbation Code(s): J44.1 - CHRONIC OBSTRUCTIVE PULMONARY DISEASE W (ACUTE) EXACERBATION
--- NOTE | 2017-01-26 11:51 | PN ---
Progress Note (short form) - Note Progress Note: Came to see patient. She is at bone scan. Will see her tomorrow.
--- NOTE | 2017-01-26 14:58 | PN ---
Progress Note (short form) - Note Progress Note: Last Vital Signs Temp Pulse Resp BP Pulse Ox 98.5 F 89 20 107/51 98 01/26/17 07:56 01/26/17 10:18 01/26/17 08:00 01/26/17 07:56 01/26/17 10:18 Current Medications Generic Name Dose Route Start Last Admin Trade Name Freq PRN Reason Stop Dose Admin Albuterol Sulfate 1 amp 01/24/17 11:40 Ventolin 0.083% Nebulizer Soln - NEB Q4H PRN SHORT OF BREATH/WHEEZING Anastrozole 1 mg 01/23/17 02:15 01/25/17 21:42 Arimidex - PO 1 mg HS JULIO Administration Aspirin 81 mg 01/23/17 10:00 01/26/17 09:24 Asa - PO 81 mg DAILY JULIO Administration Atorvastatin Calcium 10 mg 01/23/17 22:00 01/25/17 21:42 Lipitor - PO 10 mg HS JULIO Administration Budesonide/Formoterol Fumarate 2 puff 01/24/17 12:15 01/26/17 09:26 Symbicort 160/4.5mcg - IH 2 inh BID JULIO Administration Cinacalcet 60 mg 01/23/17 10:00 01/26/17 09:25 Sensipar - PO 60 mg DAILY JULIO Administration Clopidogrel Bisulfate 75 mg 01/23/17 10:00 01/26/17 09:25 Plavix - PO 75 mg DAILY JULIO Administration Guaifenesin 10 ml 01/23/17 20:40 01/26/17 09:24 Robitussin - PO 10 ml Q6H PRN Administration COUGH Heparin Sodium (Porcine) 5,000 unit 01/23/17 22:00 01/26/17 09:25 Heparin - SQ 5,000 unit BID JULIO Administration CEFTRIAXONE 1 G/50 ML PREMIX 50 mls @ 100 mls/hr 01/25/17 10:00 01/26/17 09:26 Ceftriaxone 1 Gm-D5w Bag IVPB 01/29/17 10:29 100 mls/hr DAILY JULIO Administration Methylprednisolone Sodium Succinate 40 mg 01/26/17 22:00 Solu-Medrol - IVPB BID JULIO Metoprolol Succinate 12.5 mg 01/24/17 22:00 01/26/17 09:25 Toprol Xl - PO 12.5 mg BID JULIO Administration Metoprolol Tartrate 2.5 mg 01/23/17 07:45 Lopressor Injection - IVPUSH Q4H PRN TACHYCARDIA Mometasone Furoate 1 puff 01/23/17 22:00 01/25/17 21:46 Asmanex 220mcg - IH 1 puff HS JULIO Administration Montelukast Sodium 10 mg 01/23/17 22:00 01/25/17 21:42 Singulair - PO 10 mg HS JULIO Administration Morphine Sulfate 2 mg 01/23/17 20:40 01/25/17 00:44 Morphine Injection - IVPUSH 2 mg Q6H PRN Administration PAIN Pantoprazole Sodium 40 mg 01/23/17 10:00 01/26/17 09:25 Protonix - PO 40 mg DAILY JULIO Administration Polyethylene Glycol 17 gm 01/26/17 09:54 Miralax (For Daily Use) - PO Q6H PRN Sevelamer Carbonate 2,400 mg 01/23/17 08:00 01/26/17 12:46 Renvela - PO 2,400 mg TIDCM JULIO Administration Tiotropium [place] 1 puff 01/23/17 10:00 01/26/17 09:25 Spiriva - IH 1 inh DAILY JULIO Administration CBC, BMP 01/25/17 11:00 01/25/17 11:00 61 y/o female with multiple comorbidities COPD/ESRD/CABG/AFib/CHF/Anxiety, h/o breast cancer on arimidex comes in with Lt. scapular pain, shortness of breath Being treated for CHF/COPD On ASA/plavix CTA of chest shows no e/o PE, shows interstitial edema CT tspine--diffuse osteosclerosis due to ESRD? Breast cancer--s/p mastectomy/RT left 1 yr. ago. On arimidex Lt. scapular pain ; still present she says, will f/u on the bone scan that has been done. continue arimidex
--- NOTE | 2017-01-26 17:23 | PN ---
Progress Note (short form) - Note Progress Note: RENAL 61 WITH ESRD LVDYSFUNCTION ADMITTED WITH CP AFIB WITH RVR ONLY ON METOPROLOL CT SHOWED INTERSTITIAL EDEMA NO FOCAL CONSOLIDATION DIALYZED YESTERDAY COUGH CONGESTED ON SOLUMEDROL TAPER LESS WHEEZY NOW ALL MEDS REVIEWED CHEST MILD WHEEZE COUGH CONGESTED LEFT ARM AVG ABD SOFT EXT NO EDEMA EXT TRACE EDEMA HB 9.5 61 WITH LV DYSF ACTIVE SMOKER WILL DIALYZE IN AM TO KEEP ON TTS SCHEDULE
[2017-01-26] MEDS: ANASTROZOLE 1 MG TABLET PO SCH (22:16)
[2017-01-26] MEDS: MOMETASONE FUROATE 220 MCG/IH INHALER IH SCH (22:16)
[2017-01-26] MEDS: ATORVASTATIN CA 10 MG TABLET (FP) PO SCH (22:17)
[2017-01-26] MEDS: MONTELUKAST NA 10 MG TABLET PO SCH (22:17)
--- NOTE | 2017-01-26 22:45 | PN ---
Progress Note, Physician History of Present Illness: Pt w/ no significant change - Current Medication List Current Medications: Active Medications Albuterol Sulfate (Ventolin 0.083% Nebulizer Soln -) 1 amp NEB Q4H PRN PRN Reason: SHORT OF BREATH/WHEEZING Anastrozole (Arimidex -) 1 mg PO HS [facility] Last Admin: 01/26/17 22:16 Dose: 1 mg Aspirin (Asa -) 81 mg PO DAILY [facility] Last Admin: 01/26/17 09:24 Dose: 81 mg Atorvastatin Calcium (Lipitor -) 10 mg PO HS [facility] Last Admin: 01/26/17 22:17 Dose: 10 mg Budesonide/Formoterol Fumarate (Symbicort 160/4.5mcg -) 2 puff IH BID [facility] Last Admin: 01/26/17 22:18 Dose: 2 inh Cinacalcet (Sensipar -) 60 mg PO DAILY [facility] Last Admin: 01/26/17 09:25 Dose: 60 mg Clopidogrel Bisulfate (Plavix -) 75 mg PO DAILY [facility] Last Admin: 01/26/17 09:25 Dose: 75 mg Epoetin Lobo (Procrit -) 10,000 unit IVPUSH ONCE ONE Stop: 01/27/17 17:25 Guaifenesin (Robitussin -) 10 ml PO Q6H PRN PRN Reason: COUGH Last Admin: 01/26/17 22:19 Dose: 10 ml Heparin Sodium (Porcine) (Heparin -) 5,000 unit SQ BID [facility] Last Admin: 01/26/17 22:29 Dose: Not Given CEFTRIAXONE 1 G/50 ML PREMIX (Ceftriaxone 1 Gm-D5w Bag) 50 mls @ 100 mls/hr IVPB DAILY [facility] Stop: 01/29/17 10:29 Last Admin: 01/26/17 09:26 Dose: 100 mls/hr Methylprednisolone Sodium Succinate (Solu-Medrol -) 40 mg IVPB BID [facility] Last Admin: 01/26/17 22:18 Dose: 40 mg Metoprolol Succinate (Toprol Xl -) 12.5 mg PO BID [facility] Last Admin: 01/26/17 22:18 Dose: Not Given Metoprolol Tartrate (Lopressor Injection -) 2.5 mg IVPUSH Q4H PRN PRN Reason: TACHYCARDIA Mometasone Furoate (Asmanex 220mcg -) 1 puff IH HS [facility] Last Admin: 01/26/17 22:16 Dose: 1 puff Montelukast Sodium (Singulair -) 10 mg PO HS [facility] Last Admin: 01/26/17 22:17 Dose: 10 mg Pantoprazole Sodium (Protonix -) 40 mg PO DAILY [facility] Last Admin: 01/26/17 09:25 Dose: 40 mg Polyethylene Glycol (Miralax (For Daily Use) -) 17 gm PO Q6H PRN Sevelamer Carbonate (Renvela -) 2,400 mg PO TIDCM [facility] Last Admin: 01/26/17 17:07 Dose: 2,400 mg Tiotropium Shields (Spiriva -) 1 puff IH DAILY [facility] Last Admin: 01/26/17 09:25 Dose: 1 inh - Objective Vital Signs: Vital Signs Temperature 97.3 F L 01/26/17 20:15 Pulse Rate 63 01/26/17 20:15 Respiratory Rate 15 01/26/17 20:15 Blood Pressure 105/48 01/26/17 20:15 O2 Sat by Pulse Oximetry (%) 98 01/26/17 10:18 Constitutional: Yes: Well Nourished HENT: Yes: WNL Neck: Yes: WNL, Supple Cardiovascular: Yes: WNL, Regular Rate and Rhythm Respiratory: Yes: Diminished Gastrointestinal: Yes: WNL, Normal Bowel Sounds, Soft, Abdomen, Obese Labs: CBC, BMP 01/25/17 11:00 01/25/17 11:00 INR, PTT INR 1.16 (0.82-1.09) H 01/22/17 17:00 Problem List - Problems (1) Asthmatic bronchitis Assessment/Plan: IV solumedrol decreased Change to ceftin Code(s): J45.909 - UNSPECIFIED ASTHMA, UNCOMPLICATED (2) Chronic pain syndrome Assessment/Plan: Cont morphine CT scan T spine showed osteosclerosis Cont morphine Bone scan/xray shoulder Onco consult/ortho consult Code(s): G89.4 - CHRONIC PAIN SYNDROME (3) Elevated troponin Code(s): R74.8 - ABNORMAL LEVELS OF OTHER SERUM ENZYMES (4) ESRD (end stage renal disease) on dialysis Code(s): N18.6 - END STAGE RENAL DISEASE Z99.2 - DEPENDENCE ON RENAL DIALYSIS (5) Breast CA Code(s): C50.919 - MALIGNANT NEOPLASM OF UNSP SITE OF UNSPECIFIED FEMALE BREAST (6) HLD (hyperlipidemia) Code(s): E78.5 - HYPERLIPIDEMIA, UNSPECIFIED (7) HTN (hypertension) Code(s): I10 - ESSENTIAL (PRIMARY) HYPERTENSION (8) Hx of CABG Code(s): Z95.1 - PRESENCE OF AORTOCORONARY BYPASS GRAFT
[2017-01-27] MEDS: ACETAMINOPHEN 325 MG TABLET (FP) PO PRN (01:50)
[2017-01-27] MEDS: SEVELAMER CARBONATE 800 MG TAB (FP) PO SCH ×3 (07:34→17:19)
--- NOTE | 2017-01-27 09:05 | PN ---
Progress Note, Physician Chief Complaint: receiving HD No complaints TELE: NSR, NSST changes. Short run NSVT - Current Medication List Current Medications: Active Medications Acetaminophen (Tylenol -) 650 mg PO Q6H PRN PRN Reason: FEVER OR PAIN Last Admin: 01/27/17 01:50 Dose: 650 mg Albuterol Sulfate (Ventolin 0.083% Nebulizer Soln -) 1 amp NEB Q4H PRN PRN Reason: SHORT OF BREATH/WHEEZING Anastrozole (Arimidex -) 1 mg PO HS [facility] Last Admin: 01/26/17 22:16 Dose: 1 mg Aspirin (Asa -) 81 mg PO DAILY [facility] Last Admin: 01/26/17 09:24 Dose: 81 mg Atorvastatin Calcium (Lipitor -) 10 mg PO HS [facility] Last Admin: 01/26/17 22:17 Dose: 10 mg Budesonide/Formoterol Fumarate (Symbicort 160/4.5mcg -) 2 puff IH BID [facility] Last Admin: 01/26/17 22:18 Dose: 2 inh Cinacalcet (Sensipar -) 60 mg PO DAILY [facility] Last Admin: 01/26/17 09:25 Dose: 60 mg Clopidogrel Bisulfate (Plavix -) 75 mg PO DAILY [facility] Last Admin: 01/26/17 09:25 Dose: 75 mg Epoetin Lobo (Procrit -) 10,000 unit IVPUSH ONCE ONE Stop: 01/27/17 10:01 Guaifenesin (Robitussin -) 10 ml PO Q6H PRN PRN Reason: COUGH Last Admin: 01/26/17 22:19 Dose: 10 ml Heparin Sodium (Porcine) (Heparin -) 5,000 unit SQ BID [facility] Last Admin: 01/26/17 22:29 Dose: Not Given CEFTRIAXONE 1 G/50 ML PREMIX (Ceftriaxone 1 Gm-D5w Bag) 50 mls @ 100 mls/hr IVPB DAILY [facility] Stop: 01/29/17 10:29 Last Admin: 01/26/17 09:26 Dose: 100 mls/hr Methylprednisolone Sodium Succinate (Solu-Medrol -) 40 mg IVPB BID [facility] Last Admin: 01/26/17 22:18 Dose: 40 mg Metoprolol Succinate (Toprol Xl -) 12.5 mg PO BID [facility] Last Admin: 01/26/17 22:18 Dose: Not Given Metoprolol Tartrate (Lopressor Injection -) 2.5 mg IVPUSH Q4H PRN PRN Reason: TACHYCARDIA Mometasone Furoate (Asmanex 220mcg -) 1 puff IH [facility] Last Admin: 01/26/17 22:16 Dose: 1 puff Montelukast Sodium (Singulair -) 10 mg PO HS [facility] Last Admin: 01/26/17 22:17 Dose: 10 mg Pantoprazole Sodium (Protonix -) 40 mg PO DAILY [facility] Last Admin: 01/26/17 09:25 Dose: 40 mg Polyethylene Glycol (Miralax (For Daily Use) -) 17 gm PO Q6H PRN Sevelamer Carbonate (Renvela -) 2,400 mg PO TIDCM [facility] Last Admin: 01/27/17 07:34 Dose: 2,400 mg Tiotropium [place] (Spiriva -) 1 puff IH DAILY [facility] Last Admin: 01/26/17 09:25 Dose: 1 inh - Objective Vital Signs: Vital Signs Temperature 98.0 F 01/27/17 07:20 Pulse Rate 69 01/27/17 08:55 Respiratory Rate 18 01/27/17 08:55 Blood Pressure 116/57 01/27/17 08:55 O2 Sat by Pulse Oximetry (%) 100 01/26/17 21:00 Constitutional: Yes: No Distress Cardiovascular: Yes: Regular Rate and Rhythm Respiratory: Yes: Other (scattered rhonchi) Gastrointestinal: Yes: Soft Edema: No Neurological: Yes: Alert Labs: CBC, BMP 01/25/17 11:00 01/25/17 11:00 INR, PTT INR 1.16 (0.82-1.09) H 01/22/17 17:00 - ....Imaging EKG: Image Reviewed Assessment/Plan Assessment/Plan Continued Acute exacerbation COPD/bronchitis Paroxysmal afib with RVR Elevated troponin ESRD Moderate History of CAD, CABG, stents Prior severe GI bleed, not candidate for full AC Breast Ca s/p mastectomy, XRT and hormonal Rx ongoing REC: Elevated troponin-with normal CK most likely secondary to AFib with RVR and demand ischemia in setting of ESRD and missing a day of HD -ordered repeat troponins several times but pt refused, aware of risks -no additional planned work up at this time -cont medical therapy Afib with RVR on admission, now in sinus. -cont current meds -cont telemetry monitoring for now -not candidate for full AC as above -cont ASA 81mg daily and Plavix for now CAD h/o CABG and stents -cont ASA 81mg daily and Plavix for now -cont statin -CTA chest showed no PE NSVT -Will titrate beta yady. SOB -mildly volume overloaded, missed 1 session of HD, now seems more euvolemic -tx of AE COPD as per Pulmonary Aortic stenosis -Outpatient f/u should have repeat echo in 12 months unless clinical change. Left scapular pain: worse w/ movement and coughing- likely muscular -f/u bone scan
[2017-01-27] MEDS ORDERED: EPOETIN ALFA 10,000 UNIT/1 ML VIAL IVPUSH ONE (10:00)
--- NOTE | 2017-01-27 10:10 | CONSULT ---
Consult Consult Specialty:: pain medicine Referred by:: dr duncan Reason for Consultation:: shoulder pain - History of Present Illness Chief Complaint: no pain History of Present Illness: I stopped in last night for consultation. THe patient reports no pain at this time. - Past Medical History Cardio/Vascular: Yes: AFIB, Aortic Stenosis, CAD, CHF, HTN, Hyperlipdemia, [place], Pulmonary Hypertension Pulmonary: Yes: Asthma, COPD Gastrointestinal: Yes: GI Bleed (colitis, requiring transfusions), Other ( COLITIS ) Renal/: Yes: Renal Failure, Hemodialysis ...LMP: 12/11/10 Psych: Yes: Anxiety - Past Surgical History Past Surgical History: Yes: AV Fistula/Graft, CABG, Cholecystectomy, Stent - Alcohol/Substance Use Hx Alcohol Use: No - Smoking History Smoking history: Unknown if ever smoked Have you smoked in the past 12 months: Yes Aproximately how many cigarettes per day: 20 If you are a former smoker, when did you quit?: 4 MONTHS AGO - Social History Usual Living Arrangement: Other (daughter is here for 5 days and then sister is arriving on tu from [facility]) ADL: Independent History of Recent Travel: No Home Medications - Allergies Allergies/Adverse Reactions: Allergies Allergy/AdvReac Type Severity Reaction Status Date / Time No Known Drug Allergies Allergy Verified 01/22/17 15:54 PLASTIC TAPE Allergy "RASH,ITCHY Uncoded 01/22/17 15:54 " - Home Medications Home Medications: Ambulatory Orders Aspirin [ASA -] 81 mg PO DAILY 12/04/15 Pravastatin Sodium [Pravachol -] 40 mg PO HS 12/04/15 Sevelamer Carbonate [Renvela -] 2,400 mg PO TID 12/04/15 Clopidogrel Bisulfate [Plavix -] 75 mg PO DAILY tablet 05/13/16 Anastrozole [Arimidex -] 1 mg PO HS 01/13/17 Cinacalcet HCl [Sensipar] 60 mg PO DAILY 01/13/17 Folic Acid/Vit Bcomp,C [[place] Tablet] 0.8 mg PO DAILY 01/13/17 Metoprolol Succinate [Toprol XL -] 12.5 mg PO HS 01/13/17 Pantoprazole Sodium [Protonix] 40 mg PO DAILY 01/13/17 Atorvastatin Ca [Lipitor] 10 mg PO HS #30 tablet 01/19/17 Budesonide [Pulmicort Flexhaler] 90 mcg IH BID #1 [email or web address] 01/19/17 Cefuroxime Axetil [Ceftin -] 500 mg PO BID #14 tablet 01/19/17 Montelukast Na [Singulair -] 10 mg PO HS #30 tablet 01/19/17 Prednisone [Deltasone -] 20 mg PO BID #20 tablet 01/19/17 Tiotropium Dante [Spiriva] 1 puff IH DAILY #1 inh 01/19/17 Physical Exam Vital Signs: Vital Signs Temperature 98.0 F 01/27/17 07:20 Pulse Rate 60 01/27/17 09:55 Respiratory Rate 18 01/27/17 09:55 Blood Pressure 92/53 01/27/17 09:55 O2 Sat by Pulse Oximetry (%) 98 01/27/17 09:42 Labs: CBC, BMP 01/25/17 11:00 01/25/17 11:00 Assessment/Plan patient has no pain please recall PRN
--- NOTE | 2017-01-27 10:25 | PN ---
Progress Note (short form) - Note Progress Note: Pt seen and examined. In short she has medical comorbidities including renal failure, dialysis, breast cancer who denies recent trauma, who states that she has intermittent left shoulder pain. Right hand dominant. She states that the shoulder pain comes on suddenly, then takes a few hours to go away. PE Getting dialysis, shunt access left arm, therefore limited PE. Pt states that at this moment she has no pain, and good ROM. LUE grossly NVI. Good ROM left elbow, forearm, wrist, fingers Xrays Left shoulder normal, no acute pathology. + inferior subluxation GH joint. Bone Scan Shows no specific uptake in the left shoulder. 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 Rec Physical therapy only, PRN. Pain meds as per PMD
[2017-01-27] MEDS ORDERED: PT OWN MED DRAWER 7, Y5N ONE ×2 (11:35→22:01)
[2017-01-27] MEDS: CLOPIDOGREL BISULFATE 75 MG TABLET (FP) PO SCH (11:54)
[2017-01-27] MEDS: methylPREDNISolone NA SUCC 40 MG/1 ML VIAL IVPB SCH ×2 (11:54→22:18)
[2017-01-27] MEDS: CEFTRIAXONE 1 G/50 ML PREMIX 50 ML IVPB SCH (11:54)
[2017-01-27] MEDS: ASPIRIN 81 MG CHEWABLE TABLETS PO SCH (11:54)
[2017-01-27] MEDS: PANTOPRAZOLE 40 MG TABLET (FP) PO SCH (11:55)
[2017-01-27] MEDS: CINACALCET HCL 30 MG TAB (FP) PO SCH ×2 (12:04→22:18)
[2017-01-27] MEDS: METOPROLOL SUCCINATE 25 MG TAB.SR.24H (FP) PO SCH ×2 (12:04→22:19)
--- NOTE | 2017-01-27 12:50 | PN ---
Progress Note (short form) - Note Progress Note: Cough is somewhat less. Still feels a bit congested. No CP. S/P HD. Intake & Output 01/24/17 01/25/17 01/26/17 01/27/17 23:59 23:59 23:59 23:59 Intake Total 1200 1240 990 400 Balance 1200 1240 990 400 Weight 221 lb 225 lb 6.4 oz 222 lb 6.4 oz 229 lb Last Vital Signs Temp Pulse Resp BP Pulse Ox 98.0 F 78 18 109/61 98 01/27/17 07:20 01/27/17 11:00 01/27/17 11:00 01/27/17 11:00 01/27/17 09:42 Active Medications Acetaminophen (Tylenol -) 650 mg PO Q6H PRN PRN Reason: FEVER OR PAIN Last Admin: 01/27/17 01:50 Dose: 650 mg Albuterol Sulfate (Ventolin 0.083% Nebulizer Soln -) 1 amp NEB Q4H PRN PRN Reason: SHORT OF BREATH/WHEEZING Anastrozole (Arimidex -) 1 mg PO HS [facility] Last Admin: 01/26/17 22:16 Dose: 1 mg Aspirin (Asa -) 81 mg PO DAILY [facility] Last Admin: 01/27/17 11:54 Dose: 81 mg Atorvastatin Calcium (Lipitor -) 10 mg PO HS [facility] Last Admin: 01/26/17 22:17 Dose: 10 mg Budesonide/Formoterol Fumarate (Symbicort 160/4.5mcg -) 2 puff IH BID [facility] Last Admin: 01/26/17 22:18 Dose: 2 inh Cinacalcet (Sensipar -) 60 mg PO HS [facility] Clopidogrel Bisulfate (Plavix -) 75 mg PO DAILY [facility] Last Admin: 01/27/17 11:54 Dose: 75 mg Guaifenesin (Robitussin -) 10 ml PO Q6H PRN PRN Reason: COUGH Last Admin: 01/26/17 22:19 Dose: 10 ml Heparin Sodium (Porcine) (Heparin -) 5,000 unit SQ BID [facility] Last Admin: 01/26/17 22:29 Dose: Not Given CEFTRIAXONE 1 G/50 ML PREMIX (Ceftriaxone 1 Gm-D5w Bag) 50 mls @ 100 mls/hr IVPB DAILY [facility] Stop: 01/29/17 10:29 Last Admin: 10/12/17 11:54 Dose: 100 mls/hr Methylprednisolone Sodium Succinate (Solu-Medrol -) 40 mg IVPB BID [facility] Last Admin: 01/27/17 11:54 Dose: 40 mg Metoprolol Succinate (Toprol Xl -) 25 mg PO BID [facility] Last Admin: 01/27/17 12:04 Dose: Not Given Metoprolol Tartrate (Lopressor Injection -) 2.5 mg IVPUSH Q4H PRN PRN Reason: TACHYCARDIA Mometasone Furoate (Asmanex 220mcg -) 1 puff IH HS [facility] Last Admin: 01/26/17 22:16 Dose: 1 puff Montelukast Sodium (Singulair -) 10 mg PO HS [facility] Last Admin: 01/26/17 22:17 Dose: 10 mg Pantoprazole Sodium (Protonix -) 40 mg PO DAILY [facility] Last Admin: 01/27/17 11:55 Dose: 40 mg Polyethylene Glycol (Miralax (For Daily Use) -) 17 gm PO Q6H PRN Sevelamer Carbonate (Renvela -) 2,400 mg PO TIDCM [facility] Last Admin: 01/27/17 11:54 Dose: 2,400 mg Tiotropium [place] (Spiriva -) 1 puff IH DAILY [facility] Last Admin: 01/26/17 09:25 Dose: 1 inh Constitutional: Yes: Awake and alert, NAD Eyes: Yes: WNL HENT: Yes: WNL Neck: Yes: WNL Cardiovascular: Yes: Pulse Irregular, S1, S2 Respiratory: Yes: Few scattered Rhonchi, no active wheeze Gastrointestinal: Yes: Normal Bowel Sounds, Soft Extremities: Yes: WNL Edema: No Labs: Problem List - Problems (1) Asthmatic bronchitis Code(s): J45.909 - UNSPECIFIED ASTHMA, UNCOMPLICATED (2) CAD (coronary artery disease) Code(s): I25.10 - ATHSCL HEART DISEASE OF [place] CORONARY ARTERY W/O ANG PCTRS Qualifiers: Qualified Code(s): I25.10 - Atherosclerotic heart disease of [place] coronary artery without angina pectoris; I25.10 - Atherosclerotic heart disease of [place] coronary artery without angina pectoris; I25.10 - Atherosclerotic heart disease of [place] coronary artery without angina pectoris (3) Chronic pain syndrome Code(s): G89.4 - CHRONIC PAIN SYNDROME (4) ESRD (end stage renal disease) on dialysis Code(s): N18.6 - END STAGE RENAL DISEASE Z99.2 - DEPENDENCE ON RENAL DIALYSIS (5) Elevated troponin Code(s): R74.8 - ABNORMAL LEVELS OF OTHER SERUM ENZYMES (6) Renal failure Code(s): N19 - UNSPECIFIED KIDNEY FAILURE (7) Aortic stenosis Code(s): I35.0 - NONRHEUMATIC AORTIC (VALVE) STENOSIS (8) Atrial fibrillation Code(s): I48.91 - UNSPECIFIED ATRIAL FIBRILLATION Qualifiers: Qualified Code(s): I48.0 - Paroxysmal atrial fibrillation; I48.0 - Paroxysmal atrial fibrillation; I48.0 - Paroxysmal atrial fibrillation; I48.0 - Paroxysmal atrial fibrillation (9) Breast CA Code(s): C50.919 - MALIGNANT NEOPLASM OF UNSP SITE OF UNSPECIFIED FEMALE BREAST (10) HTN (hypertension) Code(s): I10 - ESSENTIAL (PRIMARY) HYPERTENSION (11) Hx of CABG Code(s): Z95.1 - PRESENCE OF AORTOCORONARY BYPASS GRAFT (12) SOB (shortness of breath) Code(s): R06.02 - SHORTNESS OF BREATH (13) COPD exacerbation Code(s): J44.1 - CHRONIC OBSTRUCTIVE PULMONARY DISEASE W (ACUTE) EXACERBATION Assessment/Plan IMP ACUTE EXACERBATION COPD/BRONCHITIS SLOWLY IMPROVING CHF + TROPONINS LIKELY DEMAND ISCHEMIA LEFT POSTERIOR SCAPULAR PAIN H/O BREAST CA S/P MASTECTOMY ESRD ON HD HTN AFIB ASHD S/P CABG PLAN INHALED BRONCHODILATORS WILL CHANGE TO PREDNISONE IN AM O2 HD PER RENAL ANALGESICS DR ROTH
[2017-01-27] MEDS: BUDESONIDE/FORMETEROL FUMARATE 160/4.5 mcg INHALER IH SCH ×2 (13:03→22:19)
[2017-01-27] MEDS: TIOTROPIUM BROMIDE 18 MCG/INH (DEVICE W/ 5 CAPSULES) IH SCH (13:03)
[2017-01-27] MEDS: HEPARIN NA (PORCINE) 5,000 UNITS/ML 1ML VIAL SQ SCH ×2 (13:04→21:59)
--- NOTE | 2017-01-27 17:47 | PN ---
Progress Note (short form) - Note Progress Note: Oncology brief note: Bone scan report: d/w as the findings and impresion were discordant. Patient does NOT have osteoblastic metastases.
--- NOTE | 2017-01-27 19:34 | PN ---
Progress Note (short form) - Note Progress Note: 61 year old female with history of left breast cancer, hypertension and end stage renal disease admitted with marked tenderness in the mid back area. Patient denies any history of recent trauma. She has no other complaint. Vitals: Initial Vital Signs Temp Pulse Resp BP Pulse Ox 98.4 F 118 H 22 166/90 96 01/22/17 15:30 01/22/17 15:30 01/22/17 15:30 01/22/17 15:30 01/22/17 15:30 Lungs; coarse breath sound in the distal lung [place] Heart: S1 s2 regular, no gallop Abd: obese, soft, non-tender Ext: Trace bipedal edema Access:: positive bruit left arm AV fistula Back: Palpable tenderness in the left infra-scapular region. Labs: CBCD WBC 10.1 K/mm3 (4.0-10.0) H 01/25/17 11:00 RBC 2.42 M/mm3 (3.60-5.2) L D 01/25/17 11:00 Hgb 9.1 GM/dL (10.7-15.3) L D 01/25/17 11:00 Hct 26.8 % (32.4-45.2) L D 01/25/17 11:00 MCV 110.6 fl (80-96) H 01/25/17 11:00 MCHC 34.1 g/dl (32.0-36.0) 01/25/17 11:00 RDW 17.0 % (11.6-15.6) H 01/25/17 11:00 Plt Count 172 K/MM3 (134-434) 01/25/17 11:00 MPV 9.5 fl (7.5-11.1) 01/25/17 11:00 CMP Sodium 136 mmol/L (136-145) 01/25/17 11:00 Potassium 5.1 mmol/L (3.5-5.1) 01/25/17 11:00 Chloride 95 mmol/L (98-107) L 01/25/17 11:00 Carbon Dioxide 25 mmol/L (21-32) D 01/25/17 11:00 Anion Gap 16 (8-16) 01/25/17 11:00 BUN 101 mg/dL (7-18) H 01/25/17 11:00 Creatinine 7.9 mg/dL (0.55-1.02) H* 01/25/17 11:00 Creat Clearance w eGFR 5.17 (>60) 01/25/17 11:00 Calcium 7.2 mg/dL (8.5-10.1) L 01/25/17 11:00 Total Bilirubin 0.4 mg/dL (0.2-1.0) D 01/25/17 11:00 AST 40 U/L (15-37) H D 01/25/17 11:00 ALT 53 U/L (12-78) 01/25/17 11:00 Alkaline Phosphatase 210 U/L (45-117) H 01/25/17 11:00 Total Protein 6.0 g/dl (6.4-8.2) L 01/25/17 11:00 Albumin 2.9 g/dl (3.4-5.0) L 01/25/17 11:00 A/P: 61 year old female with ESRD admitted with left infra-scapular back pain. Hemodialysis today as dialysis orders. Physical therapy as tolerated. Discharge planning as per PMD.
--- NOTE | 2017-01-27 21:11 | PN ---
Progress Note, Physician History of Present Illness: Pt got very upset talking about possibility dc for am Pt states that she cannot go home until after dialysis on sat bc she has no [employer] [facility] Pt denies any pain today - Current Medication List Current Medications: Active Medications Acetaminophen (Tylenol -) 650 mg PO Q6H PRN PRN Reason: FEVER OR PAIN Last Admin: 01/27/17 01:50 Dose: 650 mg Albuterol Sulfate (Ventolin 0.083% Nebulizer Soln -) 1 amp NEB Q4H PRN PRN Reason: SHORT OF BREATH/WHEEZING Anastrozole (Arimidex -) 1 mg PO HS [facility] Last Admin: 01/26/17 22:16 Dose: 1 mg Aspirin (Asa -) 81 mg PO DAILY [facility] Last Admin: 01/27/17 11:54 Dose: 81 mg Atorvastatin Calcium (Lipitor -) 10 mg PO HS [facility] Last Admin: 01/26/17 22:17 Dose: 10 mg Budesonide/Formoterol Fumarate (Symbicort 160/4.5mcg -) 2 puff IH BID [facility] Last Admin: 01/27/17 13:03 Dose: 2 inh Cinacalcet (Sensipar -) 60 mg PO HS [facility] Clopidogrel Bisulfate (Plavix -) 75 mg PO DAILY [facility] Last Admin: 01/27/17 11:54 Dose: 75 mg Guaifenesin (Robitussin -) 10 ml PO Q6H PRN PRN Reason: COUGH Last Admin: 01/26/17 22:19 Dose: 10 ml Heparin Sodium (Porcine) (Heparin -) 5,000 unit SQ BID [facility] Last Admin: 01/27/17 13:04 Dose: Not Given CEFTRIAXONE 1 G/50 ML PREMIX (Ceftriaxone 1 Gm-D5w Bag) 50 mls @ 100 mls/hr IVPB DAILY [facility] Stop: 01/29/17 10:29 Last Admin: 01/27/17 11:54 Dose: 100 mls/hr Methylprednisolone Sodium Succinate (Solu-Medrol -) 40 mg IVPB BID [facility] Stop: 01/27/17 23:59 Last Admin: 01/27/17 11:54 Dose: 40 mg Metoprolol Succinate (Toprol Xl -) 25 mg PO BID [facility] Last Admin: 01/27/17 12:04 Dose: Not Given Metoprolol Tartrate (Lopressor Injection -) 2.5 mg IVPUSH Q4H PRN PRN Reason: TACHYCARDIA Mometasone Furoate (Asmanex 220mcg -) 1 puff IH [facility] Last Admin: 01/26/17 22:16 Dose: 1 puff Montelukast Sodium (Singulair -) 10 mg PO HS [facility] Last Admin: 01/26/17 22:17 Dose: 10 mg Pantoprazole Sodium (Protonix -) 40 mg PO DAILY [facility] Last Admin: 01/27/17 11:55 Dose: 40 mg Polyethylene Glycol (Miralax (For Daily Use) -) 17 gm PO Q6H PRN Prednisone (Deltasone -) 40 mg PO DAILY [facility] Sevelamer Carbonate (Renvela -) 2,400 mg PO TIDCM [facility] Last Admin: 01/27/17 17:19 Dose: 2,400 mg Tiotropium [place] (Spiriva -) 1 puff IH DAILY [facility] Last Admin: 01/27/17 13:03 Dose: 1 inh - Objective Vital Signs: Vital Signs Temperature 98 F 01/27/17 16:48 Pulse Rate 74 01/27/17 16:48 Respiratory Rate 20 01/27/17 16:48 Blood Pressure 147/58 01/27/17 16:48 O2 Sat by Pulse Oximetry (%) 98 01/27/17 09:42 Constitutional: Yes: Well Nourished Neck: Yes: WNL, Supple Cardiovascular: Yes: WNL, Regular Rate and Rhythm Respiratory: Yes: WNL, Regular, CTA Bilaterally Gastrointestinal: Yes: WNL, Normal Bowel Sounds, Soft Labs: CBC, BMP 01/25/17 11:00 01/25/17 11:00 INR, PTT INR 1.16 (0.82-1.09) H 01/22/17 17:00 Problem List - Problems (1) Asthmatic bronchitis Assessment/Plan: Cont IV solumedrol Possibility of changing to prednisone in am Ceftin Code(s): J45.909 - UNSPECIFIED ASTHMA, UNCOMPLICATED (2) Chronic pain syndrome Assessment/Plan: Cont morphine CT scan T spine showed osteosclerosis Cont morphine Bone scan/xray shoulder were unremarkable Onco/ortho/pain management consults noted Code(s): G89.4 - CHRONIC PAIN SYNDROME (3) Elevated troponin Code(s): R74.8 - ABNORMAL LEVELS OF OTHER SERUM ENZYMES (4) ESRD (end stage renal disease) on dialysis Code(s): N18.6 - END STAGE RENAL DISEASE Z99.2 - DEPENDENCE ON RENAL DIALYSIS (5) Breast CA Code(s): C50.919 - MALIGNANT NEOPLASM OF [facility] SITE OF UNSPECIFIED FEMALE BREAST (6) HLD (hyperlipidemia) Code(s): E78.5 - HYPERLIPIDEMIA, UNSPECIFIED (7) HTN (hypertension) Code(s): I10 - ESSENTIAL (PRIMARY) HYPERTENSION (8) Hx of CABG Code(s): Z95.1 - PRESENCE OF AORTOCORONARY BYPASS GRAFT
[2017-01-27] MEDS: MOMETASONE FUROATE 220 MCG/IH INHALER IH SCH (22:17)
[2017-01-27] MEDS: ANASTROZOLE 1 MG TABLET PO SCH (22:17)
[2017-01-27] MEDS: MONTELUKAST NA 10 MG TABLET PO SCH (22:18)
[2017-01-27] MEDS: ATORVASTATIN CA 10 MG TABLET (FP) PO SCH (22:18)
[2017-01-27] MEDS: guaiFENesin 200 MG/10 ML 10 ML UNIT-DOSE CUPS PO PRN (22:19)
[2017-01-27] MEDS: ALBUTEROL SO4 0.083% IH SOL 2.5 MG/3 ML VIAL.NEB. NEB PRN (23:57)
[2017-01-28] MEDS: ACETAMINOPHEN 325 MG TABLET (FP) PO PRN (04:00)
[2017-01-28] MEDS: ALBUTEROL SO4 0.083% IH SOL 2.5 MG/3 ML VIAL.NEB. NEB PRN ×2 (05:58→11:39)
[2017-01-28] MEDS: SEVELAMER CARBONATE 800 MG TAB (FP) PO SCH ×3 (07:46→17:21)
--- NOTE | 2017-01-28 08:54 | PN ---
Progress Note, Physician History of Present Illness: seen and examined today in nad. pt states that her main complaint now is fear of the recurrence of her L upper back pain and that tylenol does not help it at all. she requests stronger medication. - Current Medication List Current Medications: Active Medications Acetaminophen (Tylenol -) 650 mg PO Q6H PRN PRN Reason: FEVER OR PAIN Last Admin: 01/28/17 04:00 Dose: 650 mg Albuterol Sulfate (Ventolin 0.083% Nebulizer Soln -) 1 amp NEB Q4H PRN PRN Reason: SHORT OF BREATH/WHEEZING Last Admin: 01/28/17 05:58 Dose: 1 amp Anastrozole (Arimidex -) 1 mg PO HS [facility] Last Admin: 01/27/17 22:17 Dose: 1 mg Aspirin (Asa -) 81 mg PO DAILY [facility] Last Admin: 01/27/17 11:54 Dose: 81 mg Atorvastatin Calcium (Lipitor -) 10 mg PO HS [facility] Last Admin: 01/27/17 22:18 Dose: 10 mg Budesonide/Formoterol Fumarate (Symbicort 160/4.5mcg -) 2 puff IH BID [facility] Last Admin: 01/27/17 22:19 Dose: 2 inh Cinacalcet (Sensipar -) 60 mg PO HS [facility] Last Admin: 01/27/17 22:18 Dose: 60 mg Clopidogrel Bisulfate (Plavix -) 75 mg PO DAILY [facility] Last Admin: 01/27/17 11:54 Dose: 75 mg Guaifenesin (Robitussin -) 10 ml PO Q6H PRN PRN Reason: COUGH Last Admin: 01/27/17 22:19 Dose: 10 ml Heparin Sodium (Porcine) (Heparin -) 5,000 unit SQ BID [facility] Last Admin: 01/27/17 21:59 Dose: Not Given CEFTRIAXONE 1 G/50 ML PREMIX (Ceftriaxone 1 Gm-D5w Bag) 50 mls @ 100 mls/hr IVPB DAILY [facility] Stop: 01/29/17 10:29 Last Admin: 01/27/17 11:54 Dose: 100 mls/hr Metoprolol Succinate (Toprol Xl -) 25 mg PO BID [facility] Last Admin: 01/27/17 22:19 Dose: 25 mg Metoprolol Tartrate (Lopressor Injection -) 2.5 mg IVPUSH Q4H PRN PRN Reason: TACHYCARDIA Mometasone Furoate (Asmanex 220mcg -) 1 puff IH HS [facility] Last Admin: 01/27/17 22:17 Dose: 1 puff Montelukast Sodium (Singulair -) 10 mg PO HS [facility] Last Admin: 01/27/17 22:18 Dose: 10 mg Pantoprazole Sodium (Protonix -) 40 mg PO DAILY [facility] Last Admin: 01/27/17 11:55 Dose: 40 mg Polyethylene Glycol (Miralax (For Daily Use) -) 17 gm PO Q6H PRN Prednisone (Deltasone -) 40 mg PO DAILY [facility] Sevelamer Carbonate (Renvela -) 2,400 mg PO TIDCM [facility] Last Admin: 01/28/17 07:46 Dose: 2,400 mg Tiotropium [place] (Spiriva -) 1 puff IH DAILY [facility] Last Admin: 01/27/17 13:03 Dose: 1 inh - Objective Vital Signs: Vital Signs Temperature 97.8 F 01/28/17 05:36 Pulse Rate 88 01/28/17 05:36 Respiratory Rate 20 01/28/17 05:36 Blood Pressure 144/84 01/28/17 05:36 O2 Sat by Pulse Oximetry (%) 98 01/27/17 21:00 Constitutional: Yes: No Distress, Calm, Obese Eyes: Yes: Conjunctiva Clear, EOM Intact, PERRL HENT: Yes: Atraumatic, Normocephalic Neck: Yes: Supple, Trachea Midline Cardiovascular: Yes: Regular Rate and Rhythm, Murmur, S1, S2. No: Bradycardia, Tachycardia, Pulse Irregular, Bruit, JVD, Gallop, Rub, S3, S4, Varicosities Respiratory: Yes: Regular, Cough, Diminished, Rhonchi. No: Rales, Wheezes Gastrointestinal: Yes: Normal Bowel Sounds, Soft. No: Distention, Tenderness Extremities: Yes: WNL Edema: No Peripheral Pulses WNL: Yes Peripheral Pulses: Left Doralis Pedis: 2+, Right Dorsalis Pedis: 2+ Neurological: Yes: Alert, Oriented Psychiatric: Yes: Alert, Oriented Labs: CBC, BMP 01/25/17 11:00 01/25/17 11:00 INR, PTT INR 1.16 (0.82-1.09) H 01/22/17 17:00 - ....Imaging Chest X-ray: Report Reviewed, Image Reviewed EKG: Report Reviewed, Image Reviewed Other: Report Reviewed, Image Reviewed (tele-nsr, apcs, pvcs, brief episode of afib with rvr) Assessment/Plan Continued Acute exacerbation COPD/bronchitis Paroxysmal afib with RVR Elevated troponin ESRD Moderate History of CAD, CABG, stents Prior severe GI bleed, not candidate for full AC Breast Ca s/p mastectomy, XRT and hormonal Rx ongoing REC: Afib with RVR on admission, now in sinus with occasional brief episode afib with rvr -HR and rhythm seem to have improved with improving pulmonary status -cont toprol 25mg bid for now -difficult to add additional meds as BP has been low normal and given ESRD -not candidate for full AC as above -cont ASA 81mg daily and Plavix for now -recc close outpatient f/up to ensure adequate HR control, currently nsr CAD h/o CABG and stents -cont ASA 81mg daily and Plavix for now -cont statin -CTA chest showed no PE -Elevated troponin-with normal CK most likely secondary to AFib with RVR and demand ischemia in setting of ESRD and missing a day of HD -ordered repeat troponins several times but pt refused, aware of risks -no additional planned work up at this time -cont medical therapy NSVT -titrated bblocker as much as tolerated and no further NSVT thus far [id number] volume overloaded, missed 1 session of HD, AE COPD -volume status improved with HD -tx of AE COPD as per Pulmonary Aortic stenosis -Outpatient f/u should have repeat echo in 12 months unless clinical change. Left scapular pain: worse w/ movement and coughing- likely muscular -bone scan reviewed -pain management consult states pt has no pain, but pt complains of severe pain with no relief with tylenol, would reconsult
--- NOTE | 2017-01-28 09:20 | EKG ---
Test Reason : Blood Pressure : / mmHG Vent. Rate : 110 BPM Atrial Rate : 110 BPM P-R Int : 144 ms QRS Dur : 110 ms QT Int : 328 ms P-R-T Axes : -07 063 242 degrees QTc Int : 443 ms SINUS TACHYCARDIA INCOMPLETE LEFT BUNDLE BRANCH BLOCK LEFT VENTRICULAR HYPERTROPHY WITH REPOLARIZATION ABNORMALITY ABNORMAL ECG Confirmed by NICOLE MENDEZ MD ([id number]) on 01/28/2017 9:19:58 AM Referred By: Confirmed By:NICOLE MENDEZ MD
[2017-01-28] MEDS: METOPROLOL SUCCINATE 25 MG TAB.SR.24H (FP) PO SCH ×2 (10:07→21:06)
[2017-01-28] MEDS: PANTOPRAZOLE 40 MG TABLET (FP) PO SCH (10:07)
[2017-01-28] MEDS: HEPARIN NA (PORCINE) 5,000 UNITS/ML 1ML VIAL SQ SCH ×4 (10:07→21:18)
[2017-01-28] MEDS: CLOPIDOGREL BISULFATE 75 MG TABLET (FP) PO SCH (10:08)
[2017-01-28] MEDS: predniSONE 20 MG TABLET (UD) PO SCH (10:08)
[2017-01-28] MEDS: ASPIRIN 81 MG CHEWABLE TABLETS PO SCH (10:08)
[2017-01-28] MEDS: TIOTROPIUM BROMIDE 18 MCG/INH (DEVICE W/ 5 CAPSULES) IH SCH (10:11)
[2017-01-28] MEDS: BUDESONIDE/FORMETEROL FUMARATE 160/4.5 mcg INHALER IH SCH ×2 (10:11→21:08)
[2017-01-28] MEDS: CEFTRIAXONE 1 G/50 ML PREMIX 50 ML IVPB SCH (10:42)
--- NOTE | 2017-01-28 11:25 | PN ---
Progress Note, Physician History of Present Illness: pulmonary alert,feeling better,less dyspneic,less congested - Current Medication List Current Medications: Active Medications Acetaminophen (Tylenol -) 650 mg PO Q6H PRN PRN Reason: FEVER OR PAIN Last Admin: 01/28/17 04:00 Dose: 650 mg Albuterol Sulfate (Ventolin 0.083% Nebulizer Soln -) 1 amp NEB Q4H PRN PRN Reason: SHORT OF BREATH/WHEEZING Last Admin: 01/28/17 05:58 Dose: 1 amp Anastrozole (Arimidex -) 1 mg PO HS [facility] Last Admin: 01/27/17 22:17 Dose: 1 mg Aspirin (Asa -) 81 mg PO DAILY [facility] Last Admin: 01/28/17 10:08 Dose: 81 mg Atorvastatin Calcium (Lipitor -) 10 mg PO HS [facility] Last Admin: 01/27/17 22:18 Dose: 10 mg Budesonide/Formoterol Fumarate (Symbicort 160/4.5mcg -) 2 puff IH BID [facility] Last Admin: 01/28/17 10:11 Dose: 2 inh Cinacalcet (Sensipar -) 60 mg PO HS [facility] Last Admin: 01/27/17 22:18 Dose: 60 mg Clopidogrel Bisulfate (Plavix -) 75 mg PO DAILY [facility] Last Admin: 01/28/17 10:08 Dose: 75 mg Guaifenesin (Robitussin -) 10 ml PO Q6H PRN PRN Reason: COUGH Last Admin: 01/27/17 22:19 Dose: 10 ml Heparin Sodium (Porcine) (Heparin -) 5,000 unit SQ BID [facility] Last Admin: 01/28/17 10:13 Dose: Not Given CEFTRIAXONE 1 G/50 ML PREMIX (Ceftriaxone 1 Gm-D5w Bag) 50 mls @ 100 mls/hr IVPB DAILY [facility] Stop: 01/29/17 10:29 Last Admin: 01/28/17 10:42 Dose: 100 mls/hr Metoprolol Succinate (Toprol Xl -) 25 mg PO BID [facility] Last Admin: 01/28/17 10:07 Dose: 25 mg Metoprolol Tartrate (Lopressor Injection -) 2.5 mg IVPUSH Q4H PRN PRN Reason: TACHYCARDIA Mometasone Furoate (Asmanex 220mcg -) 1 puff IH HS [facility] Last Admin: 01/27/17 22:17 Dose: 1 puff Montelukast Sodium (Singulair -) 10 mg PO HS [facility] Last Admin: 01/27/17 22:18 Dose: 10 mg Pantoprazole Sodium (Protonix -) 40 mg PO DAILY [facility] Last Admin: 01/28/17 10:07 Dose: 40 mg Polyethylene Glycol (Miralax (For Daily Use) -) 17 gm PO Q6H PRN Prednisone (Deltasone -) 40 mg PO DAILY [facility] Last Admin: 01/28/17 10:08 Dose: 40 mg Sevelamer Carbonate (Renvela -) 2,400 mg PO TIDCM [facility] Last Admin: 01/28/17 07:46 Dose: 2,400 mg Tiotropium [place] (Spiriva -) 1 puff IH DAILY [facility] Last Admin: 01/28/17 10:11 Dose: 1 inh - Objective Vital Signs: Vital Signs Temperature 98 F 01/28/17 10:00 Pulse Rate 65 01/28/17 10:39 Respiratory Rate 20 01/28/17 10:00 Blood Pressure 124/68 01/28/17 10:00 O2 Sat by Pulse Oximetry (%) 97 01/28/17 10:39 Constitutional: Yes: Well Nourished, Calm Eyes: Yes: WNL HENT: Yes: WNL Neck: Yes: WNL Cardiovascular: Yes: Pulse Irregular, S1, S2 Respiratory: Yes: Rhonchi (scattered [place] rhonchi) Gastrointestinal: Yes: Normal Bowel Sounds, Soft Extremities: Yes: WNL Edema: Yes Labs: CBC, BMP Problem List - Problems (1) Asthmatic bronchitis Code(s): J45.909 - UNSPECIFIED ASTHMA, UNCOMPLICATED (2) CAD (coronary artery disease) Code(s): I25.10 - ATHSCL HEART DISEASE OF [place] CORONARY ARTERY W/O ANG PCTRS Qualifiers: Qualified Code(s): I25.10 - Atherosclerotic heart disease of [place] coronary artery without angina pectoris; I25.10 - Atherosclerotic heart disease of [place] coronary artery without angina pectoris; I25.10 - Atherosclerotic heart disease of [place] coronary artery without angina pectoris (3) Chronic pain syndrome Code(s): G89.4 - CHRONIC PAIN SYNDROME (4) ESRD (end stage renal disease) on dialysis Code(s): N18.6 - END STAGE RENAL DISEASE Z99.2 - DEPENDENCE ON RENAL DIALYSIS (5) Elevated troponin Code(s): R74.8 - ABNORMAL LEVELS OF OTHER SERUM ENZYMES (6) Renal failure Code(s): N19 - UNSPECIFIED KIDNEY FAILURE (7) Aortic stenosis Code(s): I35.0 - NONRHEUMATIC AORTIC (VALVE) STENOSIS (8) Atrial fibrillation Code(s): I48.91 - UNSPECIFIED ATRIAL FIBRILLATION Qualifiers: Qualified Code(s): I48.0 - Paroxysmal atrial fibrillation; I48.0 - Paroxysmal atrial fibrillation; I48.0 - Paroxysmal atrial fibrillation; I48.0 - Paroxysmal atrial fibrillation (9) Breast CA Code(s): C50.919 - MALIGNANT NEOPLASM OF UNSP SITE OF UNSPECIFIED FEMALE BREAST (10) HTN (hypertension) Code(s): I10 - ESSENTIAL (PRIMARY) HYPERTENSION (11) Hx of CABG Code(s): Z95.1 - PRESENCE OF AORTOCORONARY BYPASS GRAFT (12) SOB (shortness of breath) Code(s): R06.02 - SHORTNESS OF BREATH (13) COPD exacerbation Code(s): J44.1 - CHRONIC OBSTRUCTIVE PULMONARY DISEASE W (ACUTE) EXACERBATION Assessment/Plan IMP ACUTE EXACERBATION COPD/BRONCHITIS SLOWLY IMPROVING ? CHF + TROPONINS LIKELY DEMAND ISCHEMIA LEFT POSTERIOR SCAPULAR PAIN H/O BREAST CA S/P MASTECTOMY ESRD ON HD HTN AFIB ASHD S/P CABG PLAN INHALED BRONCHODILATORS TAPER STEROIDS O2 HD PER RENAL ANALGESICS DR KAUR Problem List - Problems (1) Asthmatic bronchitis Code(s): J45.909 - UNSPECIFIED ASTHMA, UNCOMPLICATED (2) CAD (coronary artery disease) Code(s): I25.10 - ATHSCL HEART DISEASE OF [place] CORONARY ARTERY W/O ANG PCTRS Qualifiers: Coronary Disease-Associated Artery/Lesion type: unspecified vessel or lesion type [place] vs. transplanted heart: [place] heart Associated angina: without angina Qualified Code(s): I25.10 - Atherosclerotic heart disease of [place] coronary artery without angina pectoris; I25.10 - Atherosclerotic heart disease of [place] coronary artery without angina pectoris ; I25.10 - Atherosclerotic heart disease of [place] coronary artery without angina pectoris (3) Chronic pain syndrome Code(s): G89.4 - CHRONIC PAIN SYNDROME (4) ESRD (end stage renal disease) on dialysis Code(s): N18.6 - END STAGE RENAL DISEASE Z99.2 - DEPENDENCE ON RENAL DIALYSIS (5) Elevated troponin Code(s): R74.8 - ABNORMAL LEVELS OF OTHER SERUM ENZYMES (6) Renal failure Code(s): N19 - UNSPECIFIED KIDNEY FAILURE (7) Aortic stenosis Code(s): I35.0 - NONRHEUMATIC AORTIC (VALVE) STENOSIS (8) Atrial fibrillation Code(s): I48.91 - UNSPECIFIED ATRIAL FIBRILLATION Qualifiers: Atrial fibrillation type: paroxysmal Qualified Code(s): I48.0 - Paroxysmal atrial fibrillation; I48.0 - Paroxysmal atrial fibrillation; I48.0 - Paroxysmal atrial fibrillation; I48.0 - Paroxysmal atrial fibrillation (9) Breast CA Code(s): C50.919 - MALIGNANT NEOPLASM OF UNSP SITE OF UNSPECIFIED FEMALE BREAST (10) HTN (hypertension) Code(s): I10 - ESSENTIAL (PRIMARY) HYPERTENSION (11) Hx of CABG Code(s): Z95.1 - PRESENCE OF AORTOCORONARY BYPASS GRAFT (12) SOB (shortness of breath) Code(s): R06.02 - SHORTNESS OF BREATH (13) COPD exacerbation Code(s): J44.1 - CHRONIC OBSTRUCTIVE PULMONARY DISEASE W (ACUTE) EXACERBATION
--- NOTE | 2017-01-28 16:45 | PN ---
Progress Note (short form) - Note Progress Note: RENAL 61 WITH ESRD LVDYSFUNCTION ADMITTED WITH CP AFIB WITH RVR ONLY ON METOPROLOL CT SHOWED INTERSTITIAL EDEMA NO FOCAL CONSOLIDATION DIALYZED YESTERDAY COUGH LESS CONGESTED ON PO PREDNISONE NOW IV CEFREIAXONE CHEST CLEAR LEFT ARM AVG ABD SOFT EXT NO EDEMA EXT TRACE EDEMA LABS NOTED 61 WITH LV DYSF ACTIVE SMOKER WILL DIALYZE IN AM TO KEEP ON TTS SCHEDULE DC HOME IN AM ON PRED TAPER
--- NOTE | 2017-01-28 17:27 | PN ---
Progress Note (short form) - Note Progress Note: Patient seen and examined Denies significant SOB or dyspnea. Complains of some shoulder and back pains Last Vital Signs Temp Pulse Resp BP Pulse Ox 98.4 F 59 L 20 101/48 97 01/28/17 15:00 01/28/17 15:00 01/28/17 15:00 01/28/17 15:00 01/28/17 10:39 HEENT: JULIETA, EOM Intact Oropharynx: No thrush, No mucositis Nodes: Without adenopathy Breasts: s/p left mastectomy Cor: RSR, No murmurs, No gallops Lungs: scattered rhonchi Abd: Soft, Normal bowel sounds, No organomegaly Ext:No significant edema Skin: No rashes, Integument intact CBC, BMP 01/25/17 11:00 01/25/17 11:00 Current Medications Generic Name Dose Route Start Last Admin Trade Name Freq PRN Reason Stop Dose Admin Acetaminophen 650 mg 01/27/17 01:29 01/28/17 04:00 Tylenol - PO 650 mg Q6H PRN Administration FEVER OR PAIN Albuterol Sulfate 1 amp 01/24/17 11:40 01/28/17 11:39 Ventolin 0.083% Nebulizer Soln - NEB 1 amp Q4H PRN Administration SHORT OF BREATH/WHEEZING Anastrozole 1 mg 01/23/17 02:15 01/27/17 22:17 Arimidex - PO 1 mg HS JULIO Administration Aspirin 81 mg 01/23/17 10:00 01/28/17 10:08 Asa - PO 81 mg DAILY JULIO Administration Atorvastatin Calcium 10 mg 01/23/17 22:00 01/27/17 22:18 Lipitor - PO 10 mg HS JULIO Administration Budesonide/Formoterol Fumarate 2 puff 01/24/17 12:15 01/28/17 10:11 Symbicort 160/4.5mcg - IH 2 inh BID JULIO Administration Cinacalcet 60 mg 01/27/17 12:45 01/27/17 22:18 Sensipar - PO 60 mg HS JULIO Administration Clopidogrel Bisulfate 75 mg 01/23/17 10:00 01/28/17 10:08 Plavix - PO 75 mg DAILY JULIO Administration Epoetin Lobo 5,000 units 01/29/17 16:47 Epogen - IVPUSH 01/29/17 16:48 ONCE ONE Guaifenesin 10 ml 01/23/17 20:40 01/27/17 22:19 Robitussin - PO 10 ml Q6H PRN Administration COUGH Heparin Sodium (Porcine) 5,000 unit 01/23/17 22:00 01/28/17 10:13 Heparin - SQ Not Given BID JULIO Hydromorphone HCl 1 mg 01/28/17 12:34 Dilaudid - PO BID PRN PAIN CEFTRIAXONE 1 G/50 ML PREMIX 50 mls @ 100 mls/hr 01/25/17 10:00 01/28/17 10:42 Ceftriaxone 1 Gm-D5w Bag IVPB 01/29/17 10:29 100 mls/hr DAILY JULIO Administration Metoprolol Succinate 25 mg 01/27/17 10:00 01/28/17 10:07 Toprol Xl - PO 25 mg BID JULIO Administration Metoprolol Tartrate 2.5 mg 01/23/17 07:45 Lopressor Injection - IVPUSH Q4H PRN TACHYCARDIA Mometasone Furoate 1 puff 01/23/17 22:00 01/27/17 22:17 Asmanex 220mcg - IH 1 puff HS JULIO Administration Montelukast Sodium 10 mg 01/23/17 22:00 01/27/17 22:18 Singulair - PO 10 mg HS JULIO Administration Pantoprazole Sodium 40 mg 01/23/17 10:00 01/28/17 10:07 Protonix - PO 40 mg DAILY JULIO Administration Polyethylene Glycol 17 gm 01/26/17 09:54 Miralax (For Daily Use) - PO Q6H PRN Prednisone 40 mg 01/28/17 10:00 01/28/17 10:08 Deltasone - PO 40 mg DAILY JULIO Administration Sevelamer Carbonate 2,400 mg 01/23/17 08:00 01/28/17 17:21 Renvela - PO 2,400 mg TIDCM JULIO Administration Tiotropium [place] 1 puff 01/23/17 10:00 01/28/17 10:11 Spiriva - IH 1 inh DAILY JULIO Administration Impression Breast ca ESRD-HD LV dysfunction Renal osteodystrophy SOB Plan : Continue arimidex F/U medicine, pulmonary, renal, cardiac.
[2017-01-28] MEDS ORDERED: PT OWN MED DRAWER 7, Y5N ONE (21:03)
[2017-01-28] MEDS: MONTELUKAST NA 10 MG TABLET PO SCH (21:06)
[2017-01-28] MEDS: CINACALCET HCL 30 MG TAB (FP) PO SCH (21:06)
[2017-01-28] MEDS: ATORVASTATIN CA 10 MG TABLET (FP) PO SCH (21:06)
[2017-01-28] MEDS: ANASTROZOLE 1 MG TABLET PO SCH (21:06)
[2017-01-28] MEDS: MOMETASONE FUROATE 220 MCG/IH INHALER IH SCH (21:08)
--- NOTE | 2017-01-28 22:02 | PN ---
Progress Note, Physician - Current Medication List Current Medications: Active Medications Acetaminophen (Tylenol -) 650 mg PO Q6H PRN PRN Reason: FEVER OR PAIN Last Admin: 01/28/17 04:00 Dose: 650 mg Albuterol Sulfate (Ventolin 0.083% Nebulizer Soln -) 1 amp NEB Q4H PRN PRN Reason: SHORT OF BREATH/WHEEZING Last Admin: 01/28/17 11:39 Dose: 1 amp Anastrozole (Arimidex -) 1 mg PO HS [facility] Last Admin: 01/28/17 21:06 Dose: 1 mg Aspirin (Asa -) 81 mg PO DAILY [facility] Last Admin: 01/28/17 10:08 Dose: 81 mg Atorvastatin Calcium (Lipitor -) 10 mg PO HS [facility] Last Admin: 01/28/17 21:06 Dose: 10 mg Budesonide/Formoterol Fumarate (Symbicort 160/4.5mcg -) 2 puff IH BID [facility] Last Admin: 01/28/17 21:08 Dose: 2 inh Cinacalcet (Sensipar -) 60 mg PO HS [facility] Last Admin: 01/28/17 21:06 Dose: 60 mg Clopidogrel Bisulfate (Plavix -) 75 mg PO DAILY [facility] Last Admin: 01/28/17 10:08 Dose: 75 mg Epoetin Lobo (Epogen -) 5,000 units IVPUSH ONCE ONE Stop: 01/29/17 16:48 Guaifenesin (Robitussin -) 10 ml PO Q6H PRN PRN Reason: COUGH Last Admin: 01/27/17 22:19 Dose: 10 ml Heparin Sodium (Porcine) (Heparin -) 5,000 unit SQ BID [facility] Last Admin: 01/28/17 21:18 Dose: Not Given Hydromorphone HCl (Dilaudid -) 1 mg PO BID PRN PRN Reason: PAIN CEFTRIAXONE 1 G/50 ML PREMIX (Ceftriaxone 1 Gm-D5w Bag) 50 mls @ 100 mls/hr IVPB DAILY [facility] Stop: 01/29/17 10:29 Last Admin: 01/28/17 10:42 Dose: 100 mls/hr Metoprolol Succinate (Toprol Xl -) 25 mg PO BID [facility] Last Admin: 01/28/17 21:06 Dose: 25 mg Metoprolol Tartrate (Lopressor Injection -) 2.5 mg IVPUSH Q4H PRN PRN Reason: TACHYCARDIA Mometasone Furoate (Asmanex 220mcg -) 1 puff IH HS [facility] Last Admin: 01/28/17 21:08 Dose: 1 puff Montelukast Sodium (Singulair -) 10 mg PO HS [facility] Last Admin: 01/28/17 21:06 Dose: 10 mg Pantoprazole Sodium (Protonix -) 40 mg PO DAILY [facility] Last Admin: 01/28/17 10:07 Dose: 40 mg Polyethylene Glycol (Miralax (For Daily Use) -) 17 gm PO Q6H PRN Prednisone (Deltasone -) 40 mg PO DAILY [facility] Last Admin: 01/28/17 10:08 Dose: 40 mg Sevelamer Carbonate (Renvela -) 2,400 mg PO TIDCM [facility] Last Admin: 01/28/17 17:21 Dose: 2,400 mg Tiotropium [place] (Spiriva -) 1 puff IH DAILY [facility] Last Admin: 01/28/17 10:11 Dose: 1 inh - Objective Vital Signs: Vital Signs Temperature 97.8 F 01/28/17 18:00 Pulse Rate 65 01/28/17 18:00 Respiratory Rate 20 01/28/17 18:00 Blood Pressure 126/99 01/28/17 18:00 O2 Sat by Pulse Oximetry (%) 97 01/28/17 10:39 Labs: CBC, BMP 01/25/17 11:00 01/25/17 11:00 INR, PTT INR 1.16 (0.82-1.09) H 01/22/17 17:00 Problem List - Problems (1) Asthmatic bronchitis Code(s): J45.909 - UNSPECIFIED ASTHMA, UNCOMPLICATED (2) Chronic pain syndrome Code(s): G89.4 - CHRONIC PAIN SYNDROME (3) Elevated troponin Code(s): R74.8 - ABNORMAL LEVELS OF OTHER SERUM ENZYMES (4) ESRD (end stage renal disease) on dialysis Code(s): N18.6 - END STAGE RENAL DISEASE Z99.2 - DEPENDENCE ON RENAL DIALYSIS (5) Breast CA Code(s): C50.919 - MALIGNANT NEOPLASM OF UNSP SITE OF UNSPECIFIED FEMALE BREAST (6) HLD (hyperlipidemia) Code(s): E78.5 - HYPERLIPIDEMIA, UNSPECIFIED (7) HTN (hypertension) Code(s): I10 - ESSENTIAL (PRIMARY) HYPERTENSION (8) Hx of CABG Code(s): Z95.1 - PRESENCE OF AORTOCORONARY BYPASS GRAFT
[2017-01-28] MEDS: guaiFENesin 200 MG/10 ML 10 ML UNIT-DOSE CUPS PO PRN (23:26)
[2017-01-28] MEDS: HYDROmorphone HCL 2 MG TABLET PO PRN (23:33)
[2017-01-29] MEDS: guaiFENesin 200 MG/10 ML 10 ML UNIT-DOSE CUPS PO PRN (06:30)
[2017-01-29] MEDS: SEVELAMER CARBONATE 800 MG TAB (FP) PO SCH ×2 (08:35→14:25)
--- NOTE | 2017-01-29 09:03 | PN ---
Progress Note, Physician Chief Complaint: no new complaints TELE: NSR, APCS, NSST No further NSVT - Current Medication List Current Medications: Active Medications Acetaminophen (Tylenol -) 650 mg PO Q6H PRN PRN Reason: FEVER OR PAIN Last Admin: 01/28/17 04:00 Dose: 650 mg Albuterol Sulfate (Ventolin 0.083% Nebulizer Soln -) 1 amp NEB Q4H PRN PRN Reason: SHORT OF BREATH/WHEEZING Last Admin: 01/28/17 11:39 Dose: 1 amp Anastrozole (Arimidex -) 1 mg PO HS [facility] Last Admin: 01/28/17 21:06 Dose: 1 mg Aspirin (Asa -) 81 mg PO DAILY [facility] Last Admin: 01/28/17 10:08 Dose: 81 mg Atorvastatin Calcium (Lipitor -) 10 mg PO HS [facility] Last Admin: 01/28/17 21:06 Dose: 10 mg Budesonide/Formoterol Fumarate (Symbicort 160/4.5mcg -) 2 puff IH BID [facility] Last Admin: 01/28/17 21:08 Dose: 2 inh Cinacalcet (Sensipar -) 60 mg PO HS [facility] Last Admin: 01/28/17 21:06 Dose: 60 mg Clopidogrel Bisulfate (Plavix -) 75 mg PO DAILY [facility] Last Admin: 01/28/17 10:08 Dose: 75 mg Epoetin Lobo (Epogen -) 5,000 units IVPUSH ONCE ONE Stop: 01/29/17 16:48 Guaifenesin (Robitussin -) 10 ml PO Q6H PRN PRN Reason: COUGH Last Admin: 01/29/17 06:30 Dose: 10 ml Heparin Sodium (Porcine) (Heparin -) 5,000 unit SQ BID [facility] Last Admin: 01/28/17 21:18 Dose: Not Given Hydromorphone HCl (Dilaudid -) 1 mg PO BID PRN PRN Reason: PAIN Last Admin: 01/28/17 23:33 Dose: 1 mg CEFTRIAXONE 1 G/50 ML PREMIX (Ceftriaxone 1 Gm-D5w Bag) 50 mls @ 100 mls/hr IVPB DAILY [facility] Stop: 01/29/17 10:29 Last Admin: 01/28/17 10:42 Dose: 100 mls/hr Metoprolol Succinate (Toprol Xl -) 25 mg PO BID [facility] Last Admin: 10/13/17 21:06 Dose: 25 mg Metoprolol Tartrate (Lopressor Injection -) 2.5 mg IVPUSH Q4H PRN PRN Reason: TACHYCARDIA Mometasone Furoate (Asmanex 220mcg -) 1 puff IH HS [facility] Last Admin: 01/28/17 21:08 Dose: 1 puff Montelukast Sodium (Singulair -) 10 mg PO HS [facility] Last Admin: 01/28/17 21:06 Dose: 10 mg Pantoprazole Sodium (Protonix -) 40 mg PO DAILY [facility] Last Admin: 01/28/17 10:07 Dose: 40 mg Polyethylene Glycol (Miralax (For Daily Use) -) 17 gm PO Q6H PRN Prednisone (Deltasone -) 40 mg PO DAILY [facility] Last Admin: 01/28/17 10:08 Dose: 40 mg Sevelamer Carbonate (Renvela -) 2,400 mg PO TIDCM [facility] Last Admin: 01/29/17 08:35 Dose: 2,400 mg Tiotropium [place] (Spiriva -) 1 puff IH DAILY [facility] Last Admin: 01/28/17 10:11 Dose: 1 inh - Objective Vital Signs: Vital Signs Temperature 98 F 01/29/17 06:31 Pulse Rate 51 L 01/29/17 06:31 Respiratory Rate 20 01/29/17 06:31 Blood Pressure 105/60 01/29/17 06:31 O2 Sat by Pulse Oximetry (%) 97 01/28/17 22:00 Constitutional: Yes: Calm Cardiovascular: Yes: Regular Rate and Rhythm Respiratory: Yes: Other (decreased breath sounds, no active wheezing) Gastrointestinal: Yes: Soft Edema: No Neurological: Yes: Alert, Oriented Labs: CBC, BMP 01/25/17 11:00 01/25/17 11:00 INR, PTT INR 1.16 (0.82-1.09) H 01/22/17 17:00 - ....Imaging EKG: Image Reviewed Assessment/Plan Assessment/Plan Resolving Acute exacerbation COPD/bronchitis Paroxysmal afib with RVR Elevated troponin ESRD Moderate History of CAD, CABG, stents Prior severe GI bleed, not candidate for full AC Breast Ca s/p mastectomy, XRT and hormonal Rx ongoing REC: Afib with RVR on admission, now in sinus with occasional brief episode afib with rvr -HR and rhythm seem to have improved with improving pulmonary status -cont toprol 25mg bid for now -not candidate for full AC as above -cont ASA 81mg daily and Plavix for now -recc close outpatient f/up to ensure adequate HR control, currently nsr CAD h/o CABG and stents -cont ASA 81mg daily and Plavix for now -cont statin -CTA chest showed no PE -Elevated troponin-with normal CK most likely secondary to AFib with RVR and demand ischemia in setting of ESRD and missing a day of HD -ordered repeat troponins several times but pt refused, aware of risks -no additional planned work up at this time -cont medical therapy NSVT -titrated bblocker as much as tolerated and no further NSVT thus far NVC-trihkevisprpnh-olauel volume overloaded, missed 1 session of HD, AE COPD -volume status improved with HD -tx of AE COPD as per Pulmonary Aortic stenosis -Outpatient f/u should have repeat echo in 12 months unless clinical change. Left scapular pain: worse w/ movement and coughing- likely muscular -bone scan reviewed
[2017-01-29] MEDS ORDERED: PT OWN MED DRAWER 7, Y5N ONE (10:06)
[2017-01-29] MEDS: HEPARIN NA (PORCINE) 5,000 UNITS/ML 1ML VIAL SQ SCH (10:22)
[2017-01-29] MEDS ORDERED: EPOETIN ALFA 3,000 UNIT, EPOETIN ALFA 2,000 UNIT IVPUSH ONE (12:00)
[2017-01-29] MEDS: CLOPIDOGREL BISULFATE 75 MG TABLET (FP) PO SCH (14:25)
[2017-01-29] MEDS: ASPIRIN 81 MG CHEWABLE TABLETS PO SCH (14:25)
[2017-01-29] MEDS: CEFTRIAXONE 1 G/50 ML PREMIX 50 ML IVPB SCH (14:25)
[2017-01-29] MEDS: predniSONE 20 MG TABLET (UD) PO SCH (14:25)
[2017-01-29] MEDS: METOPROLOL SUCCINATE 25 MG TAB.SR.24H (FP) PO SCH ×2 (14:25→14:39)
[2017-01-29] MEDS: PANTOPRAZOLE 40 MG TABLET (FP) PO SCH (14:26)
[2017-01-29] MEDS: TIOTROPIUM BROMIDE 18 MCG/INH (DEVICE W/ 5 CAPSULES) IH SCH (14:26)
[2017-01-29] MEDS: BUDESONIDE/FORMETEROL FUMARATE 160/4.5 mcg INHALER IH SCH (14:26)
[2017-01-29] MEDS: HYDROmorphone HCL 2 MG TABLET PO PRN (15:30)
[2017-01-29 15:51] VITALS: BP 118/50; PULSE 52; TEMP 97.5
[2017-01-29] MEDS ORDERED: EPOETIN ALFA 2,000 UNITS/1 ML VIAL IVPUSH ONE (16:47)
== END 2017-01-29 17:18 | disposition home health service (06) | DRG 190 ==
LOC: JER 15:29 → JERBED 22:45 → J4W 01-23 01:32
PROVIDERS: ADMIT Internal Medicine; ATTEND Internal Medicine
PROC: 5A1D90Z Performance of Urinary Filtration, Continuous, Greater than 18 hours Per Day (ICD-10-PCS; principal; 2017-01-29)
DX: J44.1 Chronic obstructive pulmonary disease with (acute) exacerbation (principal); N18.6 End stage renal disease; I12.0 Hypertensive chronic kidney disease with stage 5 chronic kidney disease or end stage renal disease; I47.1 Supraventricular tachycardia; J44.0 Chronic obstructive pulmonary disease with (acute) lower respiratory infection; J20.9 Acute bronchitis, unspecified; I48.0 Paroxysmal atrial fibrillation; I35.0 Nonrheumatic aortic (valve) stenosis; I25.10 Atherosclerotic heart disease of native coronary artery without angina pectoris; Z98.61 Coronary angioplasty status; Z95.1 Presence of aortocoronary bypass graft; Z85.3 Personal history of malignant neoplasm of breast; G89.4 Chronic pain syndrome; E78.5 Hyperlipidemia, unspecified; N25.0 Renal osteodystrophy
CPT/HCPCS: 36415; 71275-TC; 72128-TC; 73030-TC-LT; 78306-TC; 80053; 82553; 83880; 84484; 85025; 85610; 85730; 93005; 93010; 94640; 97116-GP; 97161-GP; 99284-25; A9503; J0885; J1644

== ENCOUNTER 2017-05-31 12:31 | Inpatient (IN) | payer OTHER ==
[2017-05-31] MEDS ORDERED: PROPOFOL 1,000,000 MCG/100 ML VIAL ONE (12:54)
[2017-05-31] MEDS ORDERED: CALCIUM CHLORIDE 1 GM/10 ML *DISP.SYRIN ONE (13:03)
[2017-05-31] MEDS ORDERED: ETOMIDATE 20 MG/10 ML AMPUL IVPUSH ONE (13:03)
[2017-05-31] MEDS ORDERED: EPINEPHrine 1:10,000 (P-F SYR) 1 MG/10 ML DISP.SYRIN ONE ×2 (13:03→13:15)
[2017-05-31] MEDS ORDERED: SODIUM BICARBONATE 8.4% - 50 ML ONE ×2 (13:03→15:46)
[2017-05-31] MEDS ORDERED: SUCCINYLCHOLINE CHLORIDE 200 MG/10 ML VIAL ONE (13:03)
[2017-05-31 13:05] VITALS: BMI 28.6
--- NOTE | 2017-05-31 13:06 | PDOC ---
Attending Attestation - Resident Resident Name: Luan Strauss - ED Attending Attestation I have performed the following: I have examined & evaluated the patient, The case was reviewed & discussed with the resident, I agree w/resident's findings & plan, Exceptions are as noted - HPI HPI: 05/31/17 13:02 62-year-old female with a history of end-stage renal disease on dialysis, COPD, recent admission for GI bleed, found to have nonsustained V. tach, history of coronary artery disease. This patient presents to the emergency department with EMS after being found down and unresponsive. Upon EMS arrival, this patient was found to be bradycardic and NPH. CPR initiated. Patient given epi 1 Patient given bicarbonate 1 Patient intubated due to respiratory depression (given Etomidate and Succinylcholine) Patient given a gram of calcium in route to the emergency department Upon arrival to the emergency department, patient hypotensive, heart rate normal IV placed in the right hand 05/31/17 14:58 - Physicial Exam PE: 05/31/17 14:58 On examination: Right pupil dilated Patient initially unresponsive however while in the department patient again moving around more (reaching for ET tube with left hand) Regular rate, harsh murmur Bilateral breath sounds No abdominal tenderness No lower extremity edema - Medical Decision Making 05/31/17 14:58 Will do: Labs EKG Chest portable CT head IV fluids for hypotension Pacerpads in place May need vasopressors 05/31/17 14:57 05/31/17 14:58 Laboratory Tests 05/31/17 05/31/17 05/31/17 13:00 13:00 13:00 WBC 7.8 D Hgb 12.5 D Hct 42.3 D Plt Count 179 Neutrophils % 86.1 H Lymphocytes % 10.6 D INR 2.15 H D Sodium 140 Potassium 5.5 H Chloride 98 Carbon Dioxide 17 L Anion Gap 25 H BUN 55 H Creatinine 9.0 H* Random Glucose 91 Creatine Kinase 94 Troponin I 0.21 H Emergency department by cardiology. EKG demonstrates sinus rate 69, LBBB clinical impression: Cardiac arrest, initial presentation 05/31/17 16:22 Pt was admitted to Dr Philip with ICU consult Pt Noted to become bradycardiac and hypotensive after initially being normotensive NS continuously running Pt ordered for Dopamine While waiting, ICU attending bedside Bedside ECHO demonstrated poor contractility Pt given Epinephrine for hypotension and bradycardia Improved BP I was not in the room when pt lost vital signs Code started with Dr Gabriel at this patient's bedside Please see ACLS sheet for further details Case reviewed with patient's son He is en route to the ER to see this patient 05/31/17 17:15 Case reviewed with knitted cloth examiner [place] release number [phone] Family interested in paying for an autopsy Pt asked to speak with Nurse Sweeper Driver Discharge Disposition - Diagnosis Cardiac arrest - Discharge Dispostion Disposition: Condition at time of disposition: Critical Admit: Yes - Referrals - Patient Instructions - Post Discharge Activity
[2017-05-31 13:14] LABS: BASO % 0.6 % (0-2.0); EOS % 0.2 % (0-4.5); HEMATOCRIT 42.3 % (32.4-45.2); HEMOGLOBIN 12.5 GM/dL (10.7-15.3); LYMPH % 10.6 % (8-40); MCH 32.8 pg (25.7-33.7); MCHC 29.7 g/dl (32.0-36.0); MEAN CELL VOLUME 110.4 fl (80-96); MONO % 2.5 % (3.8-10.2); NEUT % 86.1 % (42.8-82.8); PLATELET COUNT 179 K/MM3 (134-434); RBC 3.83 M/mm3 (3.60-5.2); RDW 28.5 % (11.6-15.6); WHITE BLOOD COUNT 7.8 K/mm3 (4.0-10.0)
[2017-05-31] MEDS ORDERED: PROPOFOL 1,000,000 MCG/100 ML VIAL IVPB SCH (13:15)
[2017-05-31 13:28] LABS: INR 2.15 (0.82-1.09); PROTHROMBIN TIME (PATIENT) 24.3 SEC (9.98-11.88)
--- NOTE | 2017-05-31 13:39 | PDOC ---
History of Present Illness - General Chief Complaint: Lethargy Stated Complaint: UNRESPONSIVE Time Seen by Provider: 05/31/17 13:02 History Source: EMS Exam Limitations: Clinical Condition - History of Present Illness Initial Comments: 05/31/17 16:50 Patient is a 62F with history of ESRD on dialysis, CHF, SD, CAD s/p CABG and 3 stents, breast cancer s/p left mastectomy, HTN, non-sustained Vtach, and afib with rvr here today after being coded in the field and gaining ROSC. Patient was found in her bed with apneic breathing. She was given a round of epi, fluids and intubated in the field. ROSC was achieved, but patient was bradycardic with low blood pressures. She was paced in the field. She was then given calcium, and her blood pressure normalized. Upon arrival into the ED, patient was non-responsive, but had a pulse. Past History - Past Medical History Allergies/Adverse Reactions: Allergies Allergy/AdvReac Type Severity Reaction Status Date / Time No Known Allergies Allergy Verified 05/31/17 13:03 Home Medications: Ambulatory Orders Aspirin [ASA -] 81 mg PO DAILY 09/25/16 Amlodipine Besylate 20 mg PO DAILY 03/12/17 Atorvastatin Ca [Lipitor] 80 mg PO HS 03/12/17 Clopidogrel Bisulfate [Plavix -] 75 mg PO DAILY 03/12/17 Famotidine 20 mg PO DAILY 03/12/17 Montelukast Na [Singulair -] 10 mg PO HS 03/12/17 Nystatin Powder [Nystop Powder -] 100,000 gm TP PRN 03/12/17 Anemia: Yes Cancer: Yes (malignant neoplasm of breast) Cardiac Disorders: Yes COPD: Yes CHF: Yes Dialysis: Yes (LT ARM FISTULA, TUES,THR,SAT) GI Disorders: Yes (diverticulitis/GIB/DYSPEPSIA, gerd,) Disorders: Yes (ESRD) HTN: Yes Hypercholesterolemia: Yes Psychiatric Problems: Yes (anxiety) Thyroid Disease: Yes (hypothyroidism.) Other medical history: muscle weakness. abnormality of gait and mobility - Surgical History Cardiac Surgery: Yes (CABG, 6 CARD STENT) - Suicide/Smoking/Psychosocial Hx Smoking Status: No Smoking History: Unknown if ever smoked Have you smoked in the past 12 months: Yes Number of Cigarettes Smoked Daily: 0 Information on smoking cessation initiated: No 'Breaking Loose' booklet given: 09/25/16 Hx Alcohol Use: No Drug/Substance Use Hx: No Substance Use Type: None Review of Systems - Review of Systems Able to Perform ROS?: No (2/2 clinical condition) *Physical Exam - Vital Signs Last Vital Signs Temp Pulse Resp BP Pulse Ox 75 12 188/66 100 05/31/17 12:31 05/31/17 12:31 05/31/17 12:31 05/31/17 12:31 - Physical Exam Comments: 05/31/17 16:56 GENERAL: Intubated, ill-appearing, small amount of brown discharge on right side of face HEAD: No signs of trauma, normocephalic, atraumatic EYES: Blown right pupil, left pupil 3mm and reactive, conjunctiva clear LUNGS: Rales bilaterally, equal breath sounds HEART: Regular rate and rhythm, normal S1 and S2, no murmurs, rubs or gallops, peripheral pulses normal and equal bilaterally. ABDOMEN: Soft, nontender, normoactive bowel sounds. No guarding, no rebound. No masses EXTREMITIES: No edema. No clubbing or cyanosis. Old bruising noted on arms bilaterally. NEUROLOGICAL: Blown pupil in right side. Moving all extremities SKIN: Warm, Dry, normal turgor, no rashes or lesions noted. ED Treatment Course - LABORATORY CBC & Chemistry Diagram: 05/31/17 13:00 05/31/17 13:00 - ADDITIONAL ORDERS Additional order review: Laboratory Results 05/31/17 13:00 PT with INR 24.30 H INR 2.15 H D 05/31/17 13:00 RBC 3.83 D MCV 110.4 H MCHC 29.7 L RDW 28.5 H MPV 10.0 D Neutrophils % 86.1 H Lymphocytes % 10.6 D Monocytes % 2.5 L Eosinophils % 0.2 D Basophils % 0.6 Medical Decision Making - Critical Care Time Total Critical Care Time (minutes): 120 Critical Care Statement: The care of this patient involved high complexity decision making to prevent further life threatening deterioration of the patient 's condition and/or to evaluate & treat vital organ system(s) failure or risk of failure. - Medical Decision Making 05/31/17 13:37 Dr Esau muir from cardiology. Recommends stablization for patient and ICU at this point instead of going to cath. Patient being actively resuscitated, will document later. 05/31/17 16:58 Patient is a 62F with history of ESRD on dialysis, CHF, SD, CAD s/p CABG and 3 stents, breast cancer s/p left mastectomy, HTN, non-sustained Vtach, and afib with rvr. A: Intubated, confirmed with ETCO2 B: Equal breath sounds bilaterally C: MAP of 75 initially, then SBPs in 70s and 60s, IO placed in field after failed IV attempts D: Moving all extremities, glucose normal, blown right pupil E: No obvious injuries noted on exposure Concern was for head bleed and and herniation given pupil, taken to CT. CT head normal. Central line placed. Started on levophed. Patient's blood pressures initially improved to systolics in 100. On re-examination patient was noted to have worsening vital signs. Blood pressure dropped to systolic in 50-70s. Levophed was increased without improvement. Epinephrine and bicarb were given, and patient's blood pressure normalized. Bedside ultrasound showed decreased cardiac function, but still had movement. Patient then went into VTach and became pulseless. Compressions were initiated. Patient was given multiple rounds of epinephrine, bicarb, insulin/d50 , calcium chloride. ROSC was never achieved. Efforts were terminated after about 30 minutes. Patient at 15:58. *DC/Admit/Observation/Transfer Diagnosis at time of Disposition: Cardiac arrest - Discharge Dispostion Condition at time of disposition: Critical - Referrals - Patient Instructions - Post Discharge Activity
[2017-05-31] MEDS ORDERED: NOREPINEPHRINE BITARTRATE 4,000 MCG in DEXTROSE 5%-WATER - 496 ML IV SCH (14:00)
[2017-05-31 14:17] LABS: ALBUMIN 3.3 g/dl (3.4-5.0); ANION GAP 25 (8-16); BLOOD UREA NITROGEN 55 mg/dL (7-18); CALCIUM 8.5 mg/dL (8.5-10.1); CHLORIDE 98 mmol/L (98-107); CO2 17 mmol/L (21-32); GLUCOSE,RANDOM 91 mg/dL (74-106); POTASSIUM 5.5 mmol/L (3.5-5.1); SGOT/AST 55 U/L (15-37); SGPT/ALT 40 U/L (12-78); SODIUM 140 mmol/L (136-145); TOT PROT 6.1 g/dl (6.4-8.2)
[2017-05-31 14:27] LABS: ALK PHOS 90 U/L (45-117); BILIRUBIN,TOTAL 0.7 mg/dL (0.2-1.0)
[2017-05-31 14:58] VITALS: BP 55/28; PULSE 44
[2017-05-31] MEDS ORDERED: VANCOMYCIN 1,000 MG in DEXTROSE 5%-WATER - 250 ML IVPB ONE (14:58)
[2017-05-31] MEDS ORDERED: PIPERACILLIN/TAZOB 4.5 GM/100 ML PRE-DOCKED IVPB ONE (15:00)
--- NOTE | 2017-05-31 15:20 | PN ---
Progress Note, Physician History of Present Illness: Pt recently admitted here with GI bleed, rectus sheath hematoma, anemia, multiple long episodes of NSVT thus transferred to [facility] for possible cardiac cath and EPS evaluation. There treated for influenza, multifocal pneumonia, hospital course complicated by a tension pneumothorax requiring chest tube placement, exacerbation of her psych disorder, discharged to rehab 2 days ago. Pt found unresponsive at rehab today, EMS found her in PEA, given epi, bradycardic thus transcutaneously paced initially, intubated in the field, recovered a pulse. In the ER found to be moving extremities but not following commands, sedated, hypotensive now on Levophed. Called [facility] labs before discharge showed K 3.7 Mg 2.3, H/H/WBC wnl. Pt seen and examined in the ER. Intubated, sedated, mechanically ventilated, unresponsive. Cardiac cath was not done at [facility] given pts overall poor condition with influenza /PNA, bleeding and anemia. EP work up was deferred to outpatient setting, as per report pt had no further NSVT during admission there. - Current Medication List Current Medications: Active Medications Propofol (Diprivan -) 1,000,000 mcg in 100 mls @ 2.341 mls/hr IVPB TITR JULIO; 5 MCG/KG/MIN PRN Reason: Protocol Last Admin: 05/31/17 13:30 Dose: 10 mcg/kg/min, 4.681 mls/hr Norepinephrine Bitartrate 4, (000 mcg/ Dextrose) 500 mls @ 37.5 mls/hr IV TITR JULIO; 5 MCG/MIN PRN Reason: Protocol Last Titration: 05/31/17 14:58 Dose: 100 mcg/min, 750 mls/hr Vancomycin HCl 1,000 mg/ (Dextrose) 250 mls @ 250 mls/hr IVPB ONCE ONE PRN Reason: Protocol Stop: 05/31/17 15:57 - Objective Vital Signs: Vital Signs Temperature Pulse Rate 44 L 05/31/17 14:58 Respiratory Rate 20 05/31/17 14:58 Blood Pressure 55/28 05/31/17 14:58 O2 Sat by Pulse Oximetry (%) 100 05/31/17 14:58 Constitutional: Yes: No Distress, Other (unresponsive, sedated on ventilator) Cardiovascular: Yes: Bradycardia, Murmur, S1, S2. No: Tachycardia, Pulse Irregular, Bruit, JVD, Gallop, Rub, S3, S4, Varicosities Respiratory: Yes: Regular, Diminished, Intubated, Mechanically Ventilated, Rhonchi. No: Rales, Wheezes Gastrointestinal: Yes: Normal Bowel Sounds, Soft Edema: No Peripheral Pulses WNL: Yes Neurological: No: Alert, Oriented Psychiatric: No: Alert, Oriented Labs: CBC, BMP 05/31/17 13:00 05/31/17 13:00 INR, PTT INR 2.15 (0.82-1.09) H D 05/31/17 13:00 - ....Imaging Chest X-ray: Report Reviewed, Image Reviewed EKG: Report Reviewed, Image Reviewed Other: Report Reviewed, Image Reviewed (tele-currently sinus bradycardia) Assessment/Plan IMP: CAD s/p CABG, multivessel PCI with reportedly 3 stents placed Jake January Moderate to severe Paroxysmal afib ESRD COPD Recently admitted with BRBPR and anemia, left rectus sheath hematoma, NSVT, influenza, multifocal PNA RIJ DVT Not on AC due to GI bleed, rectus sheath hematoma, anemia PEA arrest EKG-sinus bradycardia, LBBB, diffuse ST abnormalities, ST depressions Plan -multiple possible etiologies -no reported VT/VF, pt resuscitated from PEA with epi and CPR, intubation -possibilities include but not limited to electrolyte abnormalities, sepsis, pulmonary embolism, arrhythmia [place] -unable to anticoagulate currently due to recent significant bleeding and severe anemia -K5.5, H/H wnl -CK wnl, troponin 0.2 thus not supporting Acute W[place] at this time, trend serial cardiac enzymes -check stat echo to evaluate for pericardial effusion, LV function, RV size and function -CTA chest to evaluate for PE once hemodynamically stable to go to CT -check doppler LE to evaluate for DVT in the meantime -cannot use full AC at this time given significant recent bleeding and her PT on presentation was 24.30 -pt currently on Levophed Addendum: pt again had PEA, epinephrine was given with resultant wide complex tachycardia, she was shocked multiple times and given multiple rounds of epi and cpr. pt did not sustain a pulse. limited bedside ER echo showed cardiac standstill and no significant pericardial effusion, no significant RV dilatation. Pt approximately 4pm. Pts son was called and informed.
[2017-05-31] MEDS ORDERED: DOPAMINE 400 MG/D5W - 400,000 MCG/250 ML INFUS.BAG IVPB ONE (15:30)
[2017-05-31] MEDS ORDERED: DOPAMINE 400 MG/D5W - 400,000 MCG/250 ML INFUS.BAG IVPB SCH (15:30)
[2017-05-31] MEDS ORDERED: INSULIN REGULAR HUMAN 100 UNITS/ML *VIAL ONE (15:45)
[2017-05-31] MEDS ORDERED: HEMOQUE TEST 1 EACH EACH ONE (15:49)
--- NOTE | 2017-05-31 16:33 | EKG ---
Test Reason : Blood Pressure : / mmHG Vent. Rate : 069 BPM Atrial Rate : 069 BPM P-R Int : 226 ms QRS Dur : 168 ms QT Int : 550 ms P-R-T Axes : 019 029 189 degrees QTc Int : 589 ms SINUS RHYTHM WITH 1ST DEGREE A-V BLOCK LEFT BUNDLE BRANCH BLOCK ABNORMAL ECG WHEN COMPARED WITH ECG OF 12-MAY-2017 00:05, CA INTERVAL HAS INCREASED LEFT BUNDLE BRANCH BLOCK HAS REPLACED INCOMPLETE LEFT BUNDLE BRANCH BLOCK Confirmed by MD Joce, Corwin ([id number]) on 05/31/2017 4:33:43 PM Referred By: Confirmed By:Corwin Hobson MD
[2017-05-31 18:24] VITALS: TEMP 98.4
--- NOTE | 2017-05-31 19:31 | HP ---
Admitting History and Physical - Past Medical History Cardiovascular: Yes: CAD, CHF, HTN Renal/: Yes: Renal Failure, Hemodialysis Heme/Onc: Yes: Other (recent breast cancer post mastectomy and RT now on arimidex) - Past Surgical History Past Surgical History: Yes: CABG, Mastectomy - Smoking History Smoking history: Unknown if ever smoked Have you smoked in the past 12 months: Yes Aproximately how many cigarettes per day: 0 - Alcohol/Substance Use Hx Alcohol Use: No Home Medications - Allergies Allergies/Adverse Reactions: Allergies Allergy/AdvReac Type Severity Reaction Status Date / Time No Known Allergies Allergy Verified 05/31/17 13:03 - Home Medications Home Medications: Ambulatory Orders Acetaminophen [Tylenol -] 650 mg PO Q6H 05/31/17 Alprazolam [Xanax] 0.25 mg PO Q8H 05/31/17 Amiodarone HCl [Cordarone -] 200 mg PO DAILY 05/31/17 Anastrozole [Arimidex -] 1 mg PO DAILY 05/31/17 Aspirin [Aspirin EC] 81 mg PO DAILY 05/31/17 Atorvastatin Ca [Lipitor] 80 mg PO HS 05/31/17 Ferrous Sulfate 325 mg PO DAILY 05/31/17 Ipratropium 0.02% Nebulizer [Atrovent] 1 neb NEB Q4HWA 05/31/17 Levalbuterol HCl [Xopenex] 1.25 mg IH TID 05/31/17 Levothyroxine [Synthroid -] 75 mcg PO DAILY 05/31/17 Lidocaine/Prilocaine Cream [Emla -] 1 applic TP DAILY 05/31/17 Lisinopril [Zestril] 2.5 mg PO DAILY 05/31/17 Mag Hydrox/Aluminum Hyd/Simeth [Alum-Mag Hydroxide-Simeth Liq] 30 ml PO QID Metoprolol Tartrate [Lopressor -] 25 mg PO BID 05/31/17 Mirtazapine 7.5 mg PO HS 05/31/17 Montelukast Na [Singulair -] 10 mg PO HS 05/31/17 Omeprazole Magnesium [Prilosec Otc] 20 mg PO DAILY 05/31/17 Prednisone 5 mg PO DAILY 05/31/17 Sevelamer Carbonate [Renvela] 1,600 mg PO TID 05/31/17 Ticagrelor [Brilinta] 90 mg PO BID 05/31/17 Physical Examination Vital Signs: Vital Signs Temperature 98.4 F 05/31/17 12:31 Pulse Rate 44 L 05/31/17 14:58 Respiratory Rate 20 05/31/17 14:58 Blood Pressure 55/28 05/31/17 14:58 O2 Sat by Pulse Oximetry (%) 100 05/31/17 14:58 Labs: CBC, BMP 05/31/17 13:00 05/31/17 13:00
--- NOTE | 2017-06-01 18:00 | DS ---
Physical Examination Vital Signs: Vital Signs Temperature 98.4 F 05/31/17 12:31 Pulse Rate 44 L 05/31/17 14:58 Respiratory Rate 20 05/31/17 14:58 Blood Pressure 55/28 05/31/17 14:58 O2 Sat by Pulse Oximetry (%) 100 05/31/17 14:58 Labs: CBC, BMP 05/31/17 13:00 05/31/17 13:00 Discharge Summary Reason For Visit: CARDIAC ARREST Condition: Critical - Instructions Disposition: - Home Medications Comprehensive Discharge Medication List: Ambulatory Orders Aspirin [ASA -] 81 mg PO DAILY 12/04/15 Pravastatin Sodium [Pravachol -] 40 mg PO HS 12/04/15 Sevelamer Carbonate [Renvela -] 2,400 mg PO TID 12/04/15 Clopidogrel Bisulfate [Plavix -] 75 mg PO DAILY tablet 05/13/16 Anastrozole [Arimidex -] 1 mg PO HS 01/13/17 Cinacalcet HCl [Sensipar] 60 mg PO DAILY 01/13/17 Folic Acid/Vit B Complex and C [Alysa-[place] Tablet] 0.8 mg PO DAILY 01/13/17 Metoprolol Succinate [Toprol XL -] 12.5 mg PO HS 01/13/17 Pantoprazole Sodium [Protonix] 40 mg PO DAILY 01/13/17 Budesonide [Pulmicort Flexhaler] 90 mcg IH BID #1 [email or web address] 01/19/17 Montelukast Na [Singulair -] 10 mg PO HS #30 tablet 01/19/17 Tiotropium [place] [Spiriva] 1 puff IH DAILY #1 inh 01/19/17 predniSONE [Deltasone -] 20 mg PO BID #20 tablet 01/19/17 Budesonide/Formeterol Fumarate [SYMBICORT 160/4.5mcg -] 2 puff IH BID #1 inhaler 01/29/17 Metoprolol Succinate [Toprol XL -] 25 mg PO BID #60 tab 01/29/17 predniSONE [Deltasone -] 40 mg PO DAILY tablet 01/29/17 Acetaminophen [Tylenol -] 650 mg PO Q6H 05/31/17 Alprazolam [Xanax] 0.25 mg PO Q8H 05/31/17 Amiodarone HCl [Cordarone -] 200 mg PO DAILY 05/31/17 Anastrozole [Arimidex -] 1 mg PO DAILY 05/31/17 Aspirin [Aspirin EC] 81 mg PO DAILY 05/31/17 Atorvastatin Ca [Lipitor] 80 mg PO HS 05/31/17 Ferrous Sulfate 325 mg PO DAILY 05/31/17 Ipratropium 0.02% Nebulizer [Atrovent] 1 neb NEB Q4HWA 05/31/17 Levalbuterol HCl [Xopenex] 1.25 mg IH TID 05/31/17 Levothyroxine [Synthroid -] 75 mcg PO DAILY 05/31/17 Lidocaine/Prilocaine Cream [Emla -] 1 applic TP DAILY 05/31/17 Lisinopril [Zestril] 2.5 mg PO DAILY 05/31/17 Mag Hydrox/Aluminum Hyd/Simeth [Alum-Mag Hydroxide-Simeth Liq] 30 ml PO QID Metoprolol Tartrate [Lopressor -] 25 mg PO BID 05/31/17 Mirtazapine 7.5 mg PO HS 05/31/17 Montelukast Na [Singulair -] 10 mg PO HS 05/31/17 Omeprazole Magnesium [Prilosec Otc] 20 mg PO DAILY 05/31/17 Prednisone 5 mg PO DAILY 05/31/17 Sevelamer Carbonate [Renvela] 1,600 mg PO TID 05/31/17 Ticagrelor [Brilinta] 90 mg PO BID 05/31/17
== END 2017-05-31 15:58 | disposition expired | DRG 208 ==
LOC: JER 12:31 → MERGE 15:02 → JERBED 15:02
PROVIDERS: ADMIT Internal Medicine; ATTEND Internal Medicine
PROC: 06HN33Z Insertion of Infusion Device into Left Femoral Vein, Percutaneous Approach (ICD-10-PCS; principal; 2017-05-31)
PROC: 5A1935Z Respiratory Ventilation, Less than 24 Consecutive Hours (ICD-10-PCS; 2017-05-31)
PROC: 0BH17EZ Insertion of Endotracheal Airway into Trachea, Via Natural or Artificial Opening (ICD-10-PCS; 2017-05-31)
DX: J96.90 Respiratory failure, unspecified, unspecified whether with hypoxia or hypercapnia (principal); N18.6 End stage renal disease; I13.2 Hypertensive heart and chronic kidney disease with heart failure and with stage 5 chronic kidney disease, or end stage renal disease; I47.2 Ventricular tachycardia; I46.9 Cardiac arrest, cause unspecified; R00.1 Bradycardia, unspecified; I25.10 Atherosclerotic heart disease of native coronary artery without angina pectoris; I25.2 Old myocardial infarction; I48.0 Paroxysmal atrial fibrillation; I50.9 Heart failure, unspecified; D64.9 Anemia, unspecified; I44.7 Left bundle-branch block, unspecified; J44.9 Chronic obstructive pulmonary disease, unspecified; E03.9 Hypothyroidism, unspecified; C50.919 Malignant neoplasm of unspecified site of unspecified female breast; E78.00 Pure hypercholesterolemia, unspecified; R26.89 Other abnormalities of gait and mobility; F41.8 Other specified anxiety disorders; M62.81 Muscle weakness (generalized); K21.9 Gastro-esophageal reflux disease without esophagitis; Z95.5 Presence of coronary angioplasty implant and graft; Z95.1 Presence of aortocoronary bypass graft
CPT/HCPCS: 36415; 70450-TC; 71045-TC-FY; 80053; 82550; 82962; 84484; 85025; 85610; 86850; 86900; 86901; 87040; 87186; 93005; 93010; 99285-25